=== PATIENT | female | born 1955 | race Asian ===

== ENCOUNTER 2020-06-26 11:10 | Outpatient (REF) | payer OTHER, SELFPAY ==
[2020-06-26 11:45] LABS: COVID-19 Test Negative (Negative)
== END 2020-06-26 11:11 | disposition home or self-care (01) ==
LOC: HO.LAB 11:10
PROVIDERS: Visit Provider Internal Medicine
DX: Z20.828 Contact with and (suspected) exposure to other viral communicable diseases (principal)
CPT/HCPCS: 87635

== ENCOUNTER 2020-07-17 12:35 | Outpatient (REF) | payer OTHER, SELFPAY ==
[2020-07-17 12:59] LABS: COVID-19 Test Negative (Negative); IDNOW Serial# 55D5AD1C
== END 2020-07-17 12:36 | disposition home or self-care (01) ==
LOC: HO.EMPCOV 12:35
PROVIDERS: Visit Provider Internal Medicine
DX: Z20.828 Contact with and (suspected) exposure to other viral communicable diseases (principal)
CPT/HCPCS: 87635; C9803

== ENCOUNTER 2020-07-31 16:16 | Outpatient (REF) | payer OTHER, SELFPAY ==
[2020-07-31 17:49] LABS: COVID-19 Test Negative (Negative)
== END 2020-07-31 16:17 | disposition home or self-care (01) ==
LOC: HO.EMPCOV 16:16
PROVIDERS: Visit Provider Internal Medicine
DX: Z20.828 Contact with and (suspected) exposure to other viral communicable diseases (principal)
CPT/HCPCS: 87635; C9803

== ENCOUNTER 2020-08-12 08:10 | Outpatient (REF) | payer OTHER, SELFPAY ==
[2020-08-12 11:18] LABS: COVID-19 Test Negative (Negative)
== END 2020-08-12 08:11 | disposition home or self-care (01) ==
LOC: HO.LAB 08:10
PROVIDERS: Visit Provider Internal Medicine
DX: Z20.828 Contact with and (suspected) exposure to other viral communicable diseases (principal)
CPT/HCPCS: 87635; C9803

== ENCOUNTER 2021-01-22 16:46 | Outpatient (REF) | payer OTHER, SELFPAY ==
[2021-01-22 17:32] LABS: COVID-19 Test Negative (Negative)
[2021-01-22 18:00] LABS: Glucose Urine UA NEG (NEG); Leukocyte Esterase Urine NEG (NEG); Nitrite Urine NEG (NEG); Urine Blood TRACE (NEG); Urine Ketones NEG (NEG); Urine Protein NEG (NEG-TRACE)
[2021-01-22 18:01] LABS: Appearance Urine CLEAR; Color Urine YELLOW
[2021-01-22 18:09] LABS: WBC Urine 0 /HPF (0-4)
== END 2021-01-22 16:47 | disposition home or self-care (01) ==
LOC: HO.LAB 16:46
PROVIDERS: Visit Provider Internal Medicine Medical Oncology
DX: R50.9 Fever, unspecified (principal); Z20.822 Contact with and (suspected) exposure to COVID-19
CPT/HCPCS: 36415; 81001; 87635

== ENCOUNTER 2021-01-26 08:17 | Outpatient (REF) | payer OTHER, SELFPAY ==
[2021-01-26 10:12] LABS: MANUAL DIFF FLAG NO
[2021-01-26 10:19] LABS: Basophils Percent Auto 0.4 % (0-2); Eosinophils Absolute Auto 0.1 X10*3/uL (0.0-0.4); Eosinophils Percent Auto 0.6 % (0-4); Hemoglobin 11.6 g/dl (12.0-16.0); Imm Gran Abs Auto 0.03 X10*3/uL (0.00-0.03); Imm Gran Pct Auto 0.4 % (0.0-0.4); Lymphocytes Absolute Auto 2.2 X10*3/uL (1.2-4.9); Lymphocytes Percent Auto 26.3 % (20-40); Mean Corpuscular HGB Conc 30.5 g/dl (31.0-35.0); Mean Corpuscular Volume 78.5 fL (80-98); Mean Platelet Volume 8.9 fL (9.4-12.3); Monocytes Absolute Auto 0.6 X10*3/uL (0.1-1.2); Monocytes Percent Auto 7.2 % (2-11); Neutrophils Absolute Auto 5.5 X10*3/uL (2.0-8.3); Neutrophils Percent Auto 65.1 % (45-73); Platelet Count 374 X10*3/uL (160-400); Red Blood Count 4.84 X10*6/uL (4.20-5.50); Red Cell Distribution Width 14.3 % (11.0-16.0); White Blood Count 8.5 X10*3/uL (4.8-10.8)
[2021-01-26 10:52] LABS: Alanine Aminotransferase 14 U/L (0-31); Albumin Level 3.9 g/dL (3.5-5.0); Alkaline Phosphatase 123 U/L (39-117); Anion Gap 13 (12-20); Aspartate Amino Transferase 17 U/L (5-31); Bilirubin Total 0.4 mg/dL (0.0-1.0); Blood Urea Nitrogen 13 mg/dL (9-16); Calcium 9.3 mg/dL (8.4-10.2); Carbon Dioxide 29 mmol/L (22-29); Chloride 103 mmol/L (96-108); Cholesterol 168 mg/dL; Estimated Glomerular Filt Rate > 60; Glucose Fasting 104 mg/dL (60-99); HDL Cholesterol 44 mg/dL; LDL Cholesterol Calculated 111 mg/dl; Sodium 141 mmol/L (135-145); Total Protein 7.3 g/dL (6.5-8.0); Triglycerides 66 mg/dL
[2021-01-26 11:15] LABS: Thyroid Stimulating Hormone 1.27 uIU/mL (0.32-4.0); Vitamin D 25-OH Total 35.7 ng/mL (>30)
[2021-01-26 11:43] LABS: Erythrocyte Sedimentation Rate 72 MM/HR (0-20)
[2021-01-26 13:25] LABS: Lactate Dehydrogenase 183 U/L (122-220); Rheumatoid Factor < 15.0 IU/mL (<15.0)
[2021-01-30 11:56] LABS: IgA 212 mg/dL (70-320); IgG 1352 mg/dL (600-1540); IgM 291 mg/dL (50-300)
[2021-01-30 14:46] LABS: Anti Nuclear Antibody Pattern Mitotic, Centrosome; Anti Nuclear Antibody Screen POSITIVE (NEGATIVE)
== END 2021-01-26 08:18 | disposition home or self-care (01) ==
LOC: HO.LAB 08:17
PROVIDERS: Internal Medicine Medical Oncology; PCP Internal Medicine; Visit Provider Internal Medicine
DX: R53.83 Other fatigue (principal); R70.0 Elevated erythrocyte sedimentation rate; E78.00 Pure hypercholesterolemia, unspecified; R61 Generalized hyperhidrosis
CPT/HCPCS: 36415; 80053; 80061; 82306; 82784; 83615; 84443; 85025; 85652; 86038; 86039; 86334; 86431

== ENCOUNTER 2021-01-27 12:21 | Outpatient (REF) | payer OTHER, SELFPAY ==
[2021-01-27 13:48] LABS: C Reactive Protein 0.62 mg/dL (< or = 0.50); Iron 30 mcg/dL (30-160); Percent Iron Saturation 11 % (15-50); Total Iron Binding Capacity 277 mcg/dL (228-428); Unsaturated Iron Binding 247 ug/dL
[2021-01-27 14:09] LABS: Ferritin 68 ng/mL (10-250)
[2021-01-30 04:53] LABS: HBS Num1 368.87 mIU/mL (0-7.99); HBc Num1 0.13 S/CO (0.00-0.79); Hepatitis B Core Antibody Nonreactive (Nonreactive); ~HepC Num1 0.21 S/CO (0.00-0.79); ~Hepatitis B Surface Antibody REACTIVE (Nonreactive); ~Hepatitis C Antibody Nonreactive (Nonreactive)
[2021-01-30 04:54] LABS: HBsAGNum1 0.21 S/CO (0.00-0.99); Hepatitis B Surface Antigen Negative (Negative)
[2021-01-31 07:38] LABS: Hepatitis A Antibody IgM 0.21 Index (0-0.79); ~Hepatitis A Antibody IgM Nonreactive (Nonreactive)
== END 2021-01-27 12:22 | disposition home or self-care (01) ==
LOC: HO.HMGCLDS 12:21
PROVIDERS: PCP Internal Medicine; Visit Provider Internal Medicine Medical Oncology
DX: R53.83 Other fatigue (principal); R79.89 Other specified abnormal findings of blood chemistry
CPT/HCPCS: 36415; 82550; 82728; 83540; 86140; 86704; 86706; 86709; 86803; 87340

== ENCOUNTER 2021-01-30 09:56 | Outpatient (REF) | payer OTHER, SELFPAY ==
--- NOTE | ~2021-01-30 | CT_ITS ---
EXAMINATION: CT ABDOMEN AND PELVIS WITHOUT AND WITH CONTRAST CLINICAL INFORMATION: Generalized hyperhidrosis COMPARISON: Previous abdominal ultrasound September 2013 TECHNIQUE: Multidetector volumetric imaging was performed of the abdomen and pelvis before and after the IV administration of 85 mL of Omnipaque 350 intravenous contrast. Sagittal and coronal reformatted images were obtained on the technologist's workstation. This CT examination was performed using dose optimization techniques as appropriate, variously including the following: *Automated exposure control *Adjustment of mA and/or kV according to patient size (this includes techniques or standardized protocols for targeted exams where dose is matched to indication/reason for exam; i.e. extremities or head) *Use of iterative reconstruction technique DLP: 711 mGy-cm FINDINGS: LUNG BASES: The visualized lung bases are unremarkable. LIVER, GALLBLADDER, AND BILIARY TREE: The liver is normal in size, shape, and attenuation. No focal hepatic lesion or biliary ductal dilatation is present. The gallbladder is unremarkable with no evidence of radiopaque gallstones, gallbladder wall thickening, or obvious pericholecystic inflammatory changes. PANCREAS: Unremarkable SPLEEN: The calcification in the spleen likely related to old granulomatous disease. ADRENAL GLANDS: Unremarkable KIDNEYS AND URETERS: There areas of cortical thinning or scarring seen in both kidneys. There is a peripheral irregularly-shaped low-attenuation area in the lateral upper pole of the left kidney. Hounsfield units pre-IV contrast measure 22. Hounsfield units post-IV contrast measure 40 for example axial image 19 series 3 and 38 series 4. Appearance is not compatible with a simple cyst. This may represent a area of infection, infarct or complex cyst. For example, measuring 1.3 x 2.2 cm axial image 35 series 5, sagittal constructed image 34 and coronal reconstructed image 58. BLADDER: Unremarkable GASTROINTESTINAL TRACT: The small and large bowel are unremarkable. The appendix is unremarkable. There is apparent wall thickening of the stomach. This may be artifactual due to underdistention. Clinical correlation recommended. ABDOMINAL WALL: No significant hernia is appreciated. LYMPH NODES: Normal VASCULAR: There is a 1.1 x 1.2 cm splenic artery aneurysm axial image 32 series 4. There is question of a smaller adjacent thrombosed 8 mm aneurysm also seen axial image 32 series 4. PELVIC VISCERA: Unremarkable OSSEOUS STRUCTURES: There is degenerative disc disease at L5-S1. There is lower lumbar spine facet arthritis. There is spondylosis of the visualized lower thoracic spine. CT/CT abdomen pelvis wo/w con IMPRESSION: Bilateral renal cortical thinning or scarring. 1.2 x 2.2 cm heterogeneous peripheral low-attenuation area in the lateral upper pole of the left kidney. This is not compatible with a simple cyst. Differential would include areas of infection, recent infarct and complex cyst. 1.1 x 1.2 cm splenic artery aneurysm and probable adjacent smaller thrombosed 8 mm splenic artery aneurysm. Calcification in the spleen suggestive of old granulomatous disease. Apparent wall thickening of the proximal stomach. This may be artifactual due to underdistention.
--- NOTE | ~2021-01-30 | XR_ITS ---
EXAMINATION: XR CHEST CLINICAL INFORMATION: Generalized hyperhidrosis COMPARISON: Previous chest x-ray from 2008 TECHNIQUE: 2 views of the chest were obtained. FINDINGS: The cardiac and mediastinal contours are normal. The lungs are clear. There is no pleural effusion or pneumothorax. There are degenerative changes of the spine. XR/XR chest 2V IMPRESSION: No evidence for acute disease in the chest.
--- NOTE | ~2021-01-30 | MM_ITS ---
EXAMINATION: MM SCREENING DIGITAL BREAST TOMOSYNTHESIS, BILATERAL CLINICAL INFORMATION: Screening. Asymptomatic. History atypical lobular hyperplasia left breast. The lifetime risk of breast cancer based on the Tyrer-Cuzick Model is 25%. COMPARISON: Mammography: 11/03/2019, 09/28/2018, 05/28/2017, 01/05/2016 TECHNIQUE: Digital breast tomosynthesis is performed in both the craniocaudal and mediolateral oblique views along with computer-aided detection (CAD). Synthesized 2D images are generated from the tomosynthesis. Additional right MLO view is provided. FINDINGS: The breasts are heterogeneously dense, which may obscure small masses (ACR BI-RADS breast composition Category c). Breast tissue composition borders on average fibroglandular. Parenchymal pattern is similar to prior studies. There is no developing density or interval mass or architectural abnormality. No abnormal calcifications. Again, there is biopsy clip marker anterior lower outer left breast. The axilla and skin contours are unremarkable. No significant changes from prior studies. MM/MM tomosynthesis screening BI IMPRESSION: No mammographic evidence of malignancy. ASSESSMENT: BI-RADS 1: Negative RECOMMENDATION: 1. Routine annual mammography screening. 2. The lifetime risk of breast cancer based on the Tyrer-Cuzick Model is 25%. Additional annual adjunct screening with breast MRI may be of benefit in women with a risk score of 20% or greater. This patient's information was entered into a reminder system with a target due date for their next mammogram.
[2021-01-30] MEDS: iohexoL 350 MG/ML 100 ML INFUS..BTL IV (14:01)
[2021-02-01 23:57] LABS: TS Negative Control Passed; TS Panel A 3; TS Panel B 1; TS Positive Control Passed; TSpotTB Negative (SeeBelow)
== END 2021-01-30 09:57 | disposition home or self-care (01) ==
LOC: HO.CT 09:56
PROVIDERS: Absent Provider Internal Medicine Medical Oncology; PCP Internal Medicine; Visit Provider Internal Medicine
DX: Z12.31 Encounter for screening mammogram for malignant neoplasm of breast (principal); R79.89 Other specified abnormal findings of blood chemistry; I88.9 Nonspecific lymphadenitis, unspecified; R50.9 Fever, unspecified; R61 Generalized hyperhidrosis
CPT/HCPCS: 36415; 71046; 74178; 77063; 77067; 86481; Q9967

== ENCOUNTER 2021-02-01 16:33 | Outpatient (REF) | payer OTHER, SELFPAY ==
[2021-02-01 18:59] LABS: Creatinine Urine 54.04 mg/dL; Total Protein Urine Random < 7 mg/dL (<12)
[2021-02-02 11:37] LABS: Complement C3 93 mg/dL (83-193)
[2021-02-02 12:51] LABS: Anti DNA DS Antibody <1 IU/mL
[2021-02-02 22:37] LABS: Cyclic Citrullinated Peptide <16 UNITS
[2021-02-07 05:42] LABS: Aldolase 3.6 U/L (<=8.1)
== END 2021-02-01 16:34 | disposition home or self-care (01) ==
LOC: HO.LAB 16:33
PROVIDERS: PCP Internal Medicine; Visit Provider Student in an Organized Health Care Education/Training Program
DX: R76.8 Other specified abnormal immunological findings in serum (principal)
CPT/HCPCS: 36415; 82085; 84156; 86160; 86200; 86225

== ENCOUNTER 2021-02-13 15:37 | Outpatient (REF) | payer OTHER, SELFPAY ==
--- NOTE | ~2021-02-13 | CT_ITS ---
EXAMINATION: CT ANGIOGRAM ABDOMEN AND PELVIS CLINICAL INFORMATION: Renal infarct. COMPARISON: CT abdomen pelvis 01/30/2021 TECHNIQUE: Multiple axial images were obtained through the abdomen and pelvis following the administration of 100 mL of Omnipaque 350 intravenous contrast. Images were reviewed on a dedicated 3-D workstation. This CT examination was performed using dose optimization techniques as appropriate, variously including the following: *Automated exposure control *Adjustment of mA and/or kV according to patient size (this includes techniques or standardized protocols for targeted exams where dose is matched to indication/reason for exam; i.e. extremities or head) *Use of iterative reconstruction technique DLP: 305 mGy-cm VASCULAR FINDINGS: The distal descending thoracic aorta appears normal. The abdominal aorta appears unremarkable without aneurysm, dissection or significant atherosclerotic changes. The aortic bifurcation is patent. The visualized iliofemoral vessels all appear normal. The celiac and SMA are patent. The HENNA is patent. Again redemonstrated is a splenic artery aneurysm measuring about 1.4 cm. There is a small thrombosed 0.8 cm splenic aneurysm adjacent to this. There is a single renal artery supplying the right kidney which appears normal. On the left, there is a single patent renal artery seen. Of note, the left kidney demonstrates areas of chronic scarring in the lower pole with loss of cortex. Differential diagnosis would include previous infarct versus remote infection. It is also possible that an accessory lower pole branch that is no longer visualized could have thrombosed long ago. Also of note, however, is an area of cortical devascularization in the upper pole of the left kidney which appears to be an infarct, as well. This appears to be active and in evolution. When comparison is made to the prior study from just over 2 weeks ago on 01/30/2021, this appears to have evolved in the interim with slight decrease in size and loss of cortex. NONVASCULAR FINDINGS: LUNG BASES: The visualized lung bases are unremarkable. LIVER, GALLBLADDER, AND BILIARY TREE: The liver is normal in size, shape, and attenuation. No focal hepatic lesion or biliary ductal dilatation is present. The gallbladder is unremarkable with no evidence of radiopaque gallstones, gallbladder wall thickening, or obvious pericholecystic inflammatory changes. PANCREAS: Unremarkable. SPLEEN: Unremarkable. A few punctate splenic granulomas are present. ADRENAL GLANDS: Unremarkable. KIDNEYS AND URETERS: Please see description above regarding renal infarcts in left kidney. Some old chronic infarcts with cortical loss are noted in the right kidney near the upper pole laterally. No hydronephrosis is seen. No renal masses are seen. The ureters appear normal. No renal calculi are seen. BLADDER: Unremarkable. GASTROINTESTINAL TRACT: Wall thickening in the stomach is again seen most likely secondary to underdistention. The small and large bowel are unremarkable. The appendix is unremarkable. ABDOMINAL WALL: No significant hernia is appreciated. LYMPH NODES: No retroperitoneal lymphadenopathy is seen. PELVIC VISCERA: An anteverted uterus is present. An abnormal adnexal mass or free intraperitoneal fluid is not present. OSSEOUS STRUCTURES: Degenerative changes noted in the lower thoracic spine and in the lumbar spine at L5-S1. CT/CT angio abdomen pelvis IMPRESSION: 1. There is evidence of infarctions with chronic scarring in both kidneys, left greater than right. There is one area of active infarct which appears to be an evolution which appeared more acute on the 01/30/2021 CT scan and has already developed some mild cortical thinning at that site. The etiology for these infarcts is not clear. Concerning the largest infarct in the left lower pole, the distribution suggests that it may be secondary to remote thrombosis of an accessory lower pole branch. Chronic infection could produce such findings. Reflux is thought to be unlikely. Thrombotic disease or vasculitis would be other possibilities. 2. Splenic artery aneurysms, one thrombosed. 3. Other findings, as described above. This critical result was discussed with Dr. Vianca Watson at 10:15 AM on 02/14/2021, and it was ascertained that the content and urgency of the report was understood at the time of direct communication.
[2021-02-13 16:25] LABS: MANUAL DIFF FLAG NO
[2021-02-13 16:33] LABS: Basophils Percent Auto 0.1 % (0-2); Eosinophils Absolute Auto 0.1 X10*3/uL (0.0-0.4); Eosinophils Percent Auto 0.6 % (0-4); Hematocrit 33.7 % (37-47); Hemoglobin 10.2 g/dl (12.0-16.0); Imm Gran Abs Auto 0.02 X10*3/uL (0.00-0.03); Imm Gran Pct Auto 0.2 % (0.0-0.4); Lymphocytes Absolute Auto 3.1 X10*3/uL (1.2-4.9); Lymphocytes Percent Auto 31.4 % (20-40); Mean Corpuscular HGB Conc 30.3 g/dl (31.0-35.0); Mean Corpuscular Hemoglobin 23.7 pg (27.0-33.0); Mean Corpuscular Volume 78.4 fL (80-98); Mean Platelet Volume 9.4 fL (9.4-12.3); Monocytes Absolute Auto 0.7 X10*3/uL (0.1-1.2); Monocytes Percent Auto 6.6 % (2-11); Neutrophils Absolute Auto 6.1 X10*3/uL (2.0-8.3); Neutrophils Percent Auto 61.1 % (45-73); Platelet Count 302 X10*3/uL (160-400); Red Cell Distribution Width 14.6 % (11.0-16.0); White Blood Count 9.9 X10*3/uL (4.8-10.8)
[2021-02-14 07:30] LABS: HBS Num1 355.04 mIU/mL (0-7.99); HBc Num1 0.25 S/CO (0.00-0.79); HBsAGNum1 0.31 S/CO (0.00-0.99); Hepatitis B Core Antibody Nonreactive (Nonreactive); Hepatitis B Surface Antigen Negative (Negative); ~Hepatitis B Surface Antibody REACTIVE (Nonreactive); ~Hepatitis C Antibody Nonreactive (Nonreactive)
[2021-02-14 07:37] LABS: Erythrocyte Sedimentation Rate 40 MM/HR (0-20)
[2021-02-15 11:22] LABS: Complement C3 66 mg/dL (83-193)
[2021-02-15 13:27] LABS: PTT (LAC) Screen 36 sec (< OR = 40)
[2021-02-15 22:21] LABS: Kappa Light Chain, Free Serum 26.7 mg/L (3.3-19.4); Kappa/Lambda Lt Ch Free Ratio 1.78 (0.26-1.65)
[2021-02-16 06:27] LABS: Prot Elec - Albumin 3.5 g/dL (3.8-4.8); Prot Elec - Alpha1 0.5 g/dL (0.2-0.3); Prot Elec - Alpha2 0.9 g/dL (0.5-0.9); Prot Elec - Beta 1 0.4 g/dL (0.4-0.6); Prot Elec - Beta 2 0.4 g/dL (0.2-0.5); Prot Elec - Gamma 1.3 g/dL (0.8-1.7); Prot Elec - Total Protein 6.9 g/dL (6.1-8.1)
[2021-02-16 14:36] LABS: Anti Nuclear Antibody Pattern Nuclear, Homogeneous; Anti Nuclear Antibody Screen POSITIVE (NEGATIVE); Anti Nuclear Antibody Titer 1:40 titer
[2021-02-17 14:07] LABS: Myeloperoxidase Antibody <1.0 AI; Proteinase 3 PR3 Antibodies <1.0 AI
[2021-02-17 21:21] LABS: Protein C Activity 153 % (70-180); Protein S Activity rflx Tot&Fr 124 % (60-140)
== END 2021-02-13 15:38 | disposition home or self-care (01) ==
LOC: HO.LAB 15:37
PROVIDERS: Internal Medicine Medical Oncology; PCP Internal Medicine; Visit Provider Internal Medicine Nephrology
DX: N28.0 Ischemia and infarction of kidney (principal); D64.9 Anemia, unspecified; Z11.3 Encounter for screening for infections with a predominantly sexual mode of transmission
CPT/HCPCS: 36415; 74174; 83520; 84155; 84165; 85025; 85302; 85303; 85305; 85306; 85597; 85613; 85652; 85730; 86021; 86038; 86039; 86160; 86704; 86706; 86803; 87340

== ENCOUNTER → 2021-02-15 15:25 | Outpatient (REF) | payer OTHER, SELFPAY ==
--- NOTE | 2021-02-15 15:44 | ECG_ITS ---
Test Reason : ISCHEMIA, INFARC KID Blood Pressure : / mmHG Vent. Rate : 076 BPM Atrial Rate : 076 BPM P-R Int : 164 ms QRS Dur : 072 ms QT Int : 370 ms P-R-T Axes : 071 065 055 degrees QTc Int : 416 ms Normal sinus rhythm Normal ECG No previous ECGs available Referred By: Madalyn Antonio Electronically Signed By:MADALYN ANTONIO
[2021-02-15 16:48] LABS: Immature Retic Fraction 6.6 % (3.0-15.9); Retic HGB Equivalent 26.3 pg (30.0-35.0); Reticulocyte Percent 0.8 % (0.5-1.8); Reticulocytes Absolute 0.038 X10*6/uL (0.026-0.095)
[2021-02-15 17:40] LABS: Folate 8.8 ng/mL (> or = 4.0); Vitamin B12 294 pg/mL (200-900)
[2021-02-15 18:00] LABS: Glucose Urine UA NEG (NEG); Leukocyte Esterase Urine NEG (NEG); Nitrite Urine NEG (NEG); PH 6.5 (5.0-8.0); Urine Blood NEG (NEG); Urine Ketones NEG (NEG); Urine Protein NEG (NEG-TRACE)
[2021-02-15 18:08] LABS: Appearance Urine CLEAR; Color Urine YELLOW
[2021-02-16 14:17] LABS: Bilirubin Total 0.3 mg/dL (0.0-1.0); Iron 24 mcg/dL (30-160); Lactate Dehydrogenase 148 U/L (122-220); Percent Iron Saturation 8 % (15-50); Total Iron Binding Capacity 302 mcg/dL (228-428); Unsaturated Iron Binding 278 ug/dL
[2021-02-16 14:29] LABS: Ferritin 67 ng/mL (10-250)
[2021-02-17 17:23] LABS: Haptoglobin 249 mg/dL (43-212)
[2021-02-23 10:37] LABS: Lyme Abs Screen <0.90 index
== END ==
LOC: HO.CARD 15:25
PROVIDERS: PCP Internal Medicine; Referring Provider Internal Medicine Nephrology; Visit Provider Internal Medicine
DX: N28.0 Ischemia and infarction of kidney (principal); D64.9 Anemia, unspecified; N39.0 Urinary tract infection, site not specified
CPT/HCPCS: 36415; 81003; 82247; 82607; 82728; 82746; 83010; 83540; 83615; 85045; 86617; 86618; 93005

== ENCOUNTER → 2021-02-16 08:33 | Outpatient (REF) | payer OTHER, SELFPAY ==
--- NOTE | 2021-02-16 08:37 | CA_ITS ---
Transthoracic Echocardiogram Patient (Last, First, Middle): Radha Rubi, Gender: Female Date of : 1955 Age: 65 Procedure Date: 02/16/2021 Procedure Type: Transthoracic Echocardiogram Location: OP Height: 162.56 cm Weight: 60.33 kg BSA: 1.64 m2 Heart Rate: bpm BP: 148 / 88 mmHg Design Painter: Referring MD: Randolph Sousa MD Symptoms: N28.0 - Ischemia and infarction of kidney Study Quality: Good ECG Rhythm: Sinus Conclusions: - The left ventricular systolic function is normal. The visually estimated ejection fraction is between 60-65%. - No obvious valvular pathology seen on this study. Findings Left Ventricle Normal left ventricular cavity size. There is normal left ventricular wall thickness. The left ventricular systolic function is normal. The visually estimated ejection fraction is between 60-65%. There is no evidence of regional wall motion abnormalities. Diastolic function is normal for age. Right Ventricle Normal right ventricular cavity size and systolic function. Atria The left atrium is normal in size. The right atrium is normal in size. Aortic Valve There is a normal trileaflet aortic valve. There is no aortic valve stenosis. There is no aortic valve regurgitation. Mitral Valve The mitral valve appears normal. There is trace mitral valve regurgitation. There is no mitral valve stenosis. Pulmonic Valve The pulmonic valve was not well visualized. Tricuspid Valve Normal tricuspid valve structure. There is trace tricuspid valve regurgitation. The pulmonary artery systolic pressure is normal. Great Vessels The aortic annulus, sinuses of valsalva, asc aorta, and aortic arch are normal in size. Venous The inferior vena cava is normal in size and collapses greater than 50% with inspiration. Pericardium/Pleural There is no evidence of pericardial effusion. Prior Study Comparison No prior study available for comparison. Recommendations, Care & Conclusions No obvious valvular pathology seen on this study. Measurements 2D Linear Measurements RVIDd: 2.08 RVIDd Index: 1.27 IVSd: 0.87 0.6-0.9/0.6-1.0 cm LVIDd: 4.50 3.9-5.3/4.2-5.9 cm LVIDd Index: 2.74 2.4-3.2/2.2-3.1 cm/m2 LVIDs: 2.54 2.0-3.6 cm LVPWd: 1.01 0.7-1.1 cm Ao Root: 2.90 2.1-3.5 cm LA Diam: 2.80 2.7-3.8/3.0-4.0 cm LAIDs Index: 1.71 1.5-2.3 cm/m2 LV Mass: 175.06 67-162/88-224 g LV Mass Index: 106.74 43-95/49-115 g/m2 LVOT Diam: 2.00 3.0+(-)1.3 cm 2D Systolic Function EF 4C: 55.20 >55% EF 2C: 57.70 >55% EF BiP: 57.80 >55% Mitral Valve MV Pk E: 0.83 MV PK A: 0.65 MV Decel Time: 279.00 E/A: 1.30 E'Lateral: 9.68 E'Medial: 7.83 E/E' Med: 10.60 E/E' Lat: 8.60 Aortic Valve AoV Pk Sergey: 1.35 AoV Mn Sergey: 1.06 AoV VTI: 0.30 AoV Pk Grad: 7.00 Aov Mn Grad: 5.00 AMANDEEP Cont.VTI: 2.17 LVOT LVOT Pk Sergey: 1.01 LVOT Mn Sergey: 0.67 LVOT VTI: 0.21 LVOT Pk Grad: 4.00 LVOT Mn Grad: 2.00 LVOT Diam: 2.00 LVOT Area: 3.14 Diastolic Function MV Pk E: 0.83 MV Pk A: 0.65 E/A: 1.30 E'Medial: 7.83 E/E' Med: 10.60 E' Laterial: 9.68 E/E' Lat: 8.60 Tricuspid Valve TR Pk Sergey: 2.24 TR Pk Grad: 20.00 RA Press: 3.00 RVSP: 23.00 Great Vessels Aorta Ao Root-2D: 2.90 2.0-3.7 cm Ao Asc: 3.10 2.1-3.4 cm Ao Arch: 2.90 Updated in Other Vendor System with Status of Final Randolph Sousa MD electronically signed on 02/16/2021 2:24:18 PM with status of Final
--- NOTE | 2021-02-16 08:37 | HM_ITS ---
INDICATION FOR THE TEST: Unspecified atrial fibrillation. INTERPRETATION: The patient was hooked up to cardiac event monitor from 02/16/2021 to 03/25/2021 for a total period of 37 days. FINDINGS: Baseline rhythm is normal sinus rhythm with heart rate varying from 64 beats per minute to 101 beats per minute. Rare isolated PACs were noted. The patient had 1 episode of symptom of palpitation on 03/16/2021 at 4:13 a.m., which correlated with sinus rhythm. CONCLUSION: Cardiac event monitor is remarkable. 1. Baseline normal sinus rhythm with rare isolated PACs. 2. No evidence of atrial fibrillation. 3. The patient reported symptoms of palpitations correlated with sinus rhythm. Balta Palmer MD NRS/MODL / [id number]
== END ==
LOC: HO.CARD 08:33
PROVIDERS: Internal Medicine Medical Oncology; PCP Internal Medicine; Visit Provider Internal Medicine
DX: I48.91 Unspecified atrial fibrillation (principal); N28.0 Ischemia and infarction of kidney; D64.9 Anemia, unspecified
CPT/HCPCS: 36415; 93270; 93306

== ENCOUNTER 2021-02-23 14:30 | Outpatient (REF) | payer OTHER, SELFPAY ==
[2021-02-24 07:54] LABS: FIT Int Ctl YES; FIT1 NEGATIVE (NEGATIVE)
[2021-02-24 07:57] LABS: FIT2 NEGATIVE (NEGATIVE)
== END 2021-02-23 14:31 | disposition home or self-care (01) ==
LOC: HO.LNP 14:30
PROVIDERS: Referring Provider Internal Medicine; Visit Provider Internal Medicine Medical Oncology
DX: D64.9 Anemia, unspecified (principal)
CPT/HCPCS: 82274

== ENCOUNTER → 2021-03-08 07:32 | Outpatient (REF) | payer OTHER, SELFPAY ==
--- NOTE | 2021-03-08 07:34 | CA_ITS ---
Transthoracic Echocardiogram Patient (Last, First, Middle): Radha Rubi, Gender: Female Date of : 1955 Age: 65 Procedure Date: 03/08/2021 Procedure Type: Transthoracic Echocardiogram Location: OP Height: 162.56 cm Weight: 61.24 kg BSA: 1.66 m2 Heart Rate: bpm BP: 126 / 76 mmHg Senior Staff Specialized Employment: [facility] MD: Randolph Sousa MD Symptoms: Q21.1 - Atrial septal defect Study Quality: Good ECG Rhythm: Sinus Conclusions: - Bubble study is strongly positive during valsalva; no transit of saline bubbles during rest. Findings Atria Bubble study is strongly positive during valsalva; no transit of saline bubbles during rest. Prior Study Comparison Changes noted compared to prior study dated: 02/16/2021. Updated in Other Vendor System with Status of Final Randolph Sousa MD electronically signed on 03/08/2021 11:52:12 AM with status of Final
== END ==
LOC: HO.CARD 07:32
PROVIDERS: Visit Provider Internal Medicine
DX: Q21.1 Atrial septal defect (principal)
CPT/HCPCS: 93308

== ENCOUNTER → 2021-03-13 15:30 | Outpatient (BNVA) | payer OTHER, SELFPAY | PROVIDERS: PCP Internal Medicine; Referring Provider Internal Medicine; Visit Provider Internal Medicine ==

== ENCOUNTER 2021-03-14 11:10 | Outpatient (REF) | payer OTHER, SELFPAY ==
[2021-03-14 12:57] LABS: MANUAL DIFF FLAG NO
[2021-03-14 13:14] LABS: Baso%MD 0.1 %; Eos%MD 0.4 %; Hematocrit 36.9 % (37-47); Hemoglobin 11.4 g/dl (12.0-16.0); IG%MD 0.3 %; Immature Retic Fraction 12.2 % (3.0-15.9); Lymph%MD 22.4 %; Mean Corpuscular HGB Conc 30.9 g/dl (31.0-35.0); Mean Corpuscular Hemoglobin 24.5 pg (27.0-33.0); Mean Corpuscular Volume 79.2 fL (80-98); Mean Platelet Volume 9.7 fL (9.4-12.3); Mono%MD 6.6 %; Neut%MD 70.2 %; Platelet Count 306 X10*3/uL (160-400); Red Blood Count 4.66 X10*6/uL (4.20-5.50); Red Cell Distribution Width 15.5 % (11.0-16.0); Retic HGB Equivalent 26.5 pg (30.0-35.0); Reticulocyte Percent 0.7 % (0.5-1.8); Reticulocytes Absolute 0.033 X10*6/uL (0.026-0.095); White Blood Count 9.9 X10*3/uL (4.8-10.8)
[2021-03-14 13:15] LABS: Basophils Percent Auto 0.2 % (0-2); Eosinophils Absolute Auto 0.1 X10*3/uL (0.0-0.4); Eosinophils Percent Auto 0.6 % (0-4); Hematocrit 36.9 % (37-47); Hemoglobin 11.2 g/dl (12.0-16.0); Imm Gran Abs Auto 0.06 X10*3/uL (0.00-0.03); Imm Gran Pct Auto 0.6 % (0.0-0.4); Lymphocytes Absolute Auto 2.3 X10*3/uL (1.2-4.9); Lymphocytes Percent Auto 22.8 % (20-40); Mean Corpuscular HGB Conc 30.4 g/dl (31.0-35.0); Mean Corpuscular Volume 79.2 fL (80-98); Mean Platelet Volume 9.7 fL (9.4-12.3); Monocytes Absolute Auto 0.6 X10*3/uL (0.1-1.2); Monocytes Percent Auto 5.7 % (2-11); Neutrophils Absolute Auto 6.9 X10*3/uL (2.0-8.3); Neutrophils Percent Auto 70.1 % (45-73); Platelet Count 297 X10*3/uL (160-400); Red Blood Count 4.66 X10*6/uL (4.20-5.50); Red Cell Distribution Width 15.4 % (11.0-16.0); White Blood Count 9.9 X10*3/uL (4.8-10.8)
[2021-03-14 13:28] LABS: Lactate Dehydrogenase 164 U/L (122-220)
[2021-03-14 13:41] LABS: C Reactive Protein 0.25 mg/dL (< or = 0.50); Rheumatoid Factor < 15.0 IU/mL (<15.0)
[2021-03-14 14:05] LABS: Erythrocyte Sedimentation Rate 56 MM/HR (0-20)
[2021-03-14 14:58] LABS: Band Neutrophils Percent 1 % (3-5); Basophils Abs Manual 0.1 X10*3/uL (0.0-0.3); Basophils Percent Manual 1 % (0-1); Lymphocytes Absolute Manual 2.2 X10*3/uL (0.6-4.8); Lymphocytes Percent Manual 22 % (20-40); Monocytes Absolute Manual 0.4 X10*3/uL (0.0-1.2); Monocytes Percent Manual 4 % (2-11); Neutrophils Absolute Manual 7.2 X10*3/uL (2.2-7.9); Neutrophils Percent Manual 72 % (45-73)
[2021-03-14 15:02] LABS: Acanthocytes 1+ (0-2) /OIF; RBC Morphology NOTED
[2021-03-14 15:03] LABS: Platelet Estimate NORMAL (NORMAL); Platelet Morphology Comment NORMAL
[2021-03-14 19:13] LABS: Alanine Aminotransferase 9 U/L (0-31); Alkaline Phosphatase 127 U/L (39-117); Anion Gap 16 (12-20); Aspartate Amino Transferase 17 U/L (5-31); Bilirubin Direct < 0.2 mg/dL (0.0-0.5); Bilirubin Total 0.4 mg/dL (0.0-1.0); Blood Urea Nitrogen 14 mg/dL (9-16); Calcium 9.4 mg/dL (8.4-10.2); Carbon Dioxide 27 mmol/L (22-29); Chloride 102 mmol/L (96-108); Estimated Glomerular Filt Rate > 60; Glucose Random 96 mg/dL (60-115); Iron 41 mcg/dL (30-160); Percent Iron Saturation 13 % (15-50); Potassium 3.8 mmol/L (3.3-5.1); Sodium 141 mmol/L (135-145); Total Iron Binding Capacity 314 mcg/dL (228-428); Total Protein 7.6 g/dL (6.5-8.0); Unsaturated Iron Binding 273 ug/dL
[2021-03-15 10:26] LABS: Complement C3 127 mg/dL (83-193)
[2021-03-15 13:25] LABS: Ferritin 73 ng/mL (10-250)
[2021-03-16 10:02] LABS: Anti DNA DS Antibody <1 IU/mL; Myeloperoxidase Antibody <1.0 AI; Proteinase 3 PR3 Antibodies <1.0 AI; SM/Ribonucleoprotein Ab <1.0 NEG AI (<1.0 NEG); Smith Protein <1.0 NEG AI (<1.0 NEG)
[2021-03-16 15:47] LABS: Cyclic Citrullinated Peptide <16 UNITS
== END 2021-03-14 11:11 | disposition home or self-care (01) ==
LOC: HO.LAB 11:10
PROVIDERS: Internal Medicine; Internal Medicine Medical Oncology; PCP Internal Medicine; Visit Provider Student in an Organized Health Care Education/Training Program
DX: D64.9 Anemia, unspecified (principal); N28.0 Ischemia and infarction of kidney; I77.6 Arteritis, unspecified; R76.8 Other specified abnormal immunological findings in serum
CPT/HCPCS: 36415; 80048; 80076; 82728; 83540; 83615; 85007; 85025; 85027; 85045; 85652; 86021; 86140; 86160; 86200; 86225; 86235; 86431; 87040

== ENCOUNTER 2021-03-26 08:19 | Outpatient (REF) | payer OTHER, SELFPAY ==
--- NOTE | ~2021-03-26 | CT_ITS ---
EXAMINATION: CT ANGIOGRAM CHEST CLINICAL INFORMATION: Rule out arteritis. COMPARISON: Previous chest x-ray January 2021 and CTA of the abdomen and pelvis January 2021 TECHNIQUE: Multiple axial images were obtained through the chest after the administration of 70 mL of Omnipaque 350 intravenous contrast. Extensive vascular post-processing including 2-dimensional and 3-dimensional reformatted images were created and reviewed on an independent workstation. This CT examination was performed using dose optimization techniques as appropriate, variously including the following: *Automated exposure control *Adjustment of mA and/or kV according to patient size (this includes techniques or standardized protocols for targeted exams where dose is matched to indication/reason for exam; i.e. extremities or head) *Use of iterative reconstruction technique DLP: 120 mGy-cm FINDINGS: The thoracic aorta is normal in caliber. The ascending thoracic aorta measures 3 cm. The aortic arch measures 5 cm. The descending thoracic aorta measures 2.3 cm. No aneurysm, dissection or wall thickening to suggest arteritis is seen. Great vessel origins are patent and normal in caliber without evidence of dilatation, stricture or wall thickening/arteritis. The pulmonary arteries are patent. The pulmonary arteries are normal in caliber without wall thickening to suggest arteritis. The heart does not appear enlarged. There is no pericardial effusion. There is no coronary artery calcification. There are small mediastinal and hilar lymph nodes. There are calcified right infrahilar subcarinal lymph nodes likely related to old granulomatous disease. The lungs are clear. No chest wall mass or enlarged axillary lymph nodes are seen. There is a 1 x 1.4 cm splenic artery aneurysm. There is an adjacent 8 mm thrombosed splenic artery aneurysm. There is irregularity with wall thickening and areas of mild dilatation and narrowing of the right main renal artery. There is question of mild wall thickening of the the distal left renal artery in the the left renal hilum. There are bilateral renal infarcts. There are calcifications in the spleen suggestive of old granulomatous disease. There are degenerative changes of the spine. CT/CT angio chest IMPRESSION: No evidence of arteritis in the chest.
[2021-03-26] MEDS: iohexoL 350 MG/ML 100 ML INFUS..BTL 70 ML IV (09:03)
== END 2021-03-26 08:20 | disposition home or self-care (01) ==
LOC: HO.CT 08:19
PROVIDERS: PCP Internal Medicine; Visit Provider Internal Medicine
DX: I77.6 Arteritis, unspecified (principal); N28.0 Ischemia and infarction of kidney; R76.8 Other specified abnormal immunological findings in serum
CPT/HCPCS: 71275; Q9967

== ENCOUNTER 2021-04-14 10:55 | Outpatient (REF) | payer OTHER, SELFPAY ==
[2021-04-14 11:32] LABS: COVID-19 Test Negative (Negative); IDNOW Serial# 9DD0AD1C
== END 2021-04-14 10:56 | disposition home or self-care (01) ==
LOC: HO.LAB 10:55
PROVIDERS: Visit Provider Internal Medicine
DX: Z20.822 Contact with and (suspected) exposure to COVID-19 (principal)
CPT/HCPCS: 36415; 87635

== ENCOUNTER 2021-04-18 08:31 | Outpatient (REF) | payer OTHER, SELFPAY ==
[2021-04-18 08:52] LABS: COVID-19 Test Negative (Negative)
== END 2021-04-18 08:32 | disposition home or self-care (01) ==
LOC: HO.LAB 08:31
PROVIDERS: PCP Internal Medicine; Visit Provider Internal Medicine
DX: Z20.822 Contact with and (suspected) exposure to COVID-19 (principal)
CPT/HCPCS: 36415; 87635; C9803

== ENCOUNTER 2021-04-21 08:50 | Outpatient (REF) | payer OTHER, SELFPAY ==
[2021-04-21 10:13] LABS: MANUAL DIFF FLAG NO
[2021-04-21 10:15] LABS: Basophils Percent Auto 0.3 % (0-2); Eosinophils Absolute Auto 0.1 X10*3/uL (0.0-0.4); Eosinophils Percent Auto 0.9 % (0-4); Hematocrit 35.6 % (37-47); Hemoglobin 10.6 g/dl (12.0-16.0); Imm Gran Abs Auto 0.03 X10*3/uL (0.00-0.03); Imm Gran Pct Auto 0.3 % (0.0-0.4); Lymphocytes Absolute Auto 2.2 X10*3/uL (1.2-4.9); Lymphocytes Percent Auto 21.6 % (20-40); Mean Corpuscular HGB Conc 29.8 g/dl (31.0-35.0); Mean Corpuscular Hemoglobin 23.4 pg (27.0-33.0); Mean Corpuscular Volume 78.6 fL (80-98); Mean Platelet Volume 9.8 fL (9.4-12.3); Monocytes Absolute Auto 0.8 X10*3/uL (0.1-1.2); Monocytes Percent Auto 7.7 % (2-11); Neutrophils Percent Auto 69.2 % (45-73); Platelet Count 318 X10*3/uL (160-400); Red Blood Count 4.53 X10*6/uL (4.20-5.50); Red Cell Distribution Width 15.6 % (11.0-16.0); White Blood Count 10.1 X10*3/uL (4.8-10.8)
[2021-04-21 10:46] LABS: Alanine Aminotransferase 10 U/L (0-31); Albumin Level 3.9 g/dL (3.5-5.0); Alkaline Phosphatase 110 U/L (39-117); Anion Gap 13 (12-20); Aspartate Amino Transferase 11 U/L (5-31); Bilirubin Total 0.4 mg/dL (0.0-1.0); Blood Urea Nitrogen 16 mg/dL (9-16); C Reactive Protein 0.29 mg/dL (< or = 0.50); Calcium 9.5 mg/dL (8.4-10.2); Carbon Dioxide 27 mmol/L (22-29); Chloride 104 mmol/L (96-108); Estimated Glomerular Filt Rate > 60; Glucose Random 96 mg/dL (60-115); Potassium 3.8 mmol/L (3.3-5.1); Sodium 140 mmol/L (135-145)
[2021-04-21 10:57] LABS: Ferritin 66 ng/mL (10-250)
[2021-04-21 11:04] LABS: Erythrocyte Sedimentation Rate 50 MM/HR (0-20)
[2021-04-23 19:07] LABS: ANA Pattern 2 Nuclear, Homogeneous; ANA Titer 2 1:40 titer; Anti Nuclear Antibody Pattern Mitotic, Centrosome; Anti Nuclear Antibody Screen POSITIVE (NEGATIVE); Anti Nuclear Antibody Titer 1:40 titer
== END 2021-04-21 08:51 | disposition home or self-care (01) ==
LOC: HO.LAB 08:50
PROVIDERS: PCP Internal Medicine; Visit Provider Internal Medicine
DX: D64.9 Anemia, unspecified (principal); R70.0 Elevated erythrocyte sedimentation rate; N28.0 Ischemia and infarction of kidney
CPT/HCPCS: 36415; 80053; 82728; 85025; 85652; 86038; 86039; 86140

== ENCOUNTER 2021-04-27 10:01 | Outpatient (REF) | payer OTHER, SELFPAY ==
--- NOTE | ~2021-04-27 | US_ITS ---
EXAMINATION: ULTRASOUND ARTERIAL RIGHT LOWER EXTREMITY CLINICAL INFORMATION: Right groin pain and swelling post angiogram 04/25/2021 COMPARISON: None TECHNIQUE: Doppler color and grayscale evaluation of the arteries of the right groin was performed including waveform spectral analysis. Ultrasound-guided manual compression of the small common femoral artery aneurysm was performed in 2 5 minute intervals. FINDINGS: The right common femoral artery is patent. There is a small partially thrombosed right common femoral artery aneurysm measuring 1.3 x 1.1 x 0.7 cm sagittal transverse and AP dimension. This has a 0.3 cm neck. Images following manual ultrasound-guided compression demonstrate complete occlusion of the small pseudoaneurysm. The right common femoral vein is patent. There is no hematoma. 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 This was occluded using ultrasound guided compression.
== END 2021-04-27 10:02 | disposition home or self-care (01) ==
LOC: HO.US 10:01
PROVIDERS: PCP Internal Medicine; Visit Provider Radiology Diagnostic Radiology
DX: R10.31 Right lower quadrant pain (principal); R19.00 Intra-abdominal and pelvic swelling, mass and lump, unspecified site; Z98.890 Other specified postprocedural states
CPT/HCPCS: 93926

== ENCOUNTER 2021-04-30 07:30 | Outpatient (REF) | payer OTHER, SELFPAY ==
--- NOTE | ~2021-04-30 | US_ITS ---
EXAMINATION: ULTRASOUND ARTERIAL RIGHT LOWER EXTREMITY CLINICAL INFORMATION: Follow up pseudoaneurysm COMPARISON: Previous exam 04/27/2021 TECHNIQUE: Doppler, color and grayscale evaluation of the arteries of the right groin including waveform spectral analysis FINDINGS: The right common femoral artery is patent. No patent pseudoaneurysm is seen. There is a residual hypoechoic soft tissue anterior/superficial to the common femoral artery measuring 1.3 x 0.4 x 0.9 cm that does not contain flow compatible with old pseudoaneurysm site seen on prior exam. This is decreased in size from previous exam when this measured 1.3 x 0.7 x 1.1 cm. US/US arterial duplex LE RT IMPRESSION: Occluded right common femoral artery pseudoaneurysm.
== END 2021-04-30 07:31 | disposition home or self-care (01) ==
LOC: HO.US 07:30
PROVIDERS: Visit Provider Radiology Diagnostic Radiology
DX: Q14.2 Congenital malformation of optic disc (principal)
CPT/HCPCS: 93926

== ENCOUNTER 2021-05-03 12:24 | Outpatient (REF) | payer OTHER, SELFPAY ==
--- NOTE | ~2021-05-03 | US_ITS ---
EXAMINATION: US EXTRACRANIAL CAROTID DUPLEX, BILATERAL CLINICAL INFORMATION: Arterial fibromuscular dysplasia COMPARISON: None TECHNIQUE: Real-time ultrasound and Doppler techniques (integrating B-mode 2-D vascular images, Doppler spectral analysis and color-flow Doppler imaging) were utilized to interrogate the extracranial carotid arteries, the vertebral arteries and proximal subclavian arteries bilaterally. The degree of stenosis is determined by criteria similar to NASCET. FINDINGS: Right Side: 1. There is no atherosclerotic plaque seen in the bifurcation/proximal ICA region. There is question of mild wall thickening of the right common carotid artery and proximal external carotid artery. 2. The common carotid artery PSV proximally is 63 cm/s and distally 53 cm/s. 3. The proximal internal carotid artery velocities are 51 cm/s systolic and 19 cm/s diastolic. 4. The proximal external carotid artery PSV is 70 cm/s. 5. The vertebral artery shows antegrade flow. 6. The subclavian artery waveforms are normal. Left Side: 1. There is no atherosclerotic plaque seen in the bifurcation/proximal ICA region. There is question of mild wall thickening of the left common carotid artery and proximal ICA. 2. The common carotid artery PSV proximally is 96 cm/s and distally 60 cm/s. 3. The proximal internal carotid artery velocities are 52 cm/s systolic and 20 cm/s diastolic. 4. The proximal external carotid artery PSV is 62 cm/s. 5. The vertebral artery shows antegrade flow. 6. The subclavian artery waveforms are normal. US/US carotid duplex BI IMPRESSION: 1. RIGHT: No atherosclerotic plaque or evidence of stenosis. Question mild wall thickening of the common carotid artery and proximal external carotid artery. 2. LEFT: No atherosclerotic plaque or evidence of stenosis. Question mild wall thickening of the common carotid artery and proximal internal carotid artery. Follow-up CTA of the neck may be helpful.
== END 2021-05-03 12:25 | disposition home or self-care (01) ==
LOC: HO.US 12:24
PROVIDERS: PCP Internal Medicine; Visit Provider Internal Medicine
DX: I77.3 Arterial fibromuscular dysplasia (principal)
CPT/HCPCS: 93880

== ENCOUNTER 2021-05-16 09:38 | Outpatient (REF) | payer OTHER, SELFPAY ==
--- NOTE | ~2021-05-16 | CT_ITS ---
EXAMINATION: CT ANGIOGRAM NECK WITH CONTRAST CT ANGIOGRAM BRAIN WITH CONTRAST CLINICAL INFORMATION: Arterial fibromuscular dysplasia. COMPARISON: Carotid ultrasound May 03, 2021. TECHNIQUE: Test bolus sequences followed by intravenous administration 70 mL of Omnipaque 350. Helical imaging was performed in the axial plane from the thoracic inlet to the skull vertex. Delayed postcontrast imaging of the head was also performed. The data was processed at the medicine technologist workstation for generation of MIP sequences. Angled MIPs and volume rendered reformatted images were also generated at an offline 3D workstation. Stenoses are assessed in accordance with NASCET criteria unless otherwise indicated. This CT examination was performed using dose optimization techniques as appropriate, variously including the following: *Automated exposure control *Adjustment of mA and/or kV according to patient size (this includes techniques or standardized protocols for targeted exams where dose is matched to indication/reason for exam; i.e. extremities or head) *Use of iterative reconstruction technique DLP: 2285 mGy-cm FINDINGS: Head CT: There is no intracranial hemorrhage, large acute infarction, or mass lesion. The ventricles are normal in size and configuration without evidence of hydrocephalus. The dural venous sinuses are normally opacified. No abnormal enhancement is seen. The visualized paranasal sinuses and mastoid air cells are clear. Neck CTA: The aortic arch and great vessel origins are patent. There is mild wall thickening involving the distal aspect of the bilateral common carotid arteries extending to the carotid bifurcation and along the proximal aspects of the bilateral external carotid arteries. No luminal narrowing or irregularity is seen. There is no evidence of beading or pseudoaneurysm. The cervical ICAs are normal. The vertebral arteries are unremarkable. Evaluation for wall thickening along the great vessel origins is somewhat limited due to artifact emanating from venous contrast. Head CTA: No intracranial aneurysm is seen. The intracranial internal carotid arteries appear normal. The anterior cerebral artery, anterior communicating artery, and middle cerebral arteries appear normal. The intradural vertebral arteries and basilar artery appear normal. The posterior cerebral arteries appear normal. 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 Non-vascular findings: Mild degenerative changes are seen within the cervical spine including at the C5-C6 and C6-C7 levels. There is no significant narrowing of the spinal canal. Left-sided neural foraminal stenosis is seen at C5-C6. The cervical soft tissues are within normal limits. CT/CT angio head neck IMPRESSION: CT head: No intracranial hemorrhage or large acute infarction. CTA neck: Mild wall thickening is seen involving the distal aspect of the bilateral common carotid arteries extending to the carotid bifurcations and along the proximal external carotid artery branches. No luminal narrowing. No pseudoaneurysm. CTA head: Normal appearance of the intracranial arteries. Findings discussed directly with the patient on 05/17/2021 at 11:43 AM.
[2021-05-16] MEDS: iohexoL 350 MG/ML 100 ML INFUS..BTL 70 ML IV (10:34)
== END 2021-05-16 09:39 | disposition home or self-care (01) ==
LOC: HO.CT 09:38
PROVIDERS: Visit Provider Internal Medicine
DX: I77.3 Arterial fibromuscular dysplasia (principal)
CPT/HCPCS: 70496; 70498; Q9967

== ENCOUNTER 2021-05-18 12:24 | Outpatient (REF) | payer OTHER, SELFPAY ==
[2021-05-18 12:56] LABS: COVID-19 Test Negative (Negative)
== END 2021-05-18 12:25 | disposition home or self-care (01) ==
LOC: HO.LAB 12:24
PROVIDERS: Visit Provider Internal Medicine
DX: Z20.822 Contact with and (suspected) exposure to COVID-19 (principal)
CPT/HCPCS: 36415; 87635; C9803

== ENCOUNTER 2021-05-28 08:37 | Outpatient (REF) | payer OTHER, SELFPAY ==
[2021-05-28 10:33] LABS: MANUAL DIFF FLAG NO
[2021-05-28 10:43] LABS: Basophils Percent Auto 0.4 % (0-2); Eosinophils Absolute Auto 0.2 X10*3/uL (0.0-0.4); Eosinophils Percent Auto 1.7 % (0-4); Hematocrit 36.4 % (37-47); Imm Gran Abs Auto 0.04 X10*3/uL (0.00-0.03); Imm Gran Pct Auto 0.4 % (0.0-0.4); Lymphocytes Absolute Auto 2.3 X10*3/uL (1.2-4.9); Lymphocytes Percent Auto 23.4 % (20-40); Mean Corpuscular HGB Conc 30.2 g/dl (31.0-35.0); Mean Corpuscular Hemoglobin 24.1 pg (27.0-33.0); Mean Corpuscular Volume 79.6 fL (80-98); Mean Platelet Volume 9.6 fL (9.4-12.3); Monocytes Absolute Auto 0.6 X10*3/uL (0.1-1.2); Monocytes Percent Auto 6.5 % (2-11); Neutrophils Absolute Auto 6.6 X10*3/uL (2.0-8.3); Neutrophils Percent Auto 67.6 % (45-73); Platelet Count 276 X10*3/uL (160-400); Red Blood Count 4.57 X10*6/uL (4.20-5.50); Red Cell Distribution Width 15.9 % (11.0-16.0); White Blood Count 9.8 X10*3/uL (4.8-10.8)
[2021-05-28 11:02] LABS: Alanine Aminotransferase 21 U/L (0-31); Albumin Level 4.1 g/dL (3.5-5.0); Alkaline Phosphatase 136 U/L (39-117); Anion Gap 11 (12-20); Aspartate Amino Transferase 19 U/L (5-31); Bilirubin Total 0.6 mg/dL (0.0-1.0); Blood Urea Nitrogen 15 mg/dL (9-16); Calcium 9.4 mg/dL (8.4-10.2); Carbon Dioxide 29 mmol/L (22-29); Chloride 105 mmol/L (96-108); Cholesterol 193 mg/dL; Estimated Glomerular Filt Rate > 60; Glucose Random 93 mg/dL (60-115); HDL Cholesterol 56 mg/dL; LDL Cholesterol Calculated 122 mg/dl; Sodium 141 mmol/L (135-145); Total Protein 7.4 g/dL (6.5-8.0); Triglycerides 79 mg/dL
[2021-05-28 11:21] LABS: Erythrocyte Sedimentation Rate 38 MM/HR (0-20)
[2021-05-30 13:16] LABS: Anti Nuclear Antibody Screen NEGATIVE (NEGATIVE)
[2021-05-30 14:57] LABS: Antibody to SS-A Antigen <1.0 NEG AI (<1.0 NEG); Antibody to SS-B Antigen <1.0 NEG AI (<1.0 NEG)
== END 2021-05-28 08:38 | disposition home or self-care (01) ==
LOC: HO.LAB 08:37
PROVIDERS: Absent Provider Internal Medicine; PCP Internal Medicine; Visit Provider Nurse Practitioner Family
DX: D64.9 Anemia, unspecified (principal); N28.0 Ischemia and infarction of kidney; R76.8 Other specified abnormal immunological findings in serum; I77.6 Arteritis, unspecified
CPT/HCPCS: 36415; 80053; 80061; 85025; 85652; 86038; 86039; 86235

== ENCOUNTER 2021-07-10 12:01 | Outpatient (REF) | payer OTHER, SELFPAY ==
[2021-07-10 12:21] LABS: MANUAL DIFF FLAG NO
[2021-07-10 12:39] LABS: Basophils Percent Auto 0.2 % (0-2); Eosinophils Absolute Auto 0.1 X10*3/uL (0.0-0.4); Eosinophils Percent Auto 1.2 % (0-4); Hematocrit 38.3 % (37.0-47.0); Hemoglobin 11.5 g/dl (12.0-16.0); Imm Gran Abs Auto 0.04 X10*3/uL (0.00-0.03); Imm Gran Pct Auto 0.4 % (0.0-0.4); Lymphocytes Absolute Auto 2.6 X10*3/uL (1.2-4.9); Lymphocytes Percent Auto 27.2 % (20-40); Mean Corpuscular Hemoglobin 23.9 pg (27.0-33.0); Mean Corpuscular Volume 79.5 fL (80.0-98.0); Mean Platelet Volume 9.5 fL (9.4-12.3); Monocytes Absolute Auto 0.7 X10*3/uL (0.1-1.2); Monocytes Percent Auto 7.1 % (2-11); Neutrophils Percent Auto 63.9 % (45-73); Platelet Count 279 X10*3/uL (160-400); Red Blood Count 4.82 X10*6/uL (4.20-5.50); Red Cell Distribution Width 16.2 % (11.0-16.0); White Blood Count 9.5 X10*3/uL (4.8-10.8)
[2021-07-10 13:16] LABS: Alanine Aminotransferase 21 U/L (0-31); Albumin Level 4.1 g/dL (3.5-5.0); Alkaline Phosphatase 125 U/L (39-117); Anion Gap 14 (12-20); Aspartate Amino Transferase 21 U/L (5-31); Bilirubin Total 0.3 mg/dL (0.0-1.0); Blood Urea Nitrogen 19 mg/dL (9-16); C Reactive Protein 0.11 mg/dL (< or = 0.50); Calcium 9.8 mg/dL (8.4-10.2); Carbon Dioxide 27 mmol/L (22-29); Chloride 102 mmol/L (96-108); Estimated Glomerular Filt Rate > 60; Glucose Random 89 mg/dL (60-115); Magnesium 2.2 mg/dL (1.6-2.6); Potassium 4.3 mmol/L (3.3-5.1); Sodium 139 mmol/L (135-145); Total Protein 7.4 g/dL (6.5-8.0)
[2021-07-10 13:30] LABS: TSH reflex Free T4 2.52 uIU/mL (0.32-4.0)
[2021-07-10 13:49] LABS: Erythrocyte Sedimentation Rate 30 MM/HR (0-20); Folate > 20.0 ng/mL (> or = 4.0); Vitamin B12 334 pg/mL (200-900)
[2021-07-11 12:56] LABS: Complement C3 133 mg/dL (83-193)
== END 2021-07-10 12:02 | disposition home or self-care (01) ==
LOC: HO.LAB 12:01
PROVIDERS: Referring Provider Internal Medicine Medical Oncology; Visit Provider Internal Medicine Rheumatology
DX: D64.9 Anemia, unspecified (principal); M79.10 Myalgia, unspecified site; R53.83 Other fatigue; N28.0 Ischemia and infarction of kidney
CPT/HCPCS: 36415; 80053; 82550; 82607; 82746; 83735; 84443; 85025; 85652; 86140; 86160

== ENCOUNTER 2021-08-17 16:47 | Outpatient (REF) | payer OTHER, SELFPAY ==
[2021-08-17 16:57] LABS: MANUAL DIFF FLAG NO
[2021-08-17 17:07] LABS: Basophils Percent Auto 0.3 % (0-2); Eosinophils Absolute Auto 0.1 X10*3/uL (0.0-0.4); Eosinophils Percent Auto 1.4 % (0-4); Hematocrit 36.2 % (37.0-47.0); Imm Gran Abs Auto 0.02 X10*3/uL (0.00-0.03); Imm Gran Pct Auto 0.2 % (0.0-0.4); Lymphocytes Absolute Auto 3.4 X10*3/uL (1.2-4.9); Mean Corpuscular HGB Conc 30.4 g/dl (31.0-35.0); Mean Corpuscular Hemoglobin 24.4 pg (27.0-33.0); Mean Corpuscular Volume 80.3 fL (80.0-98.0); Mean Platelet Volume 9.4 fL (9.4-12.3); Monocytes Absolute Auto 0.6 X10*3/uL (0.1-1.2); Neutrophils Absolute Auto 6.1 x10*3/uL (2.0-8.3); Neutrophils Percent Auto 59.1 % (45-73); Platelet Count 241 X10*3/uL (160-400); Red Blood Count 4.51 X10*6/uL (4.20-5.50); Red Cell Distribution Width 15.7 % (11.0-16.0); White Blood Count 10.3 X10*3/uL (4.8-10.8)
[2021-08-17 17:27] LABS: Alanine Aminotransferase 20 U/L (0-31); Albumin Level 3.9 g/dL (3.5-5.0); Alkaline Phosphatase 123 U/L (39-117); Anion Gap 11 (12-20); Aspartate Amino Transferase 19 U/L (5-31); Bilirubin Total 0.2 mg/dL (0.0-1.0); Blood Urea Nitrogen 26 mg/dL (9-16); Calcium 9.3 mg/dL (8.4-10.2); Carbon Dioxide 28 mmol/L (22-29); Chloride 103 mmol/L (96-108); Estimated Glomerular Filt Rate > 60; Glucose Fasting 118 mg/dL (60-99); Potassium 4.1 mmol/L (3.3-5.1); Sodium 138 mmol/L (135-145); Total Protein 7.2 g/dL (6.5-8.0)
[2021-08-17 18:35] LABS: Erythrocyte Sedimentation Rate 23 MM/HR (0-20)
[2021-08-20 11:55] LABS: CRP High Sensitivity 0.6 mg/L
== END 2021-08-17 16:48 | disposition home or self-care (01) ==
LOC: HO.LAB 16:47
PROVIDERS: Visit Provider Internal Medicine
DX: D64.9 Anemia, unspecified (principal); I77.3 Arterial fibromuscular dysplasia; M79.10 Myalgia, unspecified site
CPT/HCPCS: 36415; 80053; 85025; 85652; 86141

== ENCOUNTER 2021-09-24 10:07 | Outpatient (REF) | payer OTHER, SELFPAY ==
--- NOTE | ~2021-09-24 | US_ITS ---
EXAMINATION: US RETROPERITONEAL LIMITED (RENAL ONLY) CLINICAL INFORMATION: FMD. COMPARISON: Previous CTA of the abdomen January 2021 and outside angiogram April 2021 TECHNIQUE: Doppler color and reyes-scale evaluation of the kidneys. Doppler color and reyes-scale evaluation of the renal arteries including waveform spectral analysis FINDINGS: RIGHT KIDNEY: 10 x 3.3 x 4 cm (SAG x AP x TRV). The kidney is normal in size, contour, and echogenicity. There is renal cortical thinning or scarring in the upper pole. No calculi or focal parenchymal lesions. No hydronephrosis. LEFT KIDNEY: 9 x 4.6 x 5.1 cm (SAG x AP x TRV). The kidney is normal in size, contour, and echogenicity. There is renal cortical thinning or scarring in the lower pole. No calculi or focal parenchymal lesions. No hydronephrosis. The visualized abdominal aorta is normal in caliber and has normal peak systolic velocity of 82 cm/s. The right renal artery is well visualized. Focal areas of dilatation on angiogram and CTA are not well appreciated by ultrasound. Right renal artery peak systolic velocities measure 162, 121 and 93 cm/s proximally, in the midportion and distally. The right renal artery to aorta ratio is 2. Resistive indices in the interlobar arteries of the right kidney are normal measuring 0.6. The right renal vein is patent. The left renal artery is not as well visualized as the right . Left renal artery velocities measure 186, 231 and 61 cm/s proximally, in the midportion and distally. Left renal artery to aorta ratio is 2.8. No visible left renal artery stenosis is seen. Left renal artery peak systolic velocities may be related to angle of the renal artery and tortuosity. Left renal resistive indices in the interlobar arteries of the left kidney are normal measuring 0.5-0.6. The left renal vein is patent. US/US renal doppler IMPRESSION: Bilateral renal cortical thinning or scarring. Elevated peak systolic velocities in the left renal artery questionable for less than 60% stenosis. No visible stenosis is seen and increased velocities may be related to vessel tortuosity. Normal right renal artery. Focal areas of dilatation appreciated on CTA and angiogram are not appreciated by ultrasound.
== END 2021-09-24 10:08 | disposition home or self-care (01) ==
LOC: HO.US 10:07
PROVIDERS: Visit Provider Internal Medicine Nephrology
DX: N28.0 Ischemia and infarction of kidney (principal)
CPT/HCPCS: 76775; 93975

== ENCOUNTER 2021-10-09 10:01 | Outpatient (REF) | payer OTHER, SELFPAY ==
--- NOTE | ~2021-10-09 | CT_ITS ---
EXAMINATION: CT ANGIOGRAM ABDOMEN AND PELVIS CLINICAL INFORMATION: 172.8 - Aneurysm of the other specified arteries. COMPARISON: CT imaging of the head and neck 05/16/2021, CT angiogram chest 02/24/2021, CT angiogram abdomen and pelvis 02/13/[address] abdomen pelvis 01/30/2021. TECHNIQUE: Multiple axial images were obtained through the abdomen and pelvis following the administration of 80 mL of Omnipaque 350 intravenous contrast. Images were reviewed on a dedicated 3-D workstation. This CT examination was performed using dose optimization techniques as appropriate, variously including the following: *Automated exposure control *Adjustment of mA and/or kV according to patient size (this includes techniques or standardized protocols for targeted exams where dose is matched to indication/reason for exam; i.e. extremities or head) *Use of iterative reconstruction technique DLP: 241 mGy-cm VASCULAR FINDINGS: The distal descending thoracic aorta appears normal. The abdominal aorta appears unremarkable without aneurysm, dissection or significant atherosclerotic changes. The aortic bifurcation is patent. The visualized iliofemoral vessels all appear normal. The celiac and SMA are patent. The HENNA is patent. Again redemonstrated is a splenic artery aneurysm measuring about 1.4 cm. There is a small thrombosed 0.8 cm splenic aneurysm adjacent to this with some rim calcification. There is a single renal artery supplying the right kidney which appears normal. On the left, there is a single patent renal artery seen. Again seen in the left kidney are areas of chronic scarring in the lower pole with loss of cortex. Differential diagnosis remains the same including previous infarct versus remote infection. It is also possible that an accessory lower pole branch that is no longer visualized could have thrombosed long ago. The previously seen new area of cortical devascularization in the upper pole of the left kidney has now evolved to an area of complete scarring. No new areas of renal infarction are seen. NONVASCULAR FINDINGS: LUNG BASES: The visualized lung bases are unremarkable. LIVER, GALLBLADDER, AND BILIARY TREE: The liver is normal in size, shape, and attenuation. No focal hepatic lesion or biliary ductal dilatation is present. The gallbladder is unremarkable with no evidence of radiopaque gallstones, gallbladder wall thickening, or obvious pericholecystic inflammatory changes. PANCREAS: Unremarkable. SPLEEN: Unremarkable. A few punctate splenic granulomas are present. ADRENAL GLANDS: Unremarkable. KIDNEYS AND URETERS: Please see description above regarding renal infarcts in left kidney. Some old chronic infarcts with cortical loss are noted in the right kidney near the upper pole laterally. No hydronephrosis is seen. No renal masses are seen. The ureters appear normal. No renal calculi are seen. BLADDER: Unremarkable. GASTROINTESTINAL TRACT: Wall thickening in the stomach is again seen most likely secondary to underdistention. The small and large bowel are unremarkable. The appendix is unremarkable. ABDOMINAL WALL: No significant hernia is appreciated. LYMPH NODES: No retroperitoneal lymphadenopathy is seen. PELVIC VISCERA: An anteverted uterus is present. An abnormal adnexal mass or free intraperitoneal fluid is not present. OSSEOUS STRUCTURES: Degenerative changes noted in the lower thoracic spine and in the lumbar spine at L5-S1. CT/CT angio abdomen pelvis IMPRESSION: 1. There is evidence of infarctions with chronic scarring in both kidneys, left greater than right. The area of this infarction that was evolving in the left upper pole previously now appears complete with an area of scarring remaining. The etiology for these infarcts is not clear. Other imaging studies have failed to show evidence of vasculitis. Please correlate with serologic workup as well. 2. Splenic artery aneurysms, one thrombosed. These appear stable. 3. Other findings, as described above.
[2021-10-09 11:50] LABS: MANUAL DIFF FLAG NO
[2021-10-09 11:58] LABS: Basophils Percent Auto 0.2 % (0-2); Eosinophils Absolute Auto 0.1 X10*3/uL (0.0-0.4); Hematocrit 36.7 % (37.0-47.0); Hemoglobin 11.4 g/dl (12.0-16.0); Imm Gran Abs Auto 0.02 X10*3/uL (0.00-0.03); Imm Gran Pct Auto 0.2 % (0.0-0.4); Lymphocytes Absolute Auto 2.8 X10*3/uL (1.2-4.9); Lymphocytes Percent Auto 33.6 % (20-40); Mean Corpuscular HGB Conc 31.1 g/dl (31.0-35.0); Mean Corpuscular Hemoglobin 24.7 pg (27.0-33.0); Mean Corpuscular Volume 79.4 fL (80.0-98.0); Mean Platelet Volume 9.8 fL (9.4-12.3); Monocytes Absolute Auto 0.6 X10*3/uL (0.1-1.2); Monocytes Percent Auto 6.9 % (2-11); Neutrophils Absolute Auto 4.9 x10*3/uL (2.0-8.3); Neutrophils Percent Auto 58.1 % (45-73); Platelet Count 245 X10*3/uL (160-400); Red Blood Count 4.62 X10*6/uL (4.20-5.50); Red Cell Distribution Width 14.6 % (11.0-16.0); White Blood Count 8.4 X10*3/uL (4.8-10.8)
[2021-10-09 12:11] LABS: Alanine Aminotransferase 16 U/L (0-31); Albumin Level 3.9 g/dL (3.5-5.0); Alkaline Phosphatase 110 U/L (39-117); Anion Gap 11 (12-20); Aspartate Amino Transferase 18 U/L (5-31); Bilirubin Total 0.6 mg/dL (0.0-1.0); Blood Urea Nitrogen 21 mg/dL (9-16); Calcium 9.4 mg/dL (8.4-10.2); Carbon Dioxide 29 mmol/L (22-29); Chloride 105 mmol/L (96-108); Estimated Glomerular Filt Rate > 60; Glucose Random 95 mg/dL (60-115); Potassium 4.1 mmol/L (3.3-5.1); Sodium 141 mmol/L (135-145); Total Protein 6.9 g/dL (6.5-8.0)
[2021-10-09 12:29] LABS: Ferritin 25 ng/mL (10-250)
[2021-10-09 12:34] LABS: Erythrocyte Sedimentation Rate 20 MM/HR (0-20)
[2021-10-09] MEDS: iohexoL 350 MG/ML 100 ML INFUS..BTL IV (12:49)
[2021-10-10 13:52] LABS: Vitamin B12 321 pg/mL (200-900)
== END 2021-10-09 10:02 | disposition home or self-care (01) ==
LOC: HO.CT 10:01
PROVIDERS: Internal Medicine; PCP Internal Medicine; Visit Provider Internal Medicine
DX: I72.8 Aneurysm of other specified arteries (principal); I10 Essential (primary) hypertension
CPT/HCPCS: 36415; 74174; 80053; 82607; 82728; 85025; 85652; Q9967

== ENCOUNTER 2021-11-09 08:00 | Outpatient (RCR) | payer OTHER, SELFPAY ==
[2021-11-02 14:10] VITALS: BP 147/75; PULSE 68
--- NOTE | 2021-12-13 08:15 | MHC.PT.EP ---
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 She reports of having sudden onset of symptoms over vertigo this morning. She describes her symptoms as room spinning which is present with rolling in the bed, looking up or down and supine to sit, she also has nausea. On PT examination she was positive in B roll test. Due to this she does her ADLS very slowly. 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 She would benefit from skilled PT to address the aforementioned impairments and improve tolerance to functional activities. Frequency and Duration: The patient will be seen 2/week for 4 weeks Short Term Goals: Patient to be educated on symptoms and indications to return to therapy when needed min 4 weeks. Pt will be negative for nystagmus or reports of vertigo in all diagnostic positions bilaterally to resolution of BPPV in 4 weeks. Chcf Goals: Patient to be able to functionally move in all planes and directions without provocation of dizziness to show return to PLOF in 6 weeks. Treatment Plan: Modalities to reduce pain, spasms and effusion. Manual therapy to restore motion and function. Therapeutic exercise to improve strength and flexibility. Neuromuscular re-education for posture and balance. Therapeutic activities to return to functional activities of daily living. Electronically signed by: Mary Field, PT DPT Please sign and return to therapist. Thank you for your referral.
--- NOTE | 2021-12-13 08:15 | MHC.PT.DC ---
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 She has therefore been d/c from PT. Electronically signed by: Mary Field PT DPT Please sign and return to therapist. Thank you for your referral.
== END 2021-12-13 08:15 | disposition home or self-care (01) ==
LOC: HO.PT 08:00
PROVIDERS: PCP Internal Medicine; Visit Provider Internal Medicine
DX: R42 Dizziness and giddiness (principal)
CPT/HCPCS: 95992; 97112; 97161

== ENCOUNTER 2022-02-04 13:45 | Outpatient (REF) | payer OTHER, SELFPAY ==
[2022-02-04 16:12] LABS: MANUAL DIFF FLAG NO
[2022-02-04 16:30] LABS: Basophils Percent Auto 0.2 % (0-2); Eosinophils Absolute Auto 0.1 X10*3/uL (0.0-0.4); Eosinophils Percent Auto 0.9 % (0-4); Hematocrit 36.5 % (37.0-47.0); Hemoglobin 11.2 g/dl (12.0-16.0); Imm Gran Abs Auto 0.03 X10*3/uL (0.00-0.03); Imm Gran Pct Auto 0.3 % (0.0-0.4); Lymphocytes Percent Auto 31.9 % (20-40); Mean Corpuscular HGB Conc 30.7 g/dl (31.0-35.0); Mean Corpuscular Hemoglobin 24.7 pg (27.0-33.0); Mean Corpuscular Volume 80.4 fL (80.0-98.0); Mean Platelet Volume 9.6 fL (9.4-12.3); Monocytes Absolute Auto 0.5 X10*3/uL (0.1-1.2); Monocytes Percent Auto 4.9 % (2-11); Neutrophils Absolute Auto 5.7 x10*3/uL (2.0-8.3); Neutrophils Percent Auto 61.8 % (45-73); Platelet Count 216 X10*3/uL (160-400); Red Blood Count 4.54 X10*6/uL (4.20-5.50); Red Cell Distribution Width 14.6 % (11.0-16.0); White Blood Count 9.3 X10*3/uL (4.8-10.8)
[2022-02-04 16:30] LABS: Appearance Urine CLEAR; Color Urine YELLOW; Glucose Urine UA NEG (NEG); Leukocyte Esterase Urine 1+ (NEG); Nitrite Urine NEG (NEG); PH 5.5 (5.0-8.0); Specific Gravity - Urine 1.025 (1.005-1.025); Urine Blood TRACE (NEG); Urine Ketones NEG (NEG); Urine Protein NEG (NEG-TRACE)
[2022-02-04 16:37] LABS: Squamous Epithelial Cell Urine 1+ /LPF
[2022-02-04 16:38] LABS: Bacteria Urine TRACE /LPF
[2022-02-04 16:49] LABS: Alanine Aminotransferase 18 U/L (0-31); Albumin Level 3.9 g/dL (3.5-5.0); Alkaline Phosphatase 105 U/L (39-117); Anion Gap 15 (12-20); Aspartate Amino Transferase 16 U/L (5-31); Bilirubin Total 0.3 mg/dL (0.0-1.0); Blood Urea Nitrogen 19 mg/dL (9-16); C Reactive Protein 0.06 mg/dL (< or = 0.50); Calcium 9.2 mg/dL (8.4-10.2); Carbon Dioxide 27 mmol/L (22-29); Chloride 103 mmol/L (96-108); Estimated Glomerular Filt Rate > 60; Glucose Random 170 mg/dL (60-115); Potassium 3.7 mmol/L (3.3-5.1); Sodium 141 mmol/L (135-145); Total Protein 6.8 g/dL (6.5-8.0)
[2022-02-04 17:22] LABS: Erythrocyte Sedimentation Rate 14 MM/HR (0-20)
[2022-02-04 17:37] LABS: Creatinine Urine 139.97 mg/dL
[2022-02-04 18:29] LABS: Iron 58 mcg/dL (30-160); Percent Iron Saturation 17 % (15-50); Total Iron Binding Capacity 348 mcg/dL (228-428); Unsaturated Iron Binding 290 ug/dL
[2022-02-04 18:49] LABS: Ferritin 26 ng/mL (10-250); Vitamin D 25-OH Total 31.9 ng/mL (>30)
[2022-02-04 19:01] LABS: Vitamin B12 243 pg/mL (200-900)
[2022-02-05 10:47] LABS: Estimated Average Glucose 117 mg/dL; Hemoglobin A1c % 5.7 %
[2022-02-05 16:27] LABS: Anti DNA DS Antibody <1 IU/mL; SM/Ribonucleoprotein Ab <1.0 NEG AI (<1.0 NEG); Smith Protein <1.0 NEG AI (<1.0 NEG)
[2022-02-05 18:21] LABS: Complement C3 132 mg/dL (83-193)
[2022-02-07 07:12] LABS: Neutrophil Cyto Ab Screen NEGATIVE (NEGATIVE)
[2022-02-12 01:37] LABS: Intrinsic Factor Antibodies Negative (Negative)
== END 2022-02-04 13:46 | disposition home or self-care (01) ==
LOC: HO.LAB 13:45
PROVIDERS: Internal Medicine Medical Oncology; PCP Internal Medicine; Visit Provider Internal Medicine Rheumatology
DX: R76.8 Other specified abnormal immunological findings in serum (principal); I77.3 Arterial fibromuscular dysplasia; M79.10 Myalgia, unspecified site; D64.9 Anemia, unspecified; R73.9 Hyperglycemia, unspecified
CPT/HCPCS: 36415; 80053; 81001; 82043; 82306; 82550; 82607; 82728; 83036; 83540; 85025; 85652; 86036; 86037; 86140; 86160; 86225; 86235; 86340; 87086

== ENCOUNTER 2022-02-08 08:27 | Outpatient (REF) | payer OTHER, SELFPAY ==
[2022-02-08 11:06] LABS: Appearance Urine CLEAR; Color Urine YELLOW; Glucose Urine UA NEG (NEG); Leukocyte Esterase Urine NEG (NEG); Nitrite Urine NEG (NEG); Specific Gravity - Urine 1.025 (1.005-1.025); Urine Blood TRACE (NEG); Urine Ketones NEG (NEG); Urine Protein NEG (NEG-TRACE)
[2022-02-08 11:26] LABS: Mucus Urine 1+ /LPF; Squamous Epithelial Cell Urine TRACE /LPF; WBC Urine 0 /HPF (0-4)
[2022-02-08 12:22] LABS: Glucose Fasting 97 mg/dL (60-99)
[2022-02-08 12:33] LABS: Cholesterol 212 mg/dL; HDL Cholesterol 52 mg/dL; LDL Cholesterol Calculated 141 mg/dl; Triglycerides 96 mg/dL
[2022-02-08 13:17] LABS: Creatinine Urine 160.19 mg/dL; Microalbum/Creatinine Ratio Ur 5.6 ug/mg cr
[2022-02-10 02:27] LABS: LDL Cholesterol Direct 140 mg/dL (<100)
[2022-02-11 11:42] LABS: Haptoglobin 177 mg/dL (43-212)
== END 2022-02-08 08:28 | disposition home or self-care (01) ==
LOC: HO.LAB 08:27
PROVIDERS: Internal Medicine; Internal Medicine Medical Oncology; Internal Medicine Rheumatology; Visit Provider Internal Medicine
DX: N28.0 Ischemia and infarction of kidney (principal); R76.8 Other specified abnormal immunological findings in serum; D64.9 Anemia, unspecified
CPT/HCPCS: 36415; 80061; 81001; 81003; 82043; 82947; 83010; 83540; 83721

== ENCOUNTER 2022-02-11 16:35 | Outpatient (REF) | payer OTHER, SELFPAY ==
--- NOTE | ~2022-02-11 | MR_ITS ---
EXAMINATION: MRI BRAIN WITHOUT CONTRAST CLINICAL INFORMATION: Multiple sclerosis. COMPARISON: CT head angiogram of the head and neck 05/16/2021. TECHNIQUE: Multiplanar MR imaging of the brain was performed without contrast. FINDINGS: There are scattered nonspecific foci of T2 FLAIR signal hyperintensity involving the supratentorial white matter. No clear evidence of infratentorial white matter disease. There is no intracranial mass effect or midline shift. No abnormal extra-axial collection. Lateral and third ventricles are normal. No hydrocephalus. Midline structures including the cervicomedullary junction are normal. No acute territorial infarct. No pathological magnetic susceptibility artifact. Intracranial vascular flow voids are maintained. There is no mastoid middle ear effusion. No active paranasal sinus disease. MR/MR head/brain wo con IMPRESSION: There are a few scattered nonspecific signal changes involving the supratentorial white matter. Otherwise unremarkable brain MRI.
== END 2022-02-11 16:36 | disposition home or self-care (01) ==
LOC: HO.MRI 16:35
PROVIDERS: Visit Provider Psychiatry & Neurology Neurology
DX: G35 Multiple sclerosis (principal)
CPT/HCPCS: 70551

== ENCOUNTER 2022-02-15 08:32 | Outpatient (REF) | payer OTHER, SELFPAY ==
[2022-02-15 09:47] LABS: Glucose Fasting 97 mg/dL (60-99)
[2022-02-15 10:12] LABS: TSH reflex Free T4 2.09 uIU/mL (0.32-4.0)
[2022-02-15 19:53] LABS: Alanine Aminotransferase 16 U/L (0-31); Albumin Level 3.9 g/dL (3.5-5.0); Alkaline Phosphatase 107 U/L (39-117); Anion Gap 10 (12-20); Aspartate Amino Transferase 17 U/L (5-31); Bilirubin Total 0.5 mg/dL (0.0-1.0); Blood Urea Nitrogen 18 mg/dL (9-16); Calcium 9.1 mg/dL (8.4-10.2); Carbon Dioxide 27 mmol/L (22-29); Chloride 105 mmol/L (96-108); Estimated Glomerular Filt Rate 56; Glucose Random 96 mg/dL (60-115); Potassium 4.2 mmol/L (3.3-5.1); Sodium 138 mmol/L (135-145); Total Protein 6.8 g/dL (6.5-8.0)
[2022-02-15 20:15] LABS: T4 Thyroxine 7.4 ug/dL (4.5-12.0)
[2022-02-18 13:26] LABS: SARS COV2 IgG NEGATIVE
== END 2022-02-15 08:33 | disposition home or self-care (01) ==
LOC: HO.LAB 08:32
PROVIDERS: Absent Provider Internal Medicine; PCP Internal Medicine; Visit Provider Internal Medicine
DX: Z20.822 Contact with and (suspected) exposure to COVID-19 (principal); R41.89 Other symptoms and signs involving cognitive functions and awareness; D64.9 Anemia, unspecified; R53.83 Other fatigue
CPT/HCPCS: 36415; 80053; 82947; 84436; 84443; 86769

== ENCOUNTER 2022-03-01 08:35 | Outpatient (REF) | payer OTHER, SELFPAY ==
--- NOTE | ~2022-03-01 | US_ITS ---
EXAMINATION: US VENOUS WITH DOPPLER UPPER EXTREMITY, LEFT CLINICAL INFORMATION: Pain and swelling left upper extremity. COMPARISON: None TECHNIQUE: Ultrasound of the upper extremity is performed using compression sonography and color and pulse Doppler flow with assessment of augmentation of flow. There is also imaging and Doppler assessment of the jugular and subclavian veins. Spectral analysis with color-flow imaging is performed. FINDINGS: Respiratory variation, normal compression, and augmented flow are noted throughout the upper extremity including the axillary, brachial, cubital, and radial and ulnar veins. There is normal flow in the internal jugular and subclavian veins. There is no visible deep or superficial thrombophlebitis. There is a hypoechoic soft tissue mass just inferior to antecubital fossa with no vascular flow. It measures approximately 1.1 x 1.5 x 0.9 cm and may represent a small hematoma. Patient did have recent blood drawn from the same upper extremity 5-7 days ago. If the patient's symptoms progress, a followup ultrasound in 5 -7 days might be of value to exclude proximal propagation from a nonvisualized distal arm vein. US/US venous duplex UE LT IMPRESSION: No DVT demonstrated in the left upper extremity. Soft tissue hypoechoic nonvascular mass-like area in the antecubital fossa likely a small hematoma. There may be mass effect on the median nerve.
== END 2022-03-01 08:36 | disposition home or self-care (01) ==
LOC: HO.US 08:35
PROVIDERS: PCP Internal Medicine; Visit Provider Nurse Practitioner Family
DX: M79.602 Pain in left arm (principal); R60.9 Edema, unspecified
CPT/HCPCS: 93971

== ENCOUNTER 2022-05-31 09:00 | Outpatient (REF) | payer OTHER, SELFPAY ==
[2022-05-31 10:55] LABS: MANUAL DIFF FLAG NO
[2022-05-31 10:56] LABS: Basophils Absolute Auto 0.1 X10*3/uL (0.0-0.2); Basophils Percent Auto 0.7 % (0-2); Eosinophils Absolute Auto 0.1 X10*3/uL (0.0-0.4); Hematocrit 40.7 % (37.0-47.0); Hemoglobin 12.5 g/dl (12.0-16.0); Imm Gran Abs Auto 0.02 X10*3/uL (0.00-0.03); Imm Gran Pct Auto 0.2 % (0.0-0.4); Lymphocytes Absolute Auto 2.2 X10*3/uL (1.2-4.9); Lymphocytes Percent Auto 26.6 % (20-40); Mean Corpuscular HGB Conc 30.7 g/dl (31.0-35.0); Mean Corpuscular Hemoglobin 24.8 pg (27.0-33.0); Mean Corpuscular Volume 80.6 fL (80.0-98.0); Mean Platelet Volume 10.1 fL (9.4-12.3); Monocytes Absolute Auto 0.5 X10*3/uL (0.1-1.2); Monocytes Percent Auto 6.1 % (2-11); Neutrophils Absolute Auto 5.3 x10*3/uL (2.0-8.3); Neutrophils Percent Auto 65.4 % (45-73); Platelet Count 274 X10*3/uL (160-400); Red Blood Count 5.05 X10*6/uL (4.20-5.50); White Blood Count 8.1 X10*3/uL (4.8-10.8)
[2022-05-31 11:18] LABS: Alanine Aminotransferase 16 U/L (0-31); Albumin Level 4.3 g/dL (3.5-5.0); Alkaline Phosphatase 112 U/L (39-117); Anion Gap 18 (12-20); Aspartate Amino Transferase 19 U/L (5-31); Bilirubin Total 0.5 mg/dL (0.0-1.0); Blood Urea Nitrogen 20 mg/dL (9-16); C Reactive Protein 0.07 mg/dL (< or = 0.50); Calcium 9.7 mg/dL (8.4-10.2); Carbon Dioxide 24 mmol/L (22-29); Chloride 102 mmol/L (96-108); Cholesterol 230 mg/dL; Estimated Glomerular Filt Rate 56; Glucose Fasting 107 mg/dL (60-99); HDL Cholesterol 49 mg/dL; LDL Cholesterol Calculated 158 mg/dl; Potassium 4.4 mmol/L (3.3-5.1); Sodium 140 mmol/L (135-145); Total Protein 7.3 g/dL (6.5-8.0); Triglycerides 119 mg/dL
[2022-05-31 11:35] LABS: Erythrocyte Sedimentation Rate 20 MM/HR (0-20)
[2022-05-31 11:41] LABS: Thyroid Stimulating Hormone 1.81 uIU/mL (0.32-4.0)
[2022-06-04 13:52] LABS: Anti DNA DS Antibody <1 IU/mL; SM/Ribonucleoprotein Ab <1.0 NEG AI (<1.0 NEG); Smith Protein <1.0 NEG AI (<1.0 NEG)
[2022-06-04 19:42] LABS: Anti Nuclear Antibody Pattern Nuclear, Homogeneous; Anti Nuclear Antibody Screen POSITIVE (NEGATIVE); Anti Nuclear Antibody Titer 1:40 titer
== END 2022-05-31 09:01 | disposition home or self-care (01) ==
LOC: HO.10HDL 09:00
PROVIDERS: Internal Medicine Rheumatology; Visit Provider Nurse Practitioner Family
DX: R76.8 Other specified abnormal immunological findings in serum (principal); D64.9 Anemia, unspecified; R53.83 Other fatigue; N28.0 Ischemia and infarction of kidney
CPT/HCPCS: 36415; 80053; 80061; 84443; 85025; 85652; 86038; 86039; 86140; 86225; 86235

== ENCOUNTER 2022-06-21 12:18 | Outpatient (REF) | payer OTHER, SELFPAY ==
--- NOTE | ~2022-06-21 | MM_ITS ---
EXAMINATION: MM SCREENING DIGITAL BREAST TOMOSYNTHESIS, BILATERAL CLINICAL INFORMATION: Screening. Asymptomatic. Previous left breast biopsy demonstrating hyperplasia. The lifetime risk of breast cancer based on the Tyrer-Cuzick Model is 6.7%. COMPARISON: Mammography: April 25, 2021 and studies dating back to October 08, 2010 TECHNIQUE: Digital breast tomosynthesis is performed in both the craniocaudal and mediolateral oblique views along with computer-aided detection (CAD). Synthesized 2D images are generated from the tomosynthesis. FINDINGS: The breasts are heterogeneously dense, which may obscure small masses (ACR BI-RADS breast composition Category c). There are no new significant masses, abnormal calcifications, or other abnormalities. MM/MM tomosynthesis screening BI IMPRESSION: No significant changes ASSESSMENT: BI-RADS 1: Negative RECOMMENDATION: Routine annual mammography screening. This patient's information was entered into a reminder system with a target due date for their next mammogram.
== END 2022-06-21 12:19 | disposition home or self-care (01) ==
LOC: HO.MAMMO 12:18
PROVIDERS: PCP Internal Medicine; Visit Provider Internal Medicine
DX: Z12.31 Encounter for screening mammogram for malignant neoplasm of breast (principal)
CPT/HCPCS: 77063; 77067

== ENCOUNTER 2022-06-21 12:30 | Outpatient (RCR) | payer OTHER, SELFPAY | END 2022-07-29 13:24 | disposition home or self-care (01) | LOC: HO.PT 12:30 | PROVIDERS: Visit Provider Internal Medicine | DX: R42 Dizziness and giddiness (principal) | CPT/HCPCS: 95992; 97112; 97161 ==

== ENCOUNTER 2022-06-22 10:52 | Outpatient (REF) | payer OTHER, SELFPAY ==
[2022-06-22 11:38] LABS: COVID-19 Test Negative (Negative); IDNOW Serial# 16C4AD1C
== END 2022-06-22 10:53 | disposition home or self-care (01) ==
LOC: HO.LAB 10:52
PROVIDERS: Visit Provider Internal Medicine
DX: Z20.822 Contact with and (suspected) exposure to COVID-19 (principal); J06.9 Acute upper respiratory infection, unspecified
CPT/HCPCS: 87635

== ENCOUNTER 2022-09-02 12:22 | Outpatient (REF) | payer OTHER, SELFPAY ==
[2022-09-02 13:13] LABS: Influenza A PCR NEGATIVE (Negative); Influenza B PCR NEGATIVE (Negative); Resp Syncy Virus RNA Qual PCR NEGATIVE (Negative); SARS COV2 PCR INHOUSE NEGATIVE (Negative)
== END 2022-09-02 12:23 | disposition home or self-care (01) ==
LOC: HO.LAB 12:22
PROVIDERS: PCP Internal Medicine; Visit Provider Physician Assistant Medical
DX: Z20.822 Contact with and (suspected) exposure to COVID-19 (principal); R68.89 Other general symptoms and signs
CPT/HCPCS: 0241U

== ENCOUNTER 2022-09-26 11:05 | Outpatient (REF) | payer OTHER, SELFPAY ==
[2022-09-26 11:48] LABS: Influenza A PCR NEGATIVE (Negative); Influenza B PCR NEGATIVE (Negative); Resp Syncy Virus RNA Qual PCR NEGATIVE (Negative); SARS COV2 PCR INHOUSE POSITIVE (Negative)
== END 2022-09-26 11:06 | disposition home or self-care (01) ==
LOC: HO.LNP 11:05
PROVIDERS: Visit Provider Internal Medicine
DX: Z20.822 Contact with and (suspected) exposure to COVID-19 (principal)
CPT/HCPCS: 0241U

== ENCOUNTER 2022-09-26 14:06 | Outpatient (REF) | payer OTHER, SELFPAY ==
--- NOTE | ~2022-09-26 | XR_ITS ---
EXAMINATION: XR CHEST CLINICAL INFORMATION: Cough COMPARISON: 01/30/2021 TECHNIQUE: 2 views of the chest were obtained. FINDINGS: The lungs are well expanded. There is no focal consolidation, edema, or effusion. No pneumothorax. The cardiomediastinal silhouette is within normal limits. No acute osseous abnormality. XR/XR chest 2V IMPRESSION: Clear lungs.
== END 2022-09-26 14:07 | disposition home or self-care (01) ==
LOC: HO.XRAY 14:06
PROVIDERS: PCP Internal Medicine; Visit Provider Internal Medicine Medical Oncology
DX: R05.9 Cough, unspecified (principal)
CPT/HCPCS: 71046

== ENCOUNTER 2022-10-05 09:15 | Outpatient (REF) | payer OTHER, SELFPAY ==
[2022-10-05 10:28] LABS: Influenza A PCR NEGATIVE (Negative); Influenza B PCR NEGATIVE (Negative); Resp Syncy Virus RNA Qual PCR NEGATIVE (Negative); SARS COV2 PCR INHOUSE POSITIVE (Negative)
== END 2022-10-05 09:16 | disposition home or self-care (01) ==
LOC: HO.LAB 09:15
PROVIDERS: Visit Provider Internal Medicine Medical Oncology
DX: Z20.822 Contact with and (suspected) exposure to COVID-19 (principal)
CPT/HCPCS: 0241U

== ENCOUNTER → 2022-10-07 13:33 | Outpatient (BNVA) | payer OTHER, SELFPAY | PROVIDERS: PCP Internal Medicine; Visit Provider Internal Medicine | DX: Z13.89 Encounter for screening for other disorder (principal) ==

== ENCOUNTER 2022-10-22 10:56 | Outpatient (REF) | payer OTHER, SELFPAY ==
[2022-10-22 11:10] LABS: MANUAL DIFF FLAG NO
[2022-10-22 11:46] LABS: Basophils Percent Auto 0.3 % (0-2); Eosinophils Percent Auto 0.4 % (0-4); Hematocrit 39.3 % (37.0-47.0); Imm Gran Abs Auto 0.04 X10*3/uL (0.00-0.03); Imm Gran Pct Auto 0.4 % (0.0-0.4); Lymphocytes Absolute Auto 3.1 X10*3/uL (1.2-4.9); Lymphocytes Percent Auto 32.7 % (20-40); Mean Corpuscular HGB Conc 30.5 g/dl (31.0-35.0); Mean Corpuscular Hemoglobin 24.7 pg (27.0-33.0); Mean Platelet Volume 10.5 fL (9.4-12.3); Monocytes Absolute Auto 0.6 X10*3/uL (0.1-1.2); Monocytes Percent Auto 6.5 % (2-11); Neutrophils Absolute Auto 5.6 x10*3/uL (2.0-8.3); Neutrophils Percent Auto 59.7 % (45-73); Platelet Count 239 X10*3/uL (160-400); Red Blood Count 4.85 X10*6/uL (4.20-5.50); Red Cell Distribution Width 14.8 % (11.0-16.0); White Blood Count 9.5 X10*3/uL (4.8-10.8)
[2022-10-22 12:25] LABS: Erythrocyte Sedimentation Rate 28 MM/HR (0-20)
[2022-10-22 12:36] LABS: Alanine Aminotransferase 13 U/L (0-31); Albumin Level 4.2 g/dL (3.5-5.0); Alkaline Phosphatase 105 U/L (39-117); Anion Gap 13 (12-20); Aspartate Amino Transferase 16 U/L (5-31); Bilirubin Total 0.8 mg/dL (0.0-1.0); Blood Urea Nitrogen 15 mg/dL (9-16); Calcium 9.5 mg/dL (8.4-10.2); Carbon Dioxide 26 mmol/L (22-29); Chloride 103 mmol/L (96-108); Cholesterol 229 mg/dL; Estimated Glomerular Filt Rate > 60; Glucose Fasting 101 mg/dL (60-99); HDL Cholesterol 49 mg/dL; Iron 85 mcg/dL (30-160); LDL Cholesterol Calculated 160 mg/dl; Percent Iron Saturation 26 % (15-50); Potassium 4.1 mmol/L (3.3-5.1); Sodium 138 mmol/L (135-145); Total Iron Binding Capacity 321 mcg/dL (228-428); Total Protein 7.1 g/dL (6.5-8.0); Triglycerides 102 mg/dL; Unsaturated Iron Binding 236 ug/dL
[2022-10-22 12:52] LABS: Ferritin 34 ng/mL (10-250); Thyroid Stimulating Hormone 1.88 uIU/mL (0.32-4.0)
[2022-10-22 15:56] LABS: Vitamin B12 405 pg/mL (200-900); Vitamin D 25-OH Total 39.1 ng/mL (>30)
== END 2022-10-22 10:57 | disposition home or self-care (01) ==
LOC: HO.LAB 10:56
PROVIDERS: PCP Internal Medicine; Visit Provider Internal Medicine Medical Oncology
DX: I10 Essential (primary) hypertension (principal); D64.9 Anemia, unspecified; N28.0 Ischemia and infarction of kidney; E78.00 Pure hypercholesterolemia, unspecified; M79.10 Myalgia, unspecified site; E78.5 Hyperlipidemia, unspecified
CPT/HCPCS: 36415; 80053; 80061; 82306; 82607; 82728; 83540; 84443; 85025; 85652

== ENCOUNTER 2022-10-23 13:41 | Outpatient (REF) | payer OTHER, SELFPAY ==
--- NOTE | ~2022-10-23 | CT_ITS ---
EXAMINATION: CT HEAD WITH CONTRAST CLINICAL INFORMATION: Headache COMPARISON: MRI of the brain without contrast 02/11/2022 TECHNIQUE: Contiguous axial imaging was performed from the skull base to vertex following the administration of 85 mL of Omnipaque [address] examination was performed using dose optimization techniques as appropriate, variously including the following: *Automated exposure control *Adjustment of mA and/or kV according to patient size (this includes techniques or standardized protocols for targeted exams where dose is matched to indication/reason for exam; i.e. extremities or head) *Use of iterative reconstruction technique DLP: 1015 mGy-cm FINDINGS: No acute osseous or soft tissue abnormality. The mastoid air cells and visualized portions of the paranasal sinuses are well aerated. There is no evidence of acute intracranial hemorrhage or territorial infarction. No abnormal mass effect or midline shift is seen. Hammond to white matter differentiation is well preserved. No extra-axial fluid collections are identified. No abnormal intracranial enhancement. No hydrocephalus. No significant volume loss. There is no abnormal attenuation within the brain parenchyma. CT/CT head/brain w IV con IMPRESSION: No acute intracranial pathology.
--- NOTE | ~2022-10-23 | CT_ITS ---
EXAMINATION: CTA CHEST, ABDOMEN AND PELVIS CLINICAL INFORMATION: Reason for Exam I77.3 - Arterial fibromuscular dysplasia COMPARISON: Prior CT angiogram of the abdomen 10/09/[address] angiogram of the chest 03/26/2021. TECHNIQUE: After noncontrast timing run, volumetric imaging was performed from the thoracic inlet through the pubic symphysis following administration of 85 mL of Omnipaque 350. Sagittal and coronal reformatted images were obtained on the technologist's workstation. Additional 2-D coronal and sagittal reformatted images and axial 3-D maximum intensity projection MIP images are generated on the CT workstation. This CT examination was performed using dose optimization techniques as appropriate, variously including the following: *Automated exposure control *Adjustment of mA and/or kV according to patient size (this includes techniques or standardized protocols for targeted exams where dose is matched to indication/reason for exam; i.e. extremities or head) *Use of iterative reconstruction technique DLP: 249.00 mGy-cm VASCULAR FINDINGS: The thoracic aorta appears normal without evidence of aneurysm dissection or intramural hematoma. Three-vessel branching pattern of the aortic arch is seen with widely patent great vessels. No evidence of FMD is seen in the great vessels of the neck. A tricuspid aortic valve is seen. No significant coronary calcification is detected. Although not carried out for evaluation of the pulmonary arteries or pulmonary veins, they're well seen and no abnormality is detected. No central or segmental pulmonary emboli are seen. The abdominal aorta and iliofemoral vessels all appear unremarkable without evidence of arteritis or FMD. The celiac SMA and HENNA are all patent. Again noted is a splenic artery aneurysm measuring about 1.4 cm (8:557), unchanged in size over the past year. There is an adjacent thrombosed smaller 0.8 cm aneurysm seen that is unchanged (8:556). Again seen is a single renal artery on the right which demonstrates some subtle beading (see selby image). Although not mentioned at the time of the prior study, appearances are quite similar. There are some areas of infarction with cortical loss in the right kidney (8:684). There is a single renal artery present on the left that demonstrates some extremely subtle beading as well (see selby images). Infarction of the lower pole with scarring and cortical loss is again noted with similar differential as described at the time of the prior exam, including vascular insult or remote infection (favor former). A small infarct with scar is noted at the upper pole of the left kidney as well as seen previously. NONVASCULAR FINDINGS: CHEST: LUNG: There is a single 3 mm ground-glass nodule present in the right middle lobe (8:315) similar to 03/26/2021 (prior 7:290). Lungs are otherwise clear without worrisome focal opacities or nodules. MEDIASTINUM: The mediastinum is unremarkable. Some small calcified infrahilar/subcarinal lymph nodes are seen on the right and are unchanged. No hilar or mediastinal lymphadenopathy. PERICARDIUM/PLEURA: No significant effusion. No pleural mass or thickening. CHEST WALL/AXILLA: Unremarkable. ABDOMEN/PELVIS: PERITONEAL SPACE: No significant free air or free fluid identified. LIVER, GALLBLADDER, BILIARY TREE: The liver is normal in size, shape, and attenuation. No focal hepatic lesion or biliary ductal dilatation is present. The gallbladder is unremarkable with no evidence of radiopaque gallstones, gallbladder wall thickening, or obvious pericholecystic inflammatory changes. PANCREAS: Unremarkable. SPLEEN: Unremarkable. ADRENAL GLANDS: Unremarkable. KIDNEYS AND URETERS: Both kidneys demonstrate areas of cortical scarring presumably secondary to either old infarcts are old infection, right greater than left (for example see 8:688, which demonstrates areas of scarring bilaterally). No worrisome renal masses. No nephrocalcinosis. No hydronephrosis. BLADDER: Unremarkable. GASTROINTESTINAL TRACT: The small and large bowel are unremarkable. The appendix is unremarkable. ABDOMINAL WALL: No significant hernia is appreciated. LYMPH NODES: No lymphadenopathy. VASCULAR: The aorta appears normal. The IVC appears unremarkable. PELVIC VISCERA: Unremarkable. OSSEUS STRUCTURES: Mild degenerative changes are noted in the spine most marked at L5-S1. No bony destructive lesions are seen. CT/CT angio abdomen pelvis IMPRESSION: 1. Subtle beading of renal arteries is present as described above. This is consistent with fibromuscular dysplasia. 2. Stable renal infarcts are present as described above with no new areas of infarction. 3. Splenic artery aneurysms are stable, one thrombosed. 4. Other incidental findings as described above. 5. Single unchanged ground-glass nodule in the right middle lobe is stable and should need no further follow up. Fleischner guidelines were followed.
[2022-10-23] MEDS: iohexoL 350 MG/ML 100 ML INFUS..BTL IV (14:37)
== END 2022-10-23 13:42 | disposition home or self-care (01) ==
LOC: HO.CT 13:41
PROVIDERS: PCP Internal Medicine; Visit Provider Internal Medicine
DX: I77.3 Arterial fibromuscular dysplasia (principal); R51.9 Headache, unspecified; G89.29 Other chronic pain
CPT/HCPCS: 70460; 71275; 74174; Q9967

== ENCOUNTER → 2022-12-12 10:51 | Outpatient (BNVA) | payer OTHER, SELFPAY | PROVIDERS: PCP Internal Medicine; Referring Provider Internal Medicine; Visit Provider Internal Medicine | DX: I77.3 Arterial fibromuscular dysplasia (principal); I10 Essential (primary) hypertension; N28.0 Ischemia and infarction of kidney; Q21.10 Atrial septal defect, unspecified | CPT/HCPCS: 93005 ==

== ENCOUNTER 2022-12-30 08:06 | Outpatient (REF) | payer OTHER, SELFPAY ==
--- NOTE | ~2022-12-30 | CT_ITS ---
EXAMINATION: CT ANGIOGRAM ABDOMEN AND PELVIS WITH RUN-OFF CLINICAL INFORMATION: Fibromuscular dysplasia. COMPARISON: CTA from 10/23/2022 TECHNIQUE: Multiple axial images were obtained through the abdomen, pelvis, and lower extremities following the administration of 100 mL of Omnipaque 350 intravenous contrast. Sagittal, coronal, and MIP oblique sagittal reformatted images were obtained on the CT workstation, uploaded to PACS, and reviewed. Images were evaluated on independent dedicated 3-D workstation and 3-D images were reconstructed with concurrent radiologist supervision and subsequently interpreted. This CT examination was performed using dose optimization techniques as appropriate, variously including the following: *Automated exposure control *Adjustment of mA and/or kV according to patient size (this includes techniques or standardized protocols for targeted exams where dose is matched to indication/reason for exam; i.e. extremities or head) *Use of iterative reconstruction technique DLP: 697 mGy-cm FINDINGS: VASCULATURE: Aorta: Normal in caliber. No wall thickening or aneurysms seen. Celiac axis, superior mesenteric artery, inferior mesenteric artery are patent without significant stenosis, aneurysm or wall thickening. Again seen is a aneurysm of the splenic artery which measures 1.4 cm which is stable. There is a single right renal artery with beaded appearance with tandem areas of mild stenosis and dilation consistent with fibromuscular dysplasia. There is a single left renal artery with beaded appearance with tandem areas of stenosis and mild dilation. There appears to be a 1 focal area of more moderate to severe stenosis in the distal segment. Findings are unchanged compared to the prior exam Right iliac arteries: Common iliac, external iliac and internal iliac arteries are patent without significant stenosis. Left iliac arteries: Common iliac, external iliac and internal iliac arteries are patent without significant stenosis. Right lower extremity: Common femoral artery demonstrates atherosclerotic plaque without significant stenosis. Superficial femoral artery is patent without significant stenosis. Popliteal artery is patent without significant stenosis. Below knee runoff demonstrates patent flow in the anterior tibial artery, posterior tibial artery and peroneal artery without significant stenosis. Left lower extremity: Common femoral artery demonstrates atherosclerotic plaque without significant stenosis. Superficial femoral artery is patent without significant stenosis. Popliteal artery is patent without significant stenosis. Below knee runoff demonstrates patent flow in the anterior tibial artery, posterior tibial artery and peroneal artery without significant stenosis. NONVASCULAR: Lung bases are clear. Cortical scarring is again seen within the left kidney which is unchanged compared to the prior exam. Solid abdominal organs are unremarkable. Bowel loops are unremarkable. No free fluid seen in the abdomen and pelvis. Urinary bladder is unremarkable. Uterus is normal. No pathologic lymphadenopathy or mass lesion seen in the abdomen and pelvis. Osseous structures are intact. CT/CT angio abd aorta runoff IMPRESSION: 1. Beaded appearance of the bilateral renal arteries consistent with fibromuscular dysplasia. There is a focal area of more moderate to severe stenosis in the distal left renal artery. Findings are unchanged compared to the prior exam. 2. Abdominal aorta and bilateral lower extremity arteries are widely patent without significant stenosis. No wall thickening or aneurysm is seen. 3. 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 4. Stable cortical scarring in the left kidney.
[2022-12-30 09:04] LABS: MANUAL DIFF FLAG NO
[2022-12-30 09:18] LABS: Basophils Percent Auto 0.3 % (0-2); Eosinophils Absolute Auto 0.1 X10*3/uL (0.0-0.4); Eosinophils Percent Auto 0.9 % (0-4); Hematocrit 38.7 % (37.0-47.0); Hemoglobin 12.1 g/dl (12.0-16.0); Imm Gran Abs Auto 0.04 X10*3/uL (0.00-0.03); Imm Gran Pct Auto 0.4 % (0.0-0.4); Lymphocytes Absolute Auto 2.7 X10*3/uL (1.2-4.9); Lymphocytes Percent Auto 27.8 % (20-40); Mean Corpuscular HGB Conc 31.3 g/dl (31.0-35.0); Mean Corpuscular Hemoglobin 24.7 pg (27.0-33.0); Mean Corpuscular Volume 79.1 fL (80.0-98.0); Mean Platelet Volume 9.6 fL (9.4-12.3); Monocytes Absolute Auto 0.5 X10*3/uL (0.1-1.2); Monocytes Percent Auto 5.4 % (2-11); Neutrophils Absolute Auto 6.2 x10*3/uL (2.0-8.3); Neutrophils Percent Auto 65.2 % (45-73); Platelet Count 262 X10*3/uL (160-400); Red Blood Count 4.89 X10*6/uL (4.20-5.50); Red Cell Distribution Width 13.9 % (11.0-16.0); White Blood Count 9.6 X10*3/uL (4.8-10.8)
[2022-12-30 09:59] LABS: Anion Gap 13 (12-20); Blood Urea Nitrogen 16 mg/dL (9-16); Calcium 9.6 mg/dL (8.4-10.2); Carbon Dioxide 26 mmol/L (22-29); Chloride 106 mmol/L (96-108); Cholesterol 217 mg/dL; Estimated Glomerular Filt Rate > 60; HDL Cholesterol 46 mg/dL; LDL Cholesterol Calculated 152 mg/dl; Potassium 3.8 mmol/L (3.3-5.1); Sodium 141 mmol/L (135-145); Triglycerides 98 mg/dL
[2022-12-30 10:06] LABS: Erythrocyte Sedimentation Rate 20 MM/HR (0-20)
[2022-12-30 10:08] LABS: Ferritin 27 ng/mL (10-250)
[2022-12-30 11:22] LABS: Glucose Random 95 mg/dL (60-115)
[2022-12-30 12:55] LABS: Alanine Aminotransferase 14 U/L (0-31); Albumin Level 4.1 g/dL (3.5-5.0); Alkaline Phosphatase 125 U/L (39-117); Aspartate Amino Transferase 16 U/L (5-31); Bilirubin Direct 0.2 mg/dL (0.0-0.5); Bilirubin Total 0.6 mg/dL (0.0-1.0)
[2022-12-30] MEDS: iohexoL 350 MG/ML 100 ML INFUS..BTL IV (14:32)
== END 2022-12-30 08:07 | disposition home or self-care (01) ==
LOC: HO.LAB 08:06
PROVIDERS: Internal Medicine; Absent Provider Internal Medicine Medical Oncology; PCP Internal Medicine; Visit Provider Internal Medicine
DX: I10 Essential (primary) hypertension (principal); I77.3 Arterial fibromuscular dysplasia; E78.5 Hyperlipidemia, unspecified; N18.9 Chronic kidney disease, unspecified; D63.1 Anemia in chronic kidney disease; M79.10 Myalgia, unspecified site
CPT/HCPCS: 36415; 75635; 80048; 80061; 80076; 82728; 84443; 85025; 85652; Q9967

== ENCOUNTER 2022-12-31 09:14 | Outpatient (REF) | payer OTHER, SELFPAY ==
--- NOTE | 2022-12-31 09:16 | HM_ITS ---
* Underlying rhythm is sinus. Average ventricular rate 73/Min. Range 51 to 124/Min. * Occasional PVCs. [place] of 0.3%. Mostly isolated. Some couplets, triplets, bigeminy, trigeminy. 7 brief runs. Longest 3 beats. * Occasional supraventricular ectopy. Very low burden. * No significant pauses or AV blocks. * Patient symptoms correlate with sinus rhythm and PVCs. MTDD
== END 2022-12-31 09:15 | disposition home or self-care (01) ==
LOC: HO.CT 09:14
PROVIDERS: Visit Provider Internal Medicine Cardiovascular Disease
DX: I77.3 Arterial fibromuscular dysplasia (principal); I48.0 Paroxysmal atrial fibrillation; R00.2 Palpitations
CPT/HCPCS: 93246

== ENCOUNTER 2023-02-18 13:15 | Outpatient (REF) | payer OTHER, SELFPAY ==
[2023-02-18 14:32] LABS: Hematocrit 36.3 % (37.0-47.0); Hemoglobin 11.1 g/dl (12.0-16.0); Mean Corpuscular HGB Conc 30.6 g/dl (31.0-35.0); Mean Corpuscular Hemoglobin 24.7 pg (27.0-33.0); Mean Corpuscular Volume 80.8 fL (80.0-98.0); Mean Platelet Volume 10.5 fL (9.4-12.3); Platelet Count 272 X10*3/uL (160-400); Red Blood Count 4.49 X10*6/uL (4.20-5.50); Red Cell Distribution Width 14.3 % (11.0-16.0); White Blood Count 7.8 X10*3/uL (4.8-10.8)
[2023-02-18 15:29] LABS: Alanine Aminotransferase 12 U/L (0-31); Albumin Level 3.8 g/dL (3.5-5.0); Alkaline Phosphatase 110 U/L (39-117); Anion Gap 12 (12-20); Aspartate Amino Transferase 15 U/L (5-31); Bilirubin Total 0.3 mg/dL (0.0-1.0); Blood Urea Nitrogen 21 mg/dL (9-16); Calcium 9.4 mg/dL (8.4-10.2); Carbon Dioxide 26 mmol/L (22-29); Chloride 106 mmol/L (96-108); Estimated Glomerular Filt Rate > 60; Glucose Random 96 mg/dL (60-115); Potassium 4.4 mmol/L (3.3-5.1); Sodium 140 mmol/L (135-145); Total Protein 7.1 g/dL (6.5-8.0)
[2023-02-18 16:51] LABS: Iron 43 mcg/dL (30-160); Percent Iron Saturation 15 % (15-50); Total Iron Binding Capacity 283 mcg/dL (228-428); Unsaturated Iron Binding 240 ug/dL
[2023-02-18 17:10] LABS: Ferritin 31 ng/mL (10-250)
[2023-02-20 15:58] LABS: Ceruloplasmin 36 mg/dL (18-53)
[2023-02-20 21:13] LABS: Lyme Abs Screen <0.90 index
[2023-02-20 22:40] LABS: Transglutaminase IgA <1.0 U/mL
[2023-02-21 17:13] LABS: IgA 163 mg/dL (70-320); IgG 1094 mg/dL (600-1540); IgM 256 mg/dL (50-300)
[2023-02-24 15:03] LABS: Angiotensin Converting Enzyme 16.2 U/L (9-67)
== END 2023-02-18 13:16 | disposition home or self-care (01) ==
LOC: HO.LAB 13:15
PROVIDERS: Internal Medicine Medical Oncology; Psychiatry & Neurology Neurology; Visit Provider Internal Medicine
DX: R20.0 Anesthesia of skin (principal); D64.9 Anemia, unspecified
CPT/HCPCS: 36415; 80053; 82164; 82390; 82728; 82784; 83540; 84443; 85027; 86334; 86364; 86617; 86618

== ENCOUNTER 2023-02-20 17:14 | Outpatient (REF) | payer OTHER, SELFPAY ==
--- NOTE | ~2023-02-20 | MR_ITS ---
EXAMINATION: MR BRAIN WITHOUT AND WITH CONTRAST MR CERVICAL SPINE WITHOUT AND WITH CONTRAST CLINICAL INFORMATION: White matter MS. COMPARISON: Brain MRI February 11, 2022. TECHNIQUE: Multiplanar, multisequence imaging of the brain and cervical spine was performed before and after the intravenous administration of 7.5 mL of Gadavist. FINDINGS: Brain MRI: Moderate patchy and partly confluent T2/FLAIR hyperintensity is seen within the bilateral cerebral white matter in keeping with demyelinating plaques. No definite new plaques are seen compared with prior. There is no abnormal enhancement. No definite demyelinating plaques are seen within the posterior fossa. There is no acute infarction, hemorrhage, mass, or extra-axial fluid collection. The ventricles are normal in size without hydrocephalus. The major arterial flow voids are preserved at the skull base. The extra cranial structures are unremarkable. Cervical spine MRI: The cervical cord signal appears normal. No definite demyelinating plaques are seen. There is no abnormal enhancement within the cervical spine. The vertebral bodies demonstrate normal heights and alignment. There is mild disc height loss at C5-C6 and C6-C7. No marrow edema is seen. C3-C4: Small central protrusion. C4-C5: Left uncovertebral hypertrophy resulting in mild left neural foraminal stenosis. At C5-C6: Mild disc osteophyte complex with uncovertebral hypertrophy and ligamentum flavum infolding resulting in mild spinal canal stenosis and severe left and mild right neural foraminal stenosis. C6-C7: Mild disc osteophyte complex with uncovertebral hypertrophy resulting in mild to moderate right and mild left neural foraminal stenosis. The extraspinal soft tissues are within normal limits. A few perineural cysts are demonstrated. MR/MR cervical spine wo/w con IMPRESSION: BRAIN MRI: Moderate patchy and partly confluent T2/FLAIR hyperintensity within the bilateral cerebral white matter in keeping with demyelinating plaques. No definite new plaques. No abnormal enhancement. No acute intracranial abnormality. CERVICAL SPINE MRI: No definite demyelinating plaques identified. No abnormal enhancement. Multilevel degenerative spondylosis without high-grade spinal canal stenosis. Neural foraminal stenosis appears severe on the left at C5-C6 and less advanced at other levels.
== END 2023-02-20 17:15 | disposition home or self-care (01) ==
LOC: HO.MRI 17:14
PROVIDERS: PCP Internal Medicine; Visit Provider Psychiatry & Neurology Neurology
DX: R20.2 Paresthesia of skin (principal); R90.82 White matter disease, unspecified; G35 Multiple sclerosis
CPT/HCPCS: 70553; 72156; A9585

== ENCOUNTER 2023-05-02 10:29 | Outpatient (REF) | payer OTHER, SELFPAY ==
[2023-05-02 11:53] LABS: MANUAL DIFF FLAG NO
[2023-05-02 11:58] LABS: Basophils Percent Auto 0.4 % (0-2); Eosinophils Absolute Auto 0.1 X10*3/uL (0.0-0.4); Eosinophils Percent Auto 0.6 % (0-4); Hematocrit 38.6 % (37.0-47.0); Imm Gran Abs Auto 0.04 X10*3/uL (0.00-0.03); Imm Gran Pct Auto 0.4 % (0.0-0.4); Lymphocytes Absolute Auto 2.8 X10*3/uL (1.2-4.9); Lymphocytes Percent Auto 26.1 % (20-40); Mean Corpuscular HGB Conc 31.1 g/dl (31.0-35.0); Mean Corpuscular Volume 80.4 fL (80.0-98.0); Mean Platelet Volume 9.9 fL (9.4-12.3); Monocytes Absolute Auto 0.5 X10*3/uL (0.1-1.2); Monocytes Percent Auto 4.6 % (2-11); Neutrophils Absolute Auto 7.2 x10*3/uL (2.0-8.3); Neutrophils Percent Auto 67.9 % (45-73); Platelet Count 273 X10*3/uL (160-400); Red Cell Distribution Width 14.4 % (11.0-16.0); White Blood Count 10.6 X10*3/uL (4.8-10.8)
[2023-05-02 12:18] LABS: Alanine Aminotransferase 14 U/L (0-31); Albumin Level 4.2 g/dL (3.5-5.0); Alkaline Phosphatase 127 U/L (39-117); Anion Gap 15 (12-20); Aspartate Amino Transferase 19 U/L (5-31); Bilirubin Total 0.4 mg/dL (0.0-1.0); Blood Urea Nitrogen 19 mg/dL (9-16); Calcium 10.1 mg/dL (8.4-10.2); Carbon Dioxide 24 mmol/L (22-29); Chloride 106 mmol/L (96-108); Cholesterol 214 mg/dL (<200); Estimated Glomerular Filt Rate > 60; Glucose Fasting 97 mg/dL (60-99); HDL Cholesterol 48 mg/dL (>40); LDL Cholesterol Calculated 148 mg/dL (<100); Potassium 4.6 mmol/L (3.3-5.1); Sodium 140 mmol/L (135-145); Total Protein 7.6 g/dL (6.5-8.0); Triglycerides 94 mg/dL (<150)
[2023-05-02 12:36] LABS: Ferritin 26 ng/mL (10-250); TSH reflex Free T4 1.79 uIU/mL (0.32-4.0); Vitamin D 25-OH Total 49.8 ng/mL (>30)
[2023-05-02 12:37] LABS: HIV Num 1 1.27 S/CO (0.00-0.99)
[2023-05-02 12:49] LABS: Vitamin B12 520 pg/mL (200-900)
[2023-05-02 14:25] LABS: HIV AB/AG Nonreactive (Nonreactive); HIV Num 2 0.07 S/CO; HIV Num 3 0.06 S/CO
== END 2023-05-02 10:30 | disposition home or self-care (01) ==
LOC: HO.LAB 10:29
PROVIDERS: Absent Provider Student in an Organized Health Care Education/Training Program; PCP Internal Medicine; Referring Provider Student in an Organized Health Care Education/Training Program; Visit Provider Internal Medicine
DX: Z11.4 Encounter for screening for human immunodeficiency virus [HIV] (principal); I77.3 Arterial fibromuscular dysplasia; I77.6 Arteritis, unspecified; D64.9 Anemia, unspecified; E78.5 Hyperlipidemia, unspecified; I10 Essential (primary) hypertension; G35 Multiple sclerosis
CPT/HCPCS: 36415; 80053; 80061; 82306; 82607; 82728; 82746; 84443; 85025; 86362; 87389

== ENCOUNTER → 2023-05-13 13:11 | Outpatient (REF) | payer OTHER, SELFPAY | LOC: HO.SL 13:11 | PROVIDERS: PCP Internal Medicine; Visit Provider Internal Medicine | DX: R06.83 Snoring (principal); R40.0 Somnolence | CPT/HCPCS: 95806 ==

== ENCOUNTER → 2023-05-13 13:22 | Outpatient (BNV) | payer OTHER, SELFPAY | PROVIDERS: PCP Internal Medicine; Visit Provider Internal Medicine | DX: R06.83 Snoring (principal) | CPT/HCPCS: 95806 ==

== ENCOUNTER 2023-05-19 08:58 | Outpatient (REF) | payer OTHER, SELFPAY ==
--- NOTE | ~2023-05-19 | MR_ITS ---
EXAMINATION: MR THORACIC SPINE WITHOUT AND WITH CONTRAST CLINICAL INFORMATION: White matter disease. Paresthesias. Numbness. COMPARISON: MR brain dated 02/20/2023. TECHNIQUE: MRI of the thoracic spine was obtained using routine sequences with and without contrast. Intravenous contrast: Gadavist 7 mL. FINDINGS: The marrow signal is homogeneous. Bulky anterior endplate spurring noted at the [id number] thoracic levels. There are no compression fractures or significant subluxations. No cord lesions are identified. There is no pathologic enhancement. Mild leftward curvature of the thoracic spine noted. There is no central canal stenosis. Mild right-sided neural foraminal narrowing evident at the T4-T5 and T5-T6 levels due to osteophytic spurring. Small disc protrusion is visible at the T3-T4 level. Very mild disc bulges and facet arthropathy noted elsewhere. The conus tip terminates normally at the L1 level. The imaged portions of the lungs are grossly clear. The paraspinal soft tissues are normal. No epidural soft tissue abnormality is seen. Incidental rightward curvature of the spine evident at the cervicothoracic junction. MR/MR thoracic spine wo/w con IMPRESSION: No white matter lesions identified within the thoracic cord. No abnormal enhancement. Mild spondylosis.
[2023-05-19] MEDS: gadobutroL 7.5 ML VIAL IVPUSH (09:58)
== END 2023-05-19 08:59 | disposition home or self-care (01) ==
LOC: HO.MRI 08:58
PROVIDERS: PCP Internal Medicine; Visit Provider Psychiatry & Neurology Neurology
DX: R90.82 White matter disease, unspecified (principal); R20.2 Paresthesia of skin; G35 Multiple sclerosis
CPT/HCPCS: 72157; A9585

== ENCOUNTER → 2023-05-30 14:16 | Outpatient (BNVA) | payer OTHER, SELFPAY | PROVIDERS: PCP Internal Medicine; Visit Provider Internal Medicine Cardiovascular Disease | DX: R07.9 Chest pain, unspecified (principal) ==

== ENCOUNTER → 2023-06-03 09:29 | Outpatient (REF) | payer OTHER, SELFPAY ==
--- NOTE | 2023-06-03 09:32 | CA_ITS ---
Acquisition Time: 2023-06-03 09:41:36 Total Exercise Time: 00:07:27 Test Indications: R07.9 - Chest pain, unspecified Medications: Protocol: JOSEF Max HR: 133 BPM 86% of Pred: 154 BPM Max BP: 138/080 mmHG Max Work Load: 9.2 METS Exercise stress test exercise 7 min 27 sec of Josef protocol achieving 85% MPHR, qwith mild SOB, no chest discomfort, without arrhythmias, with normotensive response to exericse, with inverted T wave lead 1. Test reviewed with Dr. Sousa. Significant artifact in tracings. Difficult to interpret. Referred By: Melvin Gannon Overread By: MADALYN SOUSA
== END ==
LOC: HO.CARD 09:29
PROVIDERS: Visit Provider Internal Medicine Cardiovascular Disease
DX: R07.9 Chest pain, unspecified (principal)
CPT/HCPCS: 93017

== ENCOUNTER → 2023-06-03 09:32 | Outpatient (BNV) | payer OTHER, SELFPAY | PROVIDERS: Visit Provider Internal Medicine | DX: R06.02 Shortness of breath (principal) | CPT/HCPCS: 93016; 93018 ==

== ENCOUNTER 2023-06-06 11:25 | Outpatient (AMB) | payer OTHER, SELFPAY ==
--- NOTE | 2023-06-06 11:32 | MHC.OFFVIS ---
Intake Vital Signs 06/06/23 11:34 06/06/23 11:36 Height 5 ft 4 in Weight 153 lb 0.013 oz BMI 26.3 BP 122/70 110/70 Blood Pressure Location Lt brachial Lt brachial Position Sitting Standing Pulse 80 Intake Visit Reasons: Follow up Intake Note: follow up [place] Barrel Ribs Required: No Accompanied by: Self / Same As Patient Allergies hydroxychloroquine [From Plaquenil] Allergy (Mild, Verified 06/06/23 11:34) RASH tetracycline [Tetracycline] Allergy (Mild, Verified 06/06/23 11:34) RASH Medication List - Last Reconciled 06/06/23 by Randolph Sousa MD aspirin 81 mg PO DAILY erythromycin 0.5 inches ophthalmic (eye) QID mecobalamin (vitamin B12) 1,000 mcg PO DAILY meloxicam 15 mg PO DAILY PRN valsartan 160 mg PO DAILY HPI HPI Comments History of Present Illness Details Radha returns for follow-up. In the past, she was seen in consultation regarding renal infarcts. She had some nonspecific constitutional symptoms and that led to further workup including abdomen CT. That showed renal infarcts bilaterally. Then underwent cardiac workup as well. This appointment is because patient contacted us last week saying that she is getting chest pains. This feels like a burning sensation the chest that can happen any time. Sometimes she wakes up at nighttime. Also random palpitations but previous monitoring have been essentially unremarkable. She also gets some burning sensation in both her arms but that has been longstanding, nonexertional thought to be possibly from some neuropathy. [facility] Medical History (Updated 06/06/23 @ 11:57 by Randolph Sousa MD) Numbness and tingling of upper and lower extremities of both sides Fibromuscular dysplasia History of renal angiogram Anemia Hyperlipidemia Cough Snoring COVID-19 virus infection Abdominal muscle pain Splenic artery aneurysm Fibromuscular dysplasia of bilateral renal arteries Myalgia Anemia Surgical History No pertinent past surgical history Family History Father Acute myocardial infarction Mother Diabetes Other Snoring Social History Patient Tobacco Use Status: Never used Tobacco e-Cigarette/Vaping Use: Never Used Second Hand Smoke Exposure: No service: No Current occupational status: employed Current occupation: Medical doctor Review of Systems Const Denies weakness ENT Denies dizziness Card Denies chest pain, Denies chest pain with activity, Denies syncope, Denies rapid heart rate, Denies pedal edema, Denies edema, Denies leg edema, Denies lightheadedness, Denies palpitations, Denies dyspnea, Denies dyspnea on exertion and Denies orthopnea Resp Denies cough, Denies dyspnea and Denies dyspnea on exertion GI Denies hematochezia and Denies change in stool character Musc Denies abnormal gait, Denies muscle cramps, Denies muscle weakness, Denies numbness, Denies radiating pain into limb and Denies tingling Neuro Denies abnormal gait, Denies dizziness, Denies syncope, Denies numbness, Denies tingling and Denies weakness Endo Denies palpitations Physical Exam Vital Signs: Last Vital Signs Pulse 80 06/06/23 11:36 BP 110/70 06/06/23 11:36 BMI result Body Mass Index 26.3 Const General: comfortable and no acute distress Orientation/consciousness: patient oriented x3 HEENT Other: Unremarkable Head: Yes normal to inspection Neck Neck: Yes normal visual inspection Chest Chest palpation & inspection: normal inspection of the chest Resp Auscultation: clear to auscultation bilaterally Cardio Palpation: normal PMI Heart sounds: S1 normal heart sound present, S2 normal heart sound present, no gallops, no murmurs and no rubs GI Palpation (GI): Soft to palpation Back/Spine/Pelvis Other: unremarkable Skin General skin exam: no rashes or lesions noted Neuro General: patient oriented x3 Extrem General: Yes normal to inspection Psych Mental Status: mental status grossly normal Assessment & Plan Assessment & Plan (1) Renal infarct: Code(s): N28.0 - Ischemia and infarction of kidney (2) PFO (patent foramen ovale): Code(s): Q21.1 - Atrial septal defect (3) Fibromuscular dysplasia: Code(s): I77.3 - Arterial fibromuscular dysplasia (4) Essential hypertension: Code(s): I10 - Essential (primary) hypertension (5) Precordial chest pain: Code(s): R07.2 - Precordial pain Plan Cardiac studies reviewed. Echocardiogram does not show any structural abnormalities and she had preserved LVEF. In the bubble study component, she did have right to left shunting during Valsalva phase which may indicate underlying PFO. 30 day monitor in the past did not show any evidence of atrial fibrillation. Another Holter for 14 days showed occasional PVCs/PACs. Palpitations correlating with sinus rhythm and PVCs. In the stress test, she was able to exercise for 9.2 Mets on Justin protocol and no chest discomfort. Normal blood pressure response to exercise. No EKG evidence of ischemia. Because of these recurrent episodes of chest burning, we will do a coronary CTA for further evaluation. With regard to continued palpitations, there has not been any major findings on prior Holter apart from ectopy. Reassurance. Based on coronary CTA findings, we will plan further. Orders: Orders CT Cardiac Coronary Angio Today I25.10 - Atherosclerotic heart disease of [place] coronary artery without angina pectoris, R07.2 - Precordial pain Coding Level of Care Code Est Pt Level 4 (58110) Diagnoses Renal infarct N28.0 PFO (patent foramen ovale) Q21.1 Fibromuscular dysplasia I77.3 Essential hypertension I10 Precordial chest pain R07.2
[2023-06-06 11:34] VITALS: BP 122/70; BMI 26.3
[2023-06-06 11:36] VITALS: BP 110/70; PULSE 80
== END 2023-06-06 11:58 | disposition home or self-care (01) ==
PROVIDERS: PCP Internal Medicine; Visit Provider Internal Medicine
DX: N28.0 Ischemia and infarction of kidney (principal); Q21.10 Atrial septal defect, unspecified; I77.3 Arterial fibromuscular dysplasia; I10 Essential (primary) hypertension; R07.2 Precordial pain
CPT/HCPCS: 99214

== ENCOUNTER → 2023-06-06 11:25 | Outpatient (BNVA) | payer OTHER, SELFPAY | PROVIDERS: PCP Internal Medicine; Visit Provider Internal Medicine ==

== ENCOUNTER 2023-06-24 09:01 | Outpatient (REF) | payer OTHER, SELFPAY ==
[2023-06-24 10:49] LABS: Appearance Urine Clear; Color Urine Yellow; Glucose Urine UA Negative (Negative); Leukocyte Esterase Urine Trace (Negative); Nitrite Urine Negative (Negative); PH 5.5 (5.0-9.0); UMIC TRIGGER UACC YES; Urine Blood Trace (Negative); Urine Ketones Negative (Negative); Urine Protein Negative (Neg-Trace)
[2023-06-24 10:51] LABS: Bacteria Urine None Seen (None Seen); Hyaline Casts Urine 0-2 /LPF (0-2); Squamous Epithelial Cell Urine 0-2 /HPF (0-2); WBC Urine 0-5 /HPF (0-5)
== END 2023-06-24 09:02 | disposition home or self-care (01) ==
LOC: HO.LAB 09:01
PROVIDERS: PCP Internal Medicine; Visit Provider Internal Medicine Medical Oncology
DX: R31.9 Hematuria, unspecified (principal)
CPT/HCPCS: 81001

== ENCOUNTER → 2023-07-11 15:30 | Outpatient (BNV) | payer OTHER, SELFPAY | PROVIDERS: PCP Internal Medicine; Visit Provider Radiology Diagnostic Radiology | DX: Z12.31 Encounter for screening mammogram for malignant neoplasm of breast (principal) | CPT/HCPCS: 77063; 77067 ==

== ENCOUNTER 2023-07-11 15:57 | Outpatient (REF) | payer OTHER, SELFPAY ==
--- NOTE | ~2023-07-11 | MM_ITS ---
EXAMINATION: MM SCREENING DIGITAL BREAST TOMOSYNTHESIS, BILATERAL CLINICAL INFORMATION: Screening. Asymptomatic. COMPARISON: Mammography: This study is compared with prior exams dating back to 2017. TECHNIQUE: Digital breast tomosynthesis is performed in both the craniocaudal and mediolateral oblique views along with computer-aided detection (CAD). Synthesized 2D images are generated from the tomosynthesis. FINDINGS: There are scattered areas of fibroglandular density (ACR BI-RADS breast composition Category b). There are no significant masses, abnormal calcifications, or other abnormalities. There is a tissue marker present in the left breast from prior benign percutaneous biopsy. MM/MM tomosynthesis screening BI IMPRESSION: No mammographic evidence of malignancy. ASSESSMENT: BI-RADS BI-RADS 2 - Benign Findings RECOMMENDATION: Routine annual mammography screening. 1 year F/U This examination should not preclude the clinical evaluation of a suspicious palpable abnormality. This patient's information was entered into a reminder system with a target due date for their next mammogram.
== END 2023-07-11 15:58 | disposition home or self-care (01) ==
LOC: HO.MAMMO 15:57
PROVIDERS: PCP Internal Medicine; Visit Provider Internal Medicine
DX: Z12.31 Encounter for screening mammogram for malignant neoplasm of breast (principal)
CPT/HCPCS: 77063; 77067

== ENCOUNTER 2023-10-03 12:58 | Outpatient (REF) | payer OTHER, SELFPAY ==
[2023-10-03 13:58] LABS: Influenza A PCR NEGATIVE (Negative); Influenza B PCR NEGATIVE (Negative); Resp Syncy Virus RNA Qual PCR NEGATIVE (Negative); SARS COV2 PCR INHOUSE NEGATIVE (Negative)
== END 2023-10-03 12:59 | disposition home or self-care (01) ==
LOC: HO.LAB 12:58
PROVIDERS: PCP Internal Medicine; Visit Provider Internal Medicine Medical Oncology
DX: Z11.52 Encounter for screening for COVID-19 (principal); Z20.822 Contact with and (suspected) exposure to COVID-19; R68.89 Other general symptoms and signs
CPT/HCPCS: 0241U

== ENCOUNTER 2023-10-06 11:30 | Outpatient (RCR) | payer OTHER, SELFPAY ==
[2023-10-03 08:08] VITALS: BP 143/79; PULSE 69
--- NOTE | 2023-10-03 08:48 | MHC.PT.EP ---
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 She reports of having symptoms of room spinning dizziness for about 1 month. Her symptoms started after sinus infection. She is still dealing with sinus infection and recently changed her antibiotics. She currently reports of having room spinning dizziness every time she rolls in bed and moves from sit to supine. She also reports of having nausea. Her symptoms typically last for a few seconds. On PT examination she presented with intact smooth pursuit, saccades, visual tracking, negative head thrust, negative DVA and was positive for BPPV for R PC. She lives with her family and is independent with all ADLS however does them slowly due to dizziness. She works as an oncologist. She would benefit from skilled PT to address the aforementioned impairments and improve tolerance to functional activities. Frequency and Duration: The patient will be seen 2/week for 4 weeks. Short Term Goals: Electrotype Molder Goals: Patient to be educated on symptoms and indications to return to therapy when needed min 4 weeks. Pt will be negative for nystagmus or reports of vertigo in all diagnostic positions bilaterally to resolution of BPPV in 4 weeks. Patient to be able to functionally move in all planes and directions without provocation of dizziness to show return to PLOF in 4 weeks. Treatment Plan: Modalities to reduce pain, spasms and effusion. Manual therapy to restore motion and function. Therapeutic exercise to improve strength and flexibility. Neuromuscular re-education for posture and balance. Therapeutic activities to return to functional activities of daily living. Electronically signed by: Mary Field PT DPT Please sign and return to therapist. Thank you for your referral.
--- NOTE | 2023-11-05 10:57 | MHC.PT.DC ---
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 She is therefore being d/c from PT. Electronically signed by: Mary Field PT DPT Please sign and return to therapist. Thank you for your referral.
== END 2023-11-05 10:58 | disposition home or self-care (01) ==
LOC: HO.PT 11:30
PROVIDERS: PCP Internal Medicine; Visit Provider Internal Medicine
DX: R42 Dizziness and giddiness (principal)
CPT/HCPCS: 95992; 97112; 97161

== ENCOUNTER 2023-11-10 11:28 | Outpatient (REF) | payer OTHER, SELFPAY ==
[2023-11-10 11:53] LABS: MANUAL DIFF FLAG NO
[2023-11-10 12:42] LABS: Basophils Percent Auto 0.2 % (0-2); Eosinophils Absolute Auto 0.1 X10*3/uL (0.0-0.4); Eosinophils Percent Auto 0.9 % (0-4); Hematocrit 40.5 % (37.0-47.0); Hemoglobin 12.5 g/dl (12.0-16.0); Imm Gran Abs Auto 0.02 X10*3/uL (0.00-0.03); Imm Gran Pct Auto 0.2 % (0.0-0.4); Lymphocytes Absolute Auto 2.8 X10*3/uL (1.2-4.9); Lymphocytes Percent Auto 34.9 % (20-40); Mean Corpuscular HGB Conc 30.9 g/dl (31.0-35.0); Mean Corpuscular Hemoglobin 25.2 pg (27.0-33.0); Mean Corpuscular Volume 81.7 fL (80.0-98.0); Mean Platelet Volume 10.5 fL (9.4-12.3); Monocytes Absolute Auto 0.4 X10*3/uL (0.1-1.2); Monocytes Percent Auto 5.2 % (2-11); Neutrophils Absolute Auto 4.7 x10*3/uL (2.0-8.3); Neutrophils Percent Auto 58.6 % (45-73); Platelet Count 251 X10*3/uL (160-400); Red Blood Count 4.96 X10*6/uL (4.20-5.50); Red Cell Distribution Width 14.6 % (11.0-16.0); White Blood Count 8.1 X10*3/uL (4.8-10.8)
[2023-11-10 13:21] LABS: Alanine Aminotransferase 62 U/L (0-31); Albumin Level 4.1 g/dL (3.5-5.0); Alkaline Phosphatase 146 U/L (39-117); Anion Gap 11 (12-20); Aspartate Amino Transferase 40 U/L (5-31); Bilirubin Total 0.4 mg/dL (0.0-1.0); Blood Urea Nitrogen 20 mg/dL (9-16); Calcium 9.4 mg/dL (8.4-10.2); Carbon Dioxide 28 mmol/L (22-29); Chloride 106 mmol/L (96-108); Cholesterol 223 mg/dL (<200); Estimated Glomerular Filt Rate > 60; Glucose Random 95 mg/dL (60-115); HDL Cholesterol 54 mg/dL (>40); LDL Cholesterol Calculated 148 mg/dL (<100); Potassium 4.2 mmol/L (3.3-5.1); Sodium 141 mmol/L (135-145); TSH reflex Free T4 2.72 uIU/mL (0.32-4.0); Total Protein 7.3 g/dL (6.5-8.0); Triglycerides 106 mg/dL (<150)
[2023-11-10 13:34] LABS: Erythrocyte Sedimentation Rate 11 MM/HR (0-20)
[2023-11-10 13:44] LABS: Reflex LDLD? No
[2023-11-11 11:27] LABS: Iron 83 mcg/dL (30-160); Percent Iron Saturation 25 % (15-50); Total Iron Binding Capacity 336 mcg/dL (228-428); Unsaturated Iron Binding 253 ug/dL
[2023-11-11 11:38] LABS: Ferritin 17 ng/mL (10-250)
[2023-11-11 14:30] LABS: Estimated Average Glucose 114 mg/dL; Hemoglobin A1c % 5.6 % (<6.0)
[2023-11-13 15:13] LABS: ANA Pattern 2 Nuclear, Homogeneous; ANA Titer 2 1:40 titer; Anti Nuclear Antibody Pattern Mitotic, Centrosome; Anti Nuclear Antibody Screen POSITIVE (NEGATIVE)
== END 2023-11-10 11:29 | disposition home or self-care (01) ==
LOC: HO.LAB 11:28
PROVIDERS: PCP Internal Medicine; Referring Provider Internal Medicine; Visit Provider Internal Medicine Medical Oncology
DX: R20.0 Anesthesia of skin (principal); R20.2 Paresthesia of skin; M79.10 Myalgia, unspecified site; R79.89 Other specified abnormal findings of blood chemistry
CPT/HCPCS: 36415; 80053; 80061; 82550; 82728; 83036; 83540; 84443; 85025; 85652; 86038; 86039

== ENCOUNTER 2023-11-12 11:29 | Outpatient (AMB) | payer OTHER, SELFPAY ==
[2023-11-12 11:47] VITALS: BP 134/86; PULSE 68; O2SAT 98; BMI 26.4
--- NOTE | 2023-11-12 11:47 | A.OFFPC_ITS ---
Vital Signs 11/12/23 11:47 Height 5 ft 4 in Weight 154 lb BMI 26.4 BP 134/86 Blood Pressure Location Lt brachial Position Sitting Pulse 68 Pulse Source Pulse Oximeter Pulse Oximetry (%) 98 Oxygen Delivery Method Room Air Intake Visit Reasons: Follow up Intake Note: Pt is here today for her f/u Allergies hydroxychloroquine [From Plaquenil] Allergy (Mild, Verified 11/13/23 00:29) RASH tetracycline [Tetracycline] Allergy (Mild, Verified 11/13/23 00:29) RASH Medication List - Last Reconciled 11/13/23 by Theresa Young MD ascorbic acid (vitamin C) 250 mg PO DAILY aspirin 81 mg PO DAILY cholecalciferol (vitamin D3) 50 mcg PO DAILY meloxicam 15 mg PO DAILY PRN multivitamin 1 tab PO DAILY valsartan 160 mg PO DAILY Tobacco use date assessed: 11/12/23 Fall risk assessment: No Falls in past year Last assessed Fall Risk: 11/12/23 Dental Screening Dental Screen Date: 11/12/23 Did you have a dental visit in the last 12 months?: Yes Did you have a dental problem in the last 6 months where you did not have access to dental care?: No Was dental information given to patient?: Patient has dentist HPI Follow up HPI Details 68-year-old lady seen by neurologist at [facility], and diagnosed with possible small fiber neuropathy. Patient has been experiencing intermittent episodes of burning sensation in her scalp, cheeks, arms, chest accompanied by myalgia and disequilibrium. This all started after she received her last dose of COVID vaccination approximately a year ago. She has tried gabapentin, meloxicam, vitamin B12 supplements, all of which has been ineffective. She is requesting a referral to see a neurologist that specializes in peripheral neuropathy at [facility], Dr. Leonardo Romano , , and would like to see him in his [place] office. [facility] Medical History (Updated 11/12/23 @ 12:24 by Theresa Young MD) Small fiber neuropathy Numbness and tingling of upper and lower extremities of both sides Fibromuscular dysplasia History of renal angiogram Anemia Hyperlipidemia Cough Snoring COVID-19 virus infection Abdominal muscle pain Splenic artery aneurysm Fibromuscular dysplasia of bilateral renal arteries Myalgia Anemia Surgical History No pertinent past surgical history Family History Father Acute myocardial infarction Mother Diabetes Other Snoring Social History Patient Tobacco Use Status: Never used Tobacco e-Cigarette/Vaping Use: Never Used Second Hand Smoke Exposure: No service: No Current occupational status: employed Current occupation: Medical doctor Cognitive needs: No Hearing needs: No Vision needs: Yes Questionnaire Thrive Questionnaire Date Thrive assessed: 02/21/21 AUDIT C Alcohol Use Questionnaire (AUDIT-C) 1. How often do you have a drink containing alcohol?: Never Total Score: 0 Review of Systems Const Denies headache(s) and Denies weakness Eyes Denies change in vision ENT Reports no additional complaints, Denies headache(s) and Reports disequilibrium Card Denies chest pain, Denies syncope, Denies rapid heart rate, Denies pedal edema, Denies edema, Denies leg edema, Denies palpitations, Denies dyspnea, Denies dyspnea on exertion and Denies orthopnea Resp Denies cough, Denies dyspnea and Denies dyspnea on exertion GI Denies hematochezia and Denies change in stool character Reports no additional complaints Musc Denies abnormal gait, Denies muscle cramps and Denies muscle weakness Neuro Reports as per HPI, Denies abnormal gait, Denies syncope, Denies headache(s), Denies focal weakness, Denies seizure-like activity, Reports disequilibrium and Denies weakness Endo Denies palpitations Loyd/Lymph Reports no additional complaints Physical exam (Primary Care) Vital Signs: Last Vital Signs Pulse 68 11/12/23 11:47 BP 134/86 11/12/23 11:47 Pulse Ox 98 11/12/23 11:47 Oxygen Delivery Method Room Air 11/12/23 11:47 BMI result Body Mass Index 26.4 Tobacco/Smoking Status: Tobacco use Status Tobacco use date assessed 11/12/23 11/12/23 11:54 Patient Tobacco Use Status Never used Tobacco 11/12/23 11:54 e-Cigarette/Vaping Use Never Used 11/12/23 11:54 Thrive Assessment: Date of Thrive Assessment Date Thrive assessed 02/21/21 11/12/23 11:54 Const General: no acute distress Orientation/consciousness: patient oriented x3 HENMT Head: Yes normal to inspection Ears: hearing grossly normal bilaterally Eyes General: appearance normal, both eyes and all related structures Neck Neck: Yes no lymphadenopathy and Yes supple Thyroid: Thyroid normal Resp Effort & Inspection: normal respiratory effort Auscultation: clear to auscultation bilaterally Cardio Rhythm: regular rhythm Heart sounds: S1 normal heart sound present and S2 normal heart sound present Skin Other: Spider veins on thighs and small varicosities nonthrombosed in both lower extremities, left more than the right, no calf tenderness Neuro General: patient oriented x3, gait normal, tone normal, moves all extremities, Normal light touch and pain sensation, no focal motor deficits and CN's II-XI intact bilaterally Cranial nerves: Yes CN's II-XII intact bilaterally Cognition (Neuro): normal cognition Gait exam (Neuro): Normal gait present Motor exam (neuro): 5/5 motor strength present throughout Romberg Test: Positive (Equivocal) Extrem General: Yes full ROM, Yes no joint enlargement, Yes no clubbing, cyanosis or edema and Yes no calf tenderness Assessment and Plan Assessment & Plan (1) Small fiber neuropathy: Code(s): G62.9 - Polyneuropathy, unspecified Plan: Referral made for her to see Dr. Leonardo Romano , who specializes in peripheral neuropathy, at his [place] clinic (2) Screening for osteoporosis: Code(s): Z13.820 - Encounter for screening for osteoporosis Plan: Overdue to get her screening bone density scan. Ordered, in the meantime continue with cholecalciferol 50 mcg daily, taking adequate calcium from dietary sources and staying active with regular weight-bearing exercise. Orders: Orders XR DEXA axial skeleton 11/12/23 Z78.0 - Asymptomatic menopausal state Referrals Neurology Referral G62.9 - Polyneuropathy, unspecified Coding Level of Care Code Est Pt Level 4 (69466) Diagnoses Small fiber neuropathy G62.9 Screening for osteoporosis Z13.820
== END 2023-11-12 16:03 | disposition home or self-care (01) ==
LOC: HO.HMGC 11:29
PROVIDERS: PCP Internal Medicine; Visit Provider Internal Medicine
DX: G62.9 Polyneuropathy, unspecified (principal); Z13.820 Encounter for screening for osteoporosis
CPT/HCPCS: 99214

== ENCOUNTER 2023-12-13 10:55 | Outpatient (REF) | payer OTHER, SELFPAY ==
[2023-12-13 13:32] LABS: MANUAL DIFF FLAG NO
[2023-12-13 13:35] LABS: Basophils Percent Auto 0.4 % (0-2); Eosinophils Absolute Auto 0.1 X10*3/uL (0.0-0.4); Eosinophils Percent Auto 1.6 % (0-4); Hemoglobin 12.4 g/dl (12.0-16.0); Imm Gran Abs Auto 0.01 X10*3/uL (0.00-0.03); Imm Gran Pct Auto 0.1 % (0.0-0.4); Lymphocytes Absolute Auto 2.7 X10*3/uL (1.2-4.9); Mean Corpuscular Volume 80.6 fL (80.0-98.0); Mean Platelet Volume 11.1 fL (9.4-12.3); Monocytes Absolute Auto 0.4 X10*3/uL (0.1-1.2); Monocytes Percent Auto 5.9 % (2-11); Neutrophils Absolute Auto 3.8 x10*3/uL (2.0-8.3); Platelet Count 244 X10*3/uL (160-400); Red Blood Count 4.96 X10*6/uL (4.20-5.50); Red Cell Distribution Width 14.4 % (11.0-16.0)
[2023-12-13 13:48] LABS: Alanine Aminotransferase 68 U/L (0-31); Albumin Level 3.8 g/dL (3.5-5.0); Alkaline Phosphatase 255 U/L (39-117); Anion Gap 12 (12-20); Aspartate Amino Transferase 51 U/L (5-31); Bilirubin Direct 0.2 mg/dL (0.0-0.5); Bilirubin Total 0.5 mg/dL (0.0-1.0); Blood Urea Nitrogen 19 mg/dL (9-16); C Reactive Protein < 0.10 mg/dL (< or = 0.50); Calcium 9.4 mg/dL (8.4-10.2); Carbon Dioxide 27 mmol/L (22-29); Chloride 106 mmol/L (96-108); Estimated Glomerular Filt Rate > 60; Gamma Glutamyl Transpeptidase 144 U/L (7-33); Glucose Random 100 mg/dL (60-115); Potassium 4.1 mmol/L (3.3-5.1); Sodium 141 mmol/L (135-145); Total Protein 7.1 g/dL (6.5-8.0)
[2023-12-14 21:39] LABS: Immunoglobulin G 1052 mg/dL (600-1540)
[2023-12-15 21:24] LABS: Prot Elec - Albumin 3.8 g/dL (3.8-4.8); Prot Elec - Alpha1 0.3 g/dL (0.2-0.3); Prot Elec - Alpha2 0.7 g/dL (0.5-0.9); Prot Elec - Beta 1 0.5 g/dL (0.4-0.6); Prot Elec - Beta 2 0.4 g/dL (0.2-0.5); Prot Elec - Total Protein 6.6 g/dL (6.1-8.1)
[2023-12-16 16:14] LABS: Mitochondrial Antibodies NEGATIVE (NEGATIVE)
[2023-12-17 14:19] LABS: Smooth Muscle Antibody <20 U (<20)
== END 2023-12-13 10:56 | disposition home or self-care (01) ==
LOC: HO.HMGCLDS 10:55
PROVIDERS: Internal Medicine Medical Oncology; PCP Internal Medicine; Referring Provider Internal Medicine Gastroenterology; Visit Provider Internal Medicine
DX: R79.89 Other specified abnormal findings of blood chemistry (principal)
CPT/HCPCS: 36415; 80053; 80076; 82248; 82550; 82784; 82977; 84165; 85025; 86015; 86140; 86381

== ENCOUNTER 2024-01-06 08:18 | Outpatient (REF) | payer OTHER, SELFPAY ==
--- NOTE | ~2024-01-06 | US_ITS ---
EXAMINATION: US ABDOMEN LIMITED WITH LIVER ELASTOGRAPHY CLINICAL INFORMATION: Abnormal liver function tests. COMPARISON: CTA abdomen and pelvis dated 01/01/2023; renal ultrasound dated 09/25/2021; abdominal ultrasound dated 09/23/2013. TECHNIQUE: Real-time imaging of the abdominal viscera. Noninvasive ultrasound liver fibrosis assessment is performed using Charlie ElastPQ point quantification shear wave elastography (2D-SWE) with a C5-2 MHz transducer. Multiple elastography samples are obtained. FINDINGS: PANCREAS: Normal. The visualized pancreatic head and body are normal in appearance. The remainder of the pancreas is obscured from visualization by the overlying bowel gas. LIVER: Normal. The liver demonstrates normal size, contour and echogenicity. No focal lesion or intrahepatic biliary duct dilatation. The right lobe measures 14.9 cm in length. The left lobe measures 8.3 cm in length. Portal flow is towards the liver (hepatopetal). Shear wave liver elastography median stiffness is 1.25 m/s (reference: normal median stiffness is 1.3 m/s or less). IQR/median stiffness to assess sampling precision is 0.12 (reference: good quality data set is IQR/median stiffness of 0.15 or less). GALLBLADDER: Normal. The gallbladder is physiologically distended without evidence of stones, sludge, polyps, wall thickening or pericholecystic fluid. COMMON BILE DUCT: Normal in caliber measuring 0.4 cm in diameter. RIGHT KIDNEY: Normal. No hydronephrosis. No renal calculi or focal parenchymal lesions. The kidney measures 10.2 cm in maximum dimension. FREE FLUID: None. US/US abdomen ryder w elastography IMPRESSION: 1. Unremarkable ultrasound examination. 2. Liver elastography: Measurements are consistent with a high probability of normal liver stiffness. REFERENCE: Society of Radiologists in Ultrasound Liver Stiffness Thresholds (2020): LIVER STIFFNESS THRESHOLDS: *Liver Stiffness equal or less than 1.3 m/s: High probability of being normal. *Liver Stiffness less than 1.7 m/s: In the absence of other known clinical signs, rules out compensated advanced chronic liver disease. *Liver Stiffness 1.7-2.1 m/s: Suggestive of compensated advanced chronic liver disease but need further test for confirmation. *Liver Stiffness over 2.1 m/s: Rules in compensated advanced chronic liver disease. *Liver Stiffness over 2.4 m/s: Suggestive of clinically significant portal hypertension. QUALITY OF DATA SET: *IQR/Median value equal or less than 0.15 implies a quality data set. *IQR/Median value over 0.15 implies a poor quality data set. SIGNIFICANT CHANGE FROM PRIOR EXAM: Significant change if liver stiffness measurement is 10% or greater from prior exam. OTHER CONSIDERATIONS: The stage of liver fibrosis may be overestimated in the setting of acute hepatitis, liver inflammation, elevated liver function tests, hepatic vascular congestion, obstructive cholestasis, non-fasting state, and infiltrative diseases such as amyloidosis and lymphoma. In some patients with NAFLD, the liver stiffness thresholds for compensated advanced chronic liver disease may be lower. In causes other than viral hepatitis and NAFLD, liver stiffness thresholds are not well established.
== END 2024-01-06 08:19 | disposition home or self-care (01) ==
LOC: HO.US 08:18
PROVIDERS: PCP Internal Medicine; Visit Provider Internal Medicine
DX: R79.89 Other specified abnormal findings of blood chemistry (principal)
CPT/HCPCS: 76705; 76981

== ENCOUNTER 2024-03-05 07:56 | Outpatient (AMB) | payer OTHER, SELFPAY ==
[2024-03-05 08:06] VITALS: BP 122/64; PULSE 82; O2SAT 97; BMI 25.0
--- NOTE | 2024-03-05 08:06 | MHC.OFFVIS ---
Vital Signs 03/05/24 08:06 Height 5 ft 4 in Weight 145 lb 8.081 oz BMI 25.0 BP 122/64 Blood Pressure Location Rt brachial Position Sitting Pulse 82 Pulse Source Pulse Oximeter Pulse Oximetry (%) 97 Oxygen Delivery Method Room Air Intake Visit Reasons: ? Intake Note: Radha is a 68 year old female who presents to the office today for a sun skin rash. Allergies hydroxychloroquine [From Plaquenil] Allergy (Mild, Verified 03/05/24 08:09) RASH tetracycline [Tetracycline] Allergy (Mild, Verified 03/05/24 08:09) RASH Medication List - Last Reconciled 03/05/24 by Kae Coronel MD ascorbic acid (vitamin C) 250 mg PO DAILY aspirin 81 mg PO DAILY cholecalciferol (vitamin D3) 50 mcg PO DAILY duloxetine 20 mg PO BID multivitamin 1 tab PO DAILY valsartan 160 mg PO DAILY HPI Comments Details: This is a 68-year-old female who used to follow-up with rheumatology in the past for a positive DARSHANA. She stated that more than 20 years ago have skin rashes related to the sun. She was evaluated by a telephoto installer and had a skin biopsy and was diagnosed with polymorphic light eruption. She was advised to avoid the sun. Hydroxychloroquine was tried and she developed a rash to it. She also stated that she gets rashes with tetracyclines. Back in 2020 a few months after she received both COVID vaccines patient developed fevers, generalized fatigue, diffuse muscle tightness. Inflammatory markers were elevated as well as a positive DARSHANA. She was also having some flank pain. She was evaluated by multiple nephrologists and found to have fibromuscular dysplasia of the renal artery. She was advised to take aspirin. Also found to have splenic artery aneurysm which is being monitored. She also had hypercoagulable workup twice. Patient has seen numerous specialists for the last 2-3 years. No specific diagnosis could be identified to explain all her symptoms. Patient took duloxetine for presumed fibromyalgia for about a month and it provided about 50% improvement in her overall muscle tightness, fatigue and pains. She was in a trip about a week ago and she developed rashes on her arms. Patient wonders whether it is a side effect to duloxetine. The rashes were raised and itchy. They are improving now with sun avoidance and topical steroid creams. She denies any history of DVT/PE. She is unaware of any family history of an autoimmune rheumatic disease. [facility] Medical History Polymorphic light eruption Small fiber neuropathy Numbness and tingling of upper and lower extremities of both sides Fibromuscular dysplasia History of renal angiogram Anemia Hyperlipidemia Cough Snoring COVID-19 virus infection Abdominal muscle pain Splenic artery aneurysm Fibromuscular dysplasia of bilateral renal arteries Myalgia Anemia Surgical History No pertinent past surgical history Family History Father Acute myocardial infarction Mother Diabetes Other Snoring Social History Patient Tobacco Use Status: Never used Tobacco e-Cigarette/Vaping Use: Never Used Second Hand Smoke Exposure: No service: No Current occupational status: employed Current occupation: Medical doctor Cognitive needs: No Hearing needs: No Vision needs: Yes Female Reproductive History Menstrual Total pregnancies: 6 Full term: 4 Ab spontaneous: 2 Review of Systems Const Reports fatigue and Reports weakness Musc Reports arthralgias and Reports muscle weakness Skin/Breast Reports rash Neuro Reports weakness Endo Reports fatigue Physical Exam Vital Signs: Last Vital Signs Pulse 82 03/05/24 08:06 BP 122/64 03/05/24 08:06 Pulse Ox 97 03/05/24 08:06 Oxygen Delivery Method Room Air 03/05/24 08:06 BMI result Body Mass Index 25.0 Const General: cooperative, healthy appearing and comfortable Nutritional Appearance: average body habitus Orientation/consciousness: patient oriented x3 Limitations: no limitations HEENT Head: Yes normocephalic and Yes atraumatic Mouth: moist mucous membranes Resp Effort & Inspection: normal respiratory effort and able to speak in complete sentences Auscultation: clear to auscultation bilaterally Cardio Rate: regular rate Rhythm: regular rhythm Skin Other: Very faint rashes on the sensor aspect of her arms all the way to her forearms bilaterally Few scabbed areas where she scratched left forearm Very similar subtle rash on her face Neuro General: patient oriented x3 Extrem Other: Normal nailfold capillaroscopy Few fibromyalgia tender points No active synovitis Assessment & Plan Assessment & Plan (1) DARSHANA positive: Comment: negative anti DNA, anti-JOHN; normal C3 and C4 Code(s): R76.8 - Other specified abnormal immunological findings in serum Category: Medical Plan: This is a 68-year-old female with history of polymorphic light eruption presents for evaluation of a positive DARSHANA. This is her 1st visit with me. A few months after the 2nd COVID vaccine in 2020 patient developed fevers, generalized muscle aches, fatigue, labs showed a positive DARSHANA. Since then her symptoms have improved but she continues to have the generalized fatigue, muscle aches. Symptoms improved with duloxetine but she developed skin rash on her arms. I believe it was a photosensitive rash in the context of increased sunlight exposure. I think duloxetine should be tried again. With regards to her positive DARSHANA, her photosensitivity, her elevated ESR at some point I would like to order further serologies to better understand her underlying immune process. We discussed potentially adding hydroxychloroquine. Follow-up in 3 months Plan I spent 48 minutes reviewing patient's chart, evaluating patient, ordering diagnostic workup, counseling patient and documenting in the chart Orders: Orders Anti Extractable Nuclear Ag Today M32.9 - Systemic lupus erythematosus, unspecified Complement C3 Today M32.9 - Systemic lupus erythematosus, unspecified Erythrocyte Sedimentation Rate Today M32.9 - Systemic lupus erythematosus, unspecified Sjogren's Antibodies Today M32.9 - Systemic lupus erythematosus, unspecified UA w Microscopic Today M32.9 - Systemic lupus erythematosus, unspecified Comprehensive Met. Panel Today M32.9 - Systemic lupus erythematosus, unspecified Anti DNA DS Antibody Today M32.9 - Systemic lupus erythematosus, unspecified C Reactive Protein Today M32.9 - Systemic lupus erythematosus, unspecified DNA Double Stranded-Crithidia Today M32.9 - Systemic lupus erythematosus, unspecified Protein Creatinine Ratio, Ur Today M32.9 - Systemic lupus erythematosus, unspecified Complete Blood Count Auto Diff Today M32.9 - Systemic lupus erythematosus, unspecified Complement C4 Today M32.9 - Systemic lupus erythematosus, unspecified MSA Panel Extended Today M60.9 - Myositis, unspecified Scleroderma 12 Panel Today M34.9 - Systemic sclerosis, unspecified Coding Level of Care Code Est Pt Level 5 (36134) Diagnoses DARSHANA positive R76.8
== END 2024-03-05 08:38 | disposition home or self-care (01) ==
PROVIDERS: PCP Internal Medicine; Visit Provider Student in an Organized Health Care Education/Training Program
DX: R76.8 Other specified abnormal immunological findings in serum (principal); M32.9 Systemic lupus erythematosus, unspecified
CPT/HCPCS: 99215

== ENCOUNTER → 2024-03-05 07:56 | Outpatient (BNVA) | payer OTHER, SELFPAY | PROVIDERS: PCP Internal Medicine; Visit Provider Student in an Organized Health Care Education/Training Program ==

== ENCOUNTER → 2024-03-11 13:52 | Outpatient (BNVA) | payer OTHER, SELFPAY | PROVIDERS: PCP Internal Medicine; Visit Provider Physician Assistant Medical | DX: Z13.89 Encounter for screening for other disorder (principal) | CPT/HCPCS: 99203 ==

== ENCOUNTER 2024-03-24 11:50 | Outpatient (AMB) | payer OTHER, SELFPAY ==
[2024-03-24 11:58] VITALS: BP 112/70; PULSE 77; O2SAT 98; BMI 25.6
--- NOTE | 2024-03-24 11:58 | A.OFFPC_ITS ---
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 Accompanied by: Self / Same As Patient Allergies hydroxychloroquine [From Plaquenil] Allergy (Mild, Verified 03/29/24 03:13) RASH tetracycline [Tetracycline] Allergy (Mild, Verified 03/29/24 03:13) RASH Medication List - Last Reconciled 03/24/24 by Theresa Young MD aspirin 81 mg PO DAILY cholecalciferol (vitamin D3) 50 mcg PO DAILY multivitamin 1 tab PO DAILY valsartan 160 mg PO DAILY Tobacco use date assessed: 11/12/23 Fall risk assessment: No Falls in past year Last assessed Fall Risk: 03/24/24 Dental Screening Dental Screen Date: 11/12/23 HPI Check up HPI Details 68-year-old lady here today for follow-u p on her hypertension and hyperlipidemia. Has been compliant with medications, currently on valsartan 160 mg daily but has been experiencing intermittent episodes of lightheadedness usually positional . Denies any chest pain or headache, no shortness of breath, fatigue improving, does not want to get further COVID booster, but gets yearly flu shots, reminded to get her shingles vaccination and Prevnar 20. [facility] Medical History (Updated 03/29/24 @ 03:22 by Theresa Young MD) Polymorphic light eruption Small fiber neuropathy Numbness and tingling of upper and lower extremities of both sides Fibromuscular dysplasia History of renal angiogram Anemia Hyperlipidemia Snoring COVID-19 virus infection Splenic artery aneurysm Fibromuscular dysplasia of bilateral renal arteries Myalgia Anemia Surgical History No pertinent past surgical history Family History Father Acute myocardial infarction Mother Diabetes Other Snoring Social History Patient Tobacco Use Status: Never used Tobacco e-Cigarette/Vaping Use: Never Used Second Hand Smoke Exposure: No service: No Current occupational status: employed Current occupation: Medical doctor Cognitive needs: No Hearing needs: No Vision needs: Yes Questionnaire PHQ-9 Over the last 2 weeks, how often have you been bothered by any of the following problems? 51890 - PHQ-9 Billing: Patient declined-do not bill Source: Developed by Drs. Norm Espinoza, Ilana Moralez, Richard Campos and colleagues, with an educational peter from [employer]. Thrive Questionnaire Date Thrive assessed: 03/24/24 I am a: Patient What is your living situation today?: I have a steady place to live Within the past 12 months, did the food you bought not last and you didn't have the money to get more?: Never true Within the past 12 months, did you worry whether your food would run out before you got money to buy more?: Never true Do you have trouble paying for medicines?: No Do you have trouble getting transportation to medical appointments?: No Do you have trouble paying your heating and electricity bill?: No Do you have trouble taking care of your child, family member or friend?: No Do you have trouble with day-to-day activities such as bathing, preparing meals, shopping, managing finances, etc.?: No Are you currently unemployed and looking for a job?: No Are you interested in more education?: No Please select the resources that you would like help with: None Currently or been in a relationship where the following occur: No concerns reported THRIVE Score: 0 AUDIT C Alcohol Use Questionnaire (AUDIT-C) 1. How often do you have a drink containing alcohol?: Never 3. How often do you have six or more drinks on one occasion?: Never Total Score: 0 Score Reviewed/Action Taken: Yes ALEXANDER-7 AMB Questionnaire ALEXANDER-7 Date ALEXANDER - 7 assessed: 03/24/24 Source: Developed by Drs. Norm Espinoza, Ilana Moralez, Richard Campos and colleagues, with an educational peter from [employer]. ALEXANDER-7 Assessment Billing ALEXANDER-7 Assessment Tool: pt declined-do not bill Review of Systems Const Denies body aches, Denies fatigue, Denies fever(s), Denies headache(s) and Denies weakness Eyes Denies change in vision ENT Denies dizziness, Denies headache(s), Denies nasal congestion and Denies nasal discharge Card Denies chest pain, Denies lightheadedness, Denies palpitations and Denies dyspnea Resp Denies chest congestion, Denies cough, Denies dyspnea and Denies wheezing GI Denies abdominal pain, Denies change in bowel habits and Denies heartburn Denies urinary frequency, Denies dysuria and Denies urinary urgency Musc Denies arthralgias, Denies joint swelling, Reports stiffness and Denies tingling Skin/Breast Denies breast pain, Denies breast mass and Denies rash Neuro Denies dizziness, Denies headache(s), Denies tingling and Denies weakness Endo Denies fatigue, Denies polydipsia, Denies polyuria and Denies palpitations Loyd/Lymph Reports no additional complaints Aller/Immun Denies seasonal rhinorrhea and Denies wheezing Physical exam (Primary Care) Vital Signs: Last Vital Signs Pulse 77 03/24/24 11:58 BP 112/70 03/24/24 11:58 Pulse Ox 98 03/24/24 11:58 Oxygen Delivery Method Room Air 03/24/24 11:58 BMI result Body Mass Index 25.6 Tobacco/Smoking Status: Tobacco use Status Tobacco use date assessed 11/12/23 03/24/24 12:02 Patient Tobacco Use Status Never used Tobacco 03/24/24 12:02 e-Cigarette/Vaping Use Never Used 03/24/24 12:02 Thrive Assessment: Date of Thrive Assessment Date Thrive assessed 03/24/24 03/24/24 12:02 Currently or been in a relationship where the following occur: No concerns reported Const General: no acute distress Orientation/consciousness: patient oriented x3 HENCO Head: Yes normal to inspection Ears: hearing grossly normal bilaterally Eyes General: appearance normal, both eyes and all related structures Neck Neck: Yes no lymphadenopathy and Yes supple Thyroid: Thyroid normal Resp Effort & Inspection: normal respiratory effort Auscultation: clear to auscultation bilaterally Cardio Rhythm: regular rhythm Heart sounds: S1 normal heart sound present and S2 normal heart sound present GI Palpation (GI): Soft to palpation, nontender and no guarding Auscultation: normal bowel sounds Neuro General: patient oriented x3, gait normal, tone normal, moves all extremities, Normal light touch and pain sensation, no focal motor deficits and CN's II-XI intact bilaterally Cranial nerves: Yes CN's II-XII intact bilaterally Cognition (Neuro): normal cognition Gait exam (Neuro): Normal gait present Motor exam (neuro): 5/5 motor strength present throughout Romberg Test: Positive (Equivocal) Extrem General: Yes full ROM, Yes no joint enlargement, Yes no clubbing, cyanosis or edema and Yes no calf tenderness Assessment and Plan Assessment & Plan (1) Hyperlipidemia: Code(s): E78.5 - Hyperlipidemia, unspecified Qualifiers: Hyperlipidemia type: unspecified Qualified Code(s): E78.5 - Hyperlipidemia, unspecified Plan: Insert fasting lipids. Continue with adhering to healthy eating habits and getting regular exercise (2) Essential hypertension: Code(s): I10 - Essential (primary) hypertension Plan: Blood pressure at goal of less than 130/80. She however has been having intermittent episodes of lightheadedness, will decrease valsartan dose to 80 mg daily . Check blood pressure at home. Reinforced importance of following a low sodium diet, getting regular exercise, and lowering stress levels. (3) Postmenopausal: Code(s): Z78.0 - Asymptomatic menopausal state Plan: Check vitamin-D level Orders: Orders Vitamin D 25-OH Total 03/24/24 E78.5 - Hyperlipidemia, unspecified, I10 - Essential (primary) hypertension, R79.89 - Other specified abnormal findings of blood chemistry, Z78.0 - Asymptomatic menopausal state Lipid Panel 03/24/24 E78.5 - Hyperlipidemia, unspecified, I10 - Essential (primary) hypertension, R79.89 - Other specified abnormal findings of blood chemistry, Z78.0 - Asymptomatic menopausal state TSH reflex Free T4 03/24/24 E78.5 - Hyperlipidemia, unspecified, I10 - Essential (primary) hypertension, R79.89 - Other specified abnormal findings of blood chemistry, Z78.0 - Asymptomatic menopausal state Medications: New valsartan 80 mg PO DAILY 90 tabs 0RF Coding Level of Care Code Est Pt Level 4 (03133) Complex EM visit Add On G2211 Diagnoses Hyperlipidemia, unspecified hyperlipidemia type E78.5 Hyperlipidemia type: unspecified Essential hypertension I10 Postmenopausal Z78.0
== END 2024-03-24 12:56 | disposition home or self-care (01) ==
PROVIDERS: PCP Internal Medicine; Visit Provider Internal Medicine
DX: E78.5 Hyperlipidemia, unspecified (principal); I10 Essential (primary) hypertension; Z78.0 Asymptomatic menopausal state
CPT/HCPCS: 99214

== ENCOUNTER 2024-04-06 10:07 | Outpatient (REF) | payer OTHER, SELFPAY ==
[2024-04-06 10:43] LABS: MANUAL DIFF FLAG NO
[2024-04-06 10:55] LABS: Basophils Percent Auto 0.3 % (0-2); Eosinophils Absolute Auto 0.1 X10*3/uL (0.0-0.4); Eosinophils Percent Auto 1.5 % (0-4); Hematocrit 37.1 % (37.0-47.0); Hemoglobin 11.6 g/dl (12.0-16.0); Imm Gran Abs Auto 0.04 X10*3/uL (0.00-0.03); Imm Gran Pct Auto 0.4 % (0.0-0.4); Lymphocytes Absolute Auto 2.7 X10*3/uL (1.2-4.9); Lymphocytes Percent Auto 30.1 % (20-40); Mean Corpuscular HGB Conc 31.3 g/dl (31.0-35.0); Mean Corpuscular Hemoglobin 25.1 pg (27.0-33.0); Mean Corpuscular Volume 80.3 fL (80.0-98.0); Mean Platelet Volume 9.5 fL (9.4-12.3); Monocytes Absolute Auto 0.6 X10*3/uL (0.1-1.2); Monocytes Percent Auto 6.1 % (2-11); Neutrophils Absolute Auto 5.5 x10*3/uL (2.0-8.3); Neutrophils Percent Auto 61.6 % (45-73); Platelet Count 262 X10*3/uL (160-400); Red Blood Count 4.62 X10*6/uL (4.20-5.50); Red Cell Distribution Width 14.5 % (11.0-16.0)
[2024-04-06 11:15] LABS: Alanine Aminotransferase 28 U/L (0-31); Alkaline Phosphatase 143 U/L (39-117); Anion Gap 15 (12-20); Aspartate Amino Transferase 25 U/L (5-31); Bilirubin Total 0.6 mg/dL (0.0-1.0); Blood Urea Nitrogen 21 mg/dL (9-16); Calcium 9.6 mg/dL (8.4-10.2); Carbon Dioxide 27 mmol/L (22-29); Chloride 103 mmol/L (96-108); Cholesterol 214 mg/dL (<200); Estimated Glomerular Filt Rate > 60; Glucose Random 97 mg/dL (60-115); HDL Cholesterol 48 mg/dL (>40); LDL Cholesterol Calculated 143 mg/dL (<100); Potassium 3.7 mmol/L (3.3-5.1); Sodium 141 mmol/L (135-145); Total Protein 7.6 g/dL (6.5-8.0); Triglycerides 118 mg/dL (<150)
[2024-04-06 11:15] LABS: Creatinine Urine 126.51 mg/dL; Protein/Creatinine Ratio, Ur 0.06 (<0.2); Total Protein Urine Random 8 mg/dL (<12)
[2024-04-06 11:18] LABS: C Reactive Protein 0.16 mg/dL (< or = 0.50)
[2024-04-06 11:31] LABS: TSH reflex Free T4 2.57 uIU/mL (0.32-4.0); Vitamin D 25-OH Total 50.8 ng/mL (>30)
[2024-04-06 11:39] LABS: Erythrocyte Sedimentation Rate 40 MM/HR (0-20)
[2024-04-06 12:09] LABS: Estimated Average Glucose 114 mg/dL; Hemoglobin A1c % 5.6 % (<6.0)
[2024-04-06 12:29] LABS: Ferritin 46 ng/mL (10-250)
[2024-04-06 12:30] LABS: Vitamin B12 480 pg/mL (200-900)
[2024-04-07 12:53] LABS: Complement C3 167 mg/dL (83-193)
[2024-04-07 14:04] LABS: Immunoglobulin G Subclass 1 763 mg/dL (382-929); Immunoglobulin G Subclass 2 129 mg/dL (241-700); Immunoglobulin G Subclass 3 21 mg/dL (22-178); Immunoglobulin G Subclass 4 57.3 mg/dL (4-86); Immunoglobulin G Total 1135 mg/dL (600-1540)
[2024-04-07 21:09] LABS: Anti DNA DS Antibody <1 IU/mL; Antibody to SS-A Antigen <1.0 NEG AI (<1.0 NEG); Antibody to SS-B Antigen <1.0 NEG AI (<1.0 NEG); SM/Ribonucleoprotein Ab <1.0 NEG AI (<1.0 NEG); Smith Protein <1.0 NEG AI (<1.0 NEG)
[2024-04-12 18:38] LABS: Cytosolic 5'nuc 1A Ab IgG <5 Units; Ej Ab <11 SI (<11); HMGCR Ab IgG <2 CU (<20); Jo-1 Ab <11 SI (<11); MDA5 Ab <11 SI (<11); Mi-2 alpha Ab <11 SI (<11); Mi-2 beta Ab <11 SI (<11); NXP-2 (MJ) Ab <11 SI (<11); Oj Ab <11 SI (<11); Pl-12 Ab <11 SI (<11); Pl-7 Ab <11 SI (<11); SRP Ab <11 SI (<11); TIF1 gamma Ab <11 SI (<11)
[2024-04-16 15:43] LABS: DNAds, Crithidia Antibody Negative (Negative)
[2024-04-22 01:59] LABS: Centromere Protein A Ab <11 SI (<11); Centromere Protein B Ab <11 SI (<11); Fibrillarin Ab <11 SI (<11); PM SCL 100 Ab <11 SI (<11); PM SCL 75 Ab <11 SI (<11); RNA Polymerase III RP11 Ab <11 SI (<11); RNA Polymerase III RP155 Ab <11 SI (<11); SCL-70 Extractable Nuclear Ab <11 SI (<11); Th-To Ab <11 SI (<11); U1 SNRNP RNP 70KD <11 SI (<11); U1 SNRNP RNP A <11 SI (<11); U1 SNRNP RNP C <11 SI (<11)
== END 2024-04-06 10:08 | disposition home or self-care (01) ==
LOC: HO.LAB 10:07
PROVIDERS: Internal Medicine Gastroenterology; Internal Medicine Medical Oncology; Nurse Practitioner; Absent Provider Student in an Organized Health Care Education/Training Program; PCP Internal Medicine; Visit Provider Internal Medicine
DX: I10 Essential (primary) hypertension (principal); D64.9 Anemia, unspecified; E78.5 Hyperlipidemia, unspecified; I48.91 Unspecified atrial fibrillation; Z78.0 Asymptomatic menopausal state; R79.89 Other specified abnormal findings of blood chemistry; M32.9 Systemic lupus erythematosus, unspecified; M60.9 Myositis, unspecified; M34.9 Systemic sclerosis, unspecified
CPT/HCPCS: 36415; 80053; 80061; 82306; 82570; 82607; 82728; 82784; 83036; 83516; 83520; 84156; 84182; 84443; 85025; 85652; 86140; 86160; 86225; 86235; 86255

== ENCOUNTER 2024-09-13 11:56 | Observation (INO) | payer OTHER, SELFPAY ==
--- NOTE | ~2024-09-13 | XR_ITS ---
EXAMINATION: XR CHEST CLINICAL INFORMATION: dyspnea COMPARISON: 09/26/2022. CTPA 10/23/2022. TECHNIQUE: Frontal view of the chest was obtained. FINDINGS: Cardiac silhouette is mildly prominent, likely magnified by AP technique. Mediastinal and hilar contours are normal allowing for technique. Low lung volumes. Patchy parenchymal opacities in the left lower lobe are present, for which pneumonia cannot be excluded. No pneumothorax or effusions. Lungs otherwise clear. No osseous or soft tissue abnormalities. XR/XR chest 1V IMPRESSION: 1. Patchy left lower lobe opacity suggestive of pneumonia. 2. Low lung volumes. Electronically signed by: Ryne Espinosa MD 09/13/2024 01:31 PM [facility]
--- NOTE | 2024-09-13 12:04 | ECG_ITS ---
Test Reason : dizziness Blood Pressure : */* mmHG Vent. Rate : 73 BPM Atrial Rate : 73 BPM P-R Int : 188 ms QRS Dur : 82 ms QT Int : 398 ms P-R-T Axes : 61 47 48 degrees QTcB Int : 438 ms Normal sinus rhythm Possible Left atrial enlargement Borderline ECG When compared with ECG of 15-Feb-2021 15:54, No significant change was found Referred By: Naya Lea Electronically Signed By: Melvin Gannon
--- NOTE | 2024-09-13 12:07 | ED_ITS ---
HPI - Allergic Reaction General Chief complaint: Dizziness Stated complaint: dizziness Time Seen by Provider: 09/13/24 12:01 Source: patient and old records reviewed Mode of arrival: other (stretcher) Limitations: no limitations History of Present Illness ED Provider: MAUREEN FONG narrative: 69 yo female with PMH of HTN, HLD, PFO on aspirin, splenic artery aneurysm, fibromuscular dysplasia here with c/o eating apple candies started at 11am while working she saw the candy bag at work did not buy it or bring it from home. She ate 9 pieces of the candy then started to feel weak, dizzy, nauseated. She was a rapid response. She is very tired. [place] well prior to eating the candies. The candies are THC infused and they have 5mg each of THC she ate 9. She never smoke THC or uses edibles. 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 Symptoms: dizziness and nausea Severity: moderate Treatment prior to arrival: none Previous Allergic Reaction History: none Related Data Home Medications ?Medication ?Instructions ?Recorded ?Confirmed aspirin 81 mg tablet,delayed 81 mg PO DAILY 02/21/21 09/13/24 release duloxetine 20 mg capsule,delayed 20 mg PO BEDTIME 09/13/24 09/13/24 release Previous Rx's ?Medication ?Instructions ?Recorded valsartan 80 mg tablet 80 mg PO DAILY #90 tabs 09/08/24 Allergies Allergy/AdvReac Type Severity Reaction Status Date / Time hydroxychloroquine Allergy Mild RASH Verified 09/13/24 12:17 [From Plaquenil] tetracycline [Tetracycline] Allergy Mild RASH Verified 03/29/24 03:13 Review of Systems 2 Review of Systems: Constitutional : No Fever, No Chills, No Fatigue ENT/Mouth : No sore throat, No Rhinorrhea Eyes: No Eye Pain, No Swelling, No Redness Cardiovascular : No Chest Pain, No SOB, No Dyspnea on Exertion Respiratory : No Cough, No Sputum Gastrointestinal : pos Nausea, No Vomiting, No Diarrhea, No abdominal Pain Genitourinary : No Dysuria, No Urinary Frequency, No Hematuria, Musculoskeletal : No joint pain, No Myalgias, No Joint Swelling Skin : No Skin Lesions, No rash Neuro : pos Weakness, No Numbness, pos Dizziness, no Headache Psych : No Anxiety/Panic, No Depression All other systems reviewed and are negative [facility] Past Medical History Attestation statement: The following information was validated with the patient. Source: old records reviewed Medical History Polymorphic light eruption Small fiber neuropathy Numbness and tingling of upper and lower extremities of both sides Fibromuscular dysplasia History of renal angiogram Anemia Hyperlipidemia Snoring COVID-19 virus infection Splenic artery aneurysm Fibromuscular dysplasia of bilateral renal arteries Myalgia Anemia Surgical History No pertinent past surgical history Family History Family History Father Acute myocardial infarction Mother Diabetes Other Snoring Social History Social History Patient Tobacco Use Status: Never used Tobacco e-Cigarette/Vaping Use: Never Used Second Hand Smoke Exposure: No Advance Directives: No Advance Directives Information Provided: No Do you have a plan to hurt others: No Plan service: No Current occupational status: employed Current occupation: Medical doctor Cognitive needs: No Hearing needs: No Vision needs: Yes Physical Exam ED Vital Signs: Vital Signs - 24 hr 09/13/24 12:15 09/13/24 12:31 Temperature 97.8 F Pulse Rate 73 68 Respiratory Rate 18 18 Blood Pressure 129/60 129/60 Pulse Oximetry 96 99 Oxygen Delivery Method Room Air Nasal Cannula Oxygen Flow Rate 2 BMI result Body Mass Index 25.7 Appearance: Alert. Oriented X3. No acute distress. appears tired Eyes: Pupils equal, round and reactive to light. ENT: Pharynx normal. Neck: Normal inspection. Neck supple. CVS: Normal heart rate and rhythm. Pulses normal. Respiratory: No respiratory distress. Breath sounds normal. Abdomen: Soft and nontender. Skin: Skin warm and dry. Normal skin color. Normal skin turgor. Extremities: No lower extremity edema. No calf ttp Neuro: Oriented X 3. No motor deficit. No sensory deficit. CN2-12 intact Course Course Course Narrative: NOT 16% on RA entered in error she was 96% Reevaluation(s) Reevaluation #1: doubt pneumonia clinically not consistent will hold of treatment Medications Administered Discontinued Medications Generic Name Dose Route Start Last Admin Trade Name Breana PRN Reason Stop Dose Admin Diphenhydramine HCl 25 mg 09/13/24 12:24 09/13/24 12:43 Diphenhydramine Hcl 50 Mg/Ml Vial IVPUSH 09/13/24 12:25 25 mg ONCE ONE Administration Lactated Ringer's 1,000 mls @ 999 mls/hr 09/13/24 12:04 09/13/24 12:15 Lr IV 09/13/24 13:04 999 mls/hr .Q1H1M ONE Administration Metoclopramide HCl 10 mg 09/13/24 12:24 09/13/24 12:43 Metoclopramide Hcl 10 Mg/2 Ml Vial IVPUSH 09/13/24 12:25 10 mg ONCE ONE Administration Ondansetron HCl 4 mg 09/13/24 12:04 09/13/24 12:15 Ondansetron Hcl 4 Mg/2 Ml Vial IVPUSH 09/13/24 12:05 4 mg ONCE ONE Administration Medical Decision Making Medical Decision Making MDM Narrative: 69 yo female with PMH of HTN, HLD, PFO on aspirin, splenic artery aneurysm, fibromuscular dysplasia here with c/o eating candies at work then suddenly feeling dizzy, tired, nauseated the candy bag is here and it was found to be infused with THC 5mg per candy she ate 9 of them. Suspect THC intoxication in someone who does not use THC. At this time I have ordered IVF and zofran. No focal deficits. [place] fine prior to eating the candies. Differential Diagnosis Differential Diagnoses: The differential diagnosis associated with the presentation includes THC intoxication, weakness Admission/Observation Consideration of admission/observation: Escalation of care including admission/observation considered given amount and symptoms she will not improve in the next 12 hours will admit for observation Consult Healthcare Provider Management of the patient was discussed with: Hospitalist (Dr. Caceres to admit) Lab Data [facility] Lab Attestation statement: I reviewed the patient's lab results. 09/13/24 12:11 09/13/24 12:11 Labs: Lab Results 09/13/24 Range/Units 12:11 WBC 9.9 (4.8-10.8) X10*3/uL RBC 4.60 (4.20-5.50) X10*6/uL Hgb 11.3 L (12.0-16.0) g/dl Hct 36.2 L (37.0-47.0) % MCV 78.7 L (80.0-98.0) fL MCH 24.6 L (27.0-33.0) pg MCHC 31.2 (31.0-35.0) g/dl RDW 15.0 (11.0-16.0) % Plt Count 280 (160-400) X10*3/uL MPV 9.7 (9.4-12.3) fL Immature Gran % (Auto) 0.3 (0.0-0.4) % Neut % (Auto) 56.0 (45-73) % Lymph % (Auto) 36.6 (20-40) % [place] % (Auto) 6.0 (2-11) % Eos % (Auto) 0.7 (0-4) % Baso % (Auto) 0.4 (0-2) % Lymph # (Auto) 3.6 (1.2-4.9) X10*3/uL [place] # (Auto) 0.6 (0.1-1.2) X10*3/uL Eos # (Auto) 0.1 (0.0-0.4) X10*3/uL Baso # (Auto) 0.0 (0.0-0.2) X10*3/uL Abs Immat Gran (auto) 0.03 (0.00-0.03) X10*3/uL Absolute Neuts (auto) 5.6 (2.0-8.3) x10*3/uL Absolute Nucleated RBC 0.000 (0.0-0.012) X10*3/uL Nucleated RBC % (auto) 0.0 (0.0-0.2) /100WBC Sodium 139 (135-145) mmol/L Potassium 3.4 (3.3-5.1) mmol/L Chloride 105 (96-108) mmol/L Carbon Dioxide 27 (22-29) mmol/L Anion Gap 10 L (12-20) BUN 19 H (9-16) mg/dL Creatinine 0.84 (0.5-1.4) mg/dL Estim Creat Clear Calc 60.7 Estimated GFR > 60 Random Glucose 106 (60-115) mg/dL Calcium 9.3 (8.4-10.2) mg/dL Magnesium 2.1 (1.6-2.6) mg/dL Total Bilirubin 0.4 (0.0-1.0) mg/dL Direct Bilirubin 0.1 (0.0-0.5) mg/dL AST 23 (5-31) U/L ALT 19 (0-31) U/L Alkaline Phosphatase 142 H (39-117) U/L Troponin I High Sens < 2.7 (<3.5-17.0) ng/L Total Protein 7.3 (6.5-8.0) g/dL Albumin 3.7 (3.5-5.0) g/dL Lipase 28 (8-78) U/L Hold Green Top See Note Independent Interpretation I performed an independent interpretation of an: EKG Interpretation: Rate: 73 Rhythm: NSR [place]: normal Normal P waves. Normal ANDER. Normal QRS complex. ST T wave : normal no EDITH qTC: 438 prior studies: no acute ischemia The study has been interpreted contemporaneously by me. . Independent Historian Clinical information obtained from an independent historian. History obtained from or confirmed by: Other External Record Review External record reviewed: Outpatient record Discharge Plan Discharge Clinical Impression: Accidental marijuana poisoning Qualifiers: Encounter type: initial encounter Qualified Code(s): T40.711A - Poisoning by cannabis, accidental (unintentional), initial encounter Patient Disposition: Admitted As Inpatient
[2024-09-13 12:15] VITALS: BP 129/60; PULSE 73; RESP 18; TEMP 36.6; O2SAT 96; BMI 25.7
[2024-09-13] MEDS: Lactated Ringers 1,000 ML 999 ML IV (12:15)
[2024-09-13] MEDS: ondansetron HCL 4 MG/2 ML VIAL IVPUSH (12:15)
[2024-09-13 12:16] LABS: MANUAL DIFF FLAG NO
[2024-09-13 12:20] LABS: Basophils Percent Auto 0.4 % (0-2); Eosinophils Absolute Auto 0.1 X10*3/uL (0.0-0.4); Eosinophils Percent Auto 0.7 % (0-4); Hematocrit 36.2 % (37.0-47.0); Hemoglobin 11.3 g/dl (12.0-16.0); Imm Gran Abs Auto 0.03 X10*3/uL (0.00-0.03); Imm Gran Pct Auto 0.3 % (0.0-0.4); Lymphocytes Absolute Auto 3.6 X10*3/uL (1.2-4.9); Lymphocytes Percent Auto 36.6 % (20-40); Mean Corpuscular HGB Conc 31.2 g/dl (31.0-35.0); Mean Corpuscular Hemoglobin 24.6 pg (27.0-33.0); Mean Corpuscular Volume 78.7 fL (80.0-98.0); Mean Platelet Volume 9.7 fL (9.4-12.3); Monocytes Absolute Auto 0.6 X10*3/uL (0.1-1.2); Neutrophils Absolute Auto 5.6 x10*3/uL (2.0-8.3); Platelet Count 280 X10*3/uL (160-400); White Blood Count 9.9 X10*3/uL (4.8-10.8)
[2024-09-13 12:31] VITALS: BP 129/60; PULSE 68; RESP 18; O2SAT 99
[2024-09-13 12:33] LABS: Alanine Aminotransferase 19 U/L (0-31); Albumin Level 3.7 g/dL (3.5-5.0); Alkaline Phosphatase 142 U/L (39-117); Anion Gap 10 (12-20); Aspartate Amino Transferase 23 U/L (5-31); Bilirubin Direct 0.1 mg/dL (0.0-0.5); Bilirubin Total 0.4 mg/dL (0.0-1.0); Blood Urea Nitrogen 19 mg/dL (9-16); Calcium 9.3 mg/dL (8.4-10.2); Carbon Dioxide 27 mmol/L (22-29); Chloride 105 mmol/L (96-108); Creatinine Clr Calc Pharmacy 60.7; Estimated Glomerular Filt Rate > 60; Glucose Random 106 mg/dL (60-115); Lipase 28 U/L (8-78); Magnesium 2.1 mg/dL (1.6-2.6); Potassium 3.4 mmol/L (3.3-5.1); Sodium 139 mmol/L (135-145); Total Protein 7.3 g/dL (6.5-8.0)
[2024-09-13 12:41] LABS: Troponin-I High Sensitivity < 2.7 ng/L (<3.5-17.0)
[2024-09-13] MEDS: diphenhydrAMINE HCL 50 MG/ML VIAL 25 MG IVPUSH (12:43)
[2024-09-13] MEDS: Metoclopramide HCl 10 MG/2 ML VIAL IVPUSH (12:43)
--- NOTE | 2024-09-13 12:47 | PC.NURSE ---
patient resting on stretcher w/ eyes closed. complaining of persistent nausea and chest heaviness. medicated as ordered
--- NOTE | 2024-09-13 13:21 | PM.IMHP ---
History of Present Illness Date of Service: 09/13/24 Chief Complaint: Dizziness/nausea 69-year-old female with past medical history of hypertension, hyperlipidemia, splenic artery aneurysm, fibromuscular dysplasia, PFO on aspirin presented to [place] emergency room due to dizziness and nausea that started after eating 9 apple candies each containing 5 g of THC, patient not aware that candies contained THC, patient did not bring candies from home , she started feeling weak, lightheaded feel like passing out associated with nausea, rapid response was called patient vitals were stable, in the emergency room workup showed mild anemia close to baseline, stable electrolytes, troponin less than 2.7, normal magnesium, normal bili and calcium, EKG showed no acute ischemic changes, patient treated in the emergency room with IV Zofran, IV Reglan, IV Benadryl and IV fluids, at present patient complaining of dry mouth, persistent lightheadedness and dizziness, unable to keep her eyes open, complaining of perioral and bilateral hand numbness,Shortness of breath and chest pressure is improving, since patient is unable to stand or ambulate she is being admitted to [place] ED for continued monitoring and treatment for accidental overdose on THC. Review of Systems Review of Systems: General persistent lightheadedness and dizziness, feel cold and chilly, no fevers, CVS no chest pain, no palpitation. Respiratory no cough, no sputum production no respiratory distress. Gastrointestinal persistent nausea, no vomiting, no abdominal pain Skin no rash All other system reviewed and are negative [facility] Medical History Polymorphic light eruption Small fiber neuropathy Numbness and tingling of upper and lower extremities of both sides Fibromuscular dysplasia History of renal angiogram Anemia Hyperlipidemia Snoring COVID-19 virus infection Splenic artery aneurysm Fibromuscular dysplasia of bilateral renal arteries Myalgia Anemia Family History Father Acute myocardial infarction Mother Diabetes Other Snoring Surgical History No pertinent past surgical history Social History Patient Tobacco Use Status: Never used Tobacco e-Cigarette/Vaping Use: Never Used Second Hand Smoke Exposure: No Advance Directives: No Advance Directives Information Provided: No Do you have a plan to hurt others: No Plan service: No Current occupational status: employed Current occupation: Medical doctor Cognitive needs: No Hearing needs: No Vision needs: Yes Meds Allergies Allergy/AdvReac Type Severity Reaction Status Date / Time hydroxychloroquine Allergy Mild RASH Verified 09/13/24 12:17 [From Plaquenil] tetracycline [Tetracycline] Allergy Mild RASH Verified 03/29/24 03:13 Home Medications ?Medication ?Instructions ?Recorded ?Confirmed ?Last Taken ?Type aspirin 81 mg tablet,delayed 81 mg PO DAILY 02/21/21 09/13/24 09/13/24 History release duloxetine 20 mg capsule,delayed 20 mg PO BEDTIME 09/13/24 09/13/24 09/12/24 History release Physical Exam Vital Signs and Narrative: Vital Signs: Last Vital Signs Temp 97.8 F 09/13/24 12:15 Pulse 68 09/13/24 12:31 Resp 18 09/13/24 12:31 BP 129/60 09/13/24 12:31 Pulse Ox 99 09/13/24 12:31 O2 Del Method Nasal Cannula 09/13/24 12:31 O2 Flow Rate 2 09/13/24 12:31 BMI result Body Mass Index 25.7 Const: Other: General awake alert x3 in mild distress due to dizziness Neck supple no JVD. CVS regular rate rhythm, Respiratory lungs clear to auscultation, no respiratory distress, no wheeze, no rhonchi. Gastrointestinal abdomen soft, non tender, bowel sounds audible, no guarding , no rigidity. Extremities no edema. Neuro non focal Skin no rash Psych appropriate affect Results Labs 09/13/24 12:11 09/13/24 12:11 Labs: Laboratory Results - last 24 hr 09/13/24 12:11 MCV 78.7 L MCH 24.6 L MCHC 31.2 RDW 15.0 Plt Count 280 MPV 9.7 Immature Gran % (Auto) 0.3 Neut % (Auto) 56.0 Lymph % (Auto) 36.6 [place] % (Auto) 6.0 Eos % (Auto) 0.7 Baso % (Auto) 0.4 Lymph # (Auto) 3.6 [place] # (Auto) 0.6 Eos # (Auto) 0.1 Baso # (Auto) 0.0 Abs Immat Gran (auto) 0.03 Absolute Neuts (auto) 5.6 Absolute Nucleated RBC 0.000 Nucleated RBC % (auto) 0.0 Anion Gap 10 L Estim Creat Clear Calc 60.7 Estimated GFR > 60 Random Glucose 106 Calcium 9.3 Magnesium 2.1 Total Bilirubin 0.4 Direct Bilirubin 0.1 AST 23 ALT 19 Alkaline Phosphatase 142 H Troponin I High Sens < 2.7 Total Protein 7.3 Albumin 3.7 Lipase 28 Hold Green Top See Note Assessment and Plan (1) Accidental marijuana poisoning: Qualifiers: Encounter type: initial encounter Qualified Code(s): T40.711A - Poisoning by cannabis, accidental (unintentional), initial encounter Status: Acute Plan 68-year-old female with past medical history of hypertension, hyperlipidemia, PFO on aspirin presented to [place] ED after accidental overdose on marijuana patient is being admitted for continued monitoring and treatment of persistent lightheadedness dizziness and, nausea unable to stand or ambulate. Accidental overdose on marijuana Admit to medical floor Persistent lightheadedness, dizziness, and nausea, unable to tolerate by mouth IV fluid D5 Ringer lactate 100 mL/hours IV antiemetics IV Ativan for restlessness/anxiety Supportive care Hypertension stable BP hold valsartan Hyperlipidemia recommend low fat diet DVT prophylaxis with Lovenox Full code Quality Stroke Does the patient have a stroke diagnosis?: No VTE Prior VTE?: No VTE Risk Level:: Medical - moderate - high VTE Device Contraindication: Treatment Not Indicated VTE Drug Contraindication: N/A - Med Ordered
--- NOTE | 2024-09-13 13:51 | PHA.MEDREC ---
Addendum entered by Angela Brown RPh 09/13/24 13:55: reviewed by [facility]. Original Note: Pharmacy Consult ? Medication Reconciliation Pharmacy has completed the medication reconciliation. Spoke to patient to confirm med list. Patient states she is no longer taking Vitamin D3 50 mcg, and Multivitamin. Patent confirmed Duloxetine 20 mg at bedtime, claims does have 20 mg BID.
[2024-09-13] MEDS: Dextrose 5 % and Lactated Ring 1,000 ML 100 ML IVCONT (14:53)
[2024-09-13 15:02] VITALS: BP 127/64; PULSE 72; RESP 16; TEMP 36.6; O2SAT 99
[2024-09-13] MEDS: 0.9 % Sodium Chloride Flush 3 ML SYRINGE IVFLUSH (15:41)
[2024-09-13 17:42] LABS: Appearance Urine Clear; Color Urine Yellow; Glucose Urine UA Negative (Negative); Leukocyte Esterase Urine Negative (Negative); Nitrite Urine Negative (Negative); Urine Blood Negative (Negative); Urine Ketones Negative (Negative); Urine Protein Negative (Neg-Trace)
[2024-09-13 17:45] VITALS: BP 138/61; PULSE 75; RESP 17; TEMP 36.7; O2SAT 100
[2024-09-13 19:29] VITALS: BP 105/65; PULSE 70; RESP 18; TEMP 36.4; O2SAT 95
[2024-09-13] MEDS: DULoxetine HCl 20 MG CAPSULE.DR PO (20:04)
[2024-09-14] MEDS: Dextrose 5 % and Lactated Ring 1,000 ML 100 ML IVCONT (00:33)
[2024-09-14 07:44] VITALS: BP 138/69; PULSE 76; RESP 17; TEMP 36.8; O2SAT 95
[2024-09-14] MEDS: Aspirin Enteric Coated 81 MG TABLET.DR PO (08:37)
--- NOTE | 2024-09-14 09:49 | P.DS_ITS ---
DS: Providers Provider Date of Service: 09/14/24 Date of admission: 09/13/24 13:24 Date of discharge: 09/14/24 Primary care physician: Theresa Young MD DS: Diagnosis Discharge Diagnosis (1) Accidental marijuana poisoning: Status: Acute DS: Summary Hospital Course Hospital Course: History of presenting illness: Date of Service: 09/13/24 Chief Complaint: Dizziness/nausea 69-year-old female with past medical history of hypertension, hyperlipidemia, splenic artery aneurysm, fibromuscular dysplasia, PFO on aspirin presented to [facility] emergency room due to dizziness and nausea that started after eating 9 apple candies each containing 5 g of THC, patient not aware that candies contained THC, patient did not bring candies from home , she started feeling weak, lightheaded feel like passing out associated with nausea, rapid response was called patient vitals were stable, in the emergency room workup showed mild anemia close to baseline, stable electrolytes, troponin less than 2.7, normal magnesium, normal bili and calcium, EKG showed no acute ischemic changes, patient treated in the emergency room with IV Zofran, IV Reglan, IV Benadryl and IV fluids, at present patient complaining of dry mouth, persistent lightheadedness and dizziness, unable to keep her eyes open, complaining of perioral and bilateral hand numbness,Shortness of breath and chest pressure is improving, since patient is unable to stand or ambulate she is being admitted to [facility] ED for continued monitoring and treatment for accidental overdose on THC. Hospital course: 68-year-old female with past medical history of hypertension, hyperlipidemia, PFO on aspirin presented to [facility] ED after accidental overdose on marijuana and admitted to medical floor due to persistent lightheadedness, dizziness, and nausea unable to stand or ambulate, patient treated with IV fluids, IV antiemetics with good response, at present patient is hemodynamically stable, able to tolerate diet, therefore being discharged home with recommendations to continue rest, plenty of fluids, no acute infection noted UA unremarkable, chest x-ray showed patchy parenchymal opacity left lower lobe, unable to exclude pneumonia but since patient clinically stable with no fevers no WBC count and asymptomatic with no cough or shortness of breath therefore not treated with antibiotics.. Hypertension stable BP recommend to resume valsartan. Hyperlipidemia recommend low fat diet Time Attestation Discharge Coordination Time (in mins): 36 Quality: Safe Use of Opioids Does Pt have an Active Cancer Diagnosis on the Problem List?: No Quality: Stroke Does the patient have a stroke diagnosis?: No Physical Exam Vital Signs: Vital Signs: Last Vital Signs Temp 98.3 F 09/14/24 07:44 Pulse 76 09/14/24 07:44 Resp 17 09/14/24 07:44 BP 138/69 09/14/24 07:44 Pulse Ox 95 09/14/24 07:44 O2 Del Method Room Air 09/14/24 07:44 O2 Flow Rate 2 09/13/24 17:45 BMI result Body Mass Index 25.7 Const: Other: General resting comfortably in no acute distress. Moist mucous membranes Neck no JVD. CVS regular rate rhythm, Respiratory lungs clear to auscultation, no respiratory distress, no wheeze, no rhonchi. Gastrointestinal abdomen soft, non tender, bowel sounds audible, no guarding , no rigidity. Extremities no edema. Neuro non focal Skin no rash Appropriate affect DS: Data Data Completed and Pending Labs on day of discharge: Laboratory Results - last 24 hr 09/13/24 09/13/24 12:11 17:24 WBC 9.9 RBC 4.60 Hgb 11.3 L Hct 36.2 L MCV 78.7 L MCH 24.6 L MCHC 31.2 RDW 15.0 Plt Count 280 MPV 9.7 Immature Gran % (Auto) 0.3 Neut % (Auto) 56.0 Lymph % (Auto) 36.6 [place] % (Auto) 6.0 Eos % (Auto) 0.7 Baso % (Auto) 0.4 Lymph # (Auto) 3.6 [place] # (Auto) 0.6 Eos # (Auto) 0.1 Baso # (Auto) 0.0 Abs Immat Gran (auto) 0.03 Absolute Neuts (auto) 5.6 Absolute Nucleated RBC 0.000 Nucleated RBC % (auto) 0.0 Sodium 139 Potassium 3.4 Chloride 105 Carbon Dioxide 27 Anion Gap 10 L BUN 19 H Creatinine 0.84 Estim Creat Clear Calc 60.7 Estimated GFR > 60 Random Glucose 106 Calcium 9.3 Magnesium 2.1 Total Bilirubin 0.4 Direct Bilirubin 0.1 AST 23 ALT 19 Alkaline Phosphatase 142 H Troponin I High Sens < 2.7 Total Protein 7.3 Albumin 3.7 Lipase 28 Hold Green Top See Note Urine Color Yellow Urine Appearance Clear Urine pH 7.0 Ur Specific Lake 1.010 Urine Protein Negative Urine Glucose (UA) Negative Urine Ketones Negative Urine Blood Negative Urine Nitrite Negative Ur Leukocyte Esterase Negative Discharge Plan Discharge Anticipated Discharge Date/Time: 09/14/24 09:36 Patient Disposition: Home, Self-Care Discharge Diagnosis: Accidental marijuana overdose Referrals: Theresa Young MD [Primary Care Provider] - 1 Week Discharge Medications: Continued valsartan 80 mg tablet 80 mg PO DAILY Qty: 90 0RF duloxetine 20 mg capsule,delayed release(DR/EC) 20 mg PO BEDTIME aspirin 81 mg tablet,delayed release (DR/EC) 81 mg PO DAILY Discharge Orders: Discharge Order (Routine); Ordered 09/14/24 Ordered By: Teressa Caceres Diet: Advance to usual diet Activity on Discharge: As tolerated Stand Alone Forms: Patient Portal Discharge page, Work/School Release Print Language: Romansh Care Plan Goals: Rest/ drink plenty of fluids Health Concerns: Hypertension Plan of Treatment: Outpatient follow-up with primary care physician call for appointment Assessment: As above
--- NOTE | 2024-09-14 10:22 | MHC.CM.PN ---
Patient dc'd home self care prior to CM assessment.
[2024-09-15 08:10] LABS: Glucose, Whole Blood 103 mg/dL (60-115)
== END 2024-09-14 10:22 | disposition home or self-care (01) ==
LOC: HO.ED 12:43 → HO.EDOVER 13:25 → HO.S3 15:30
PROVIDERS: Admitting Provider Hospitalist; Emergency Provider Emergency Medicine; PCP Internal Medicine; Visit Provider Hospitalist
DX: T40.711A Poisoning by cannabis, accidental (unintentional), initial encounter (principal); R53.1 Weakness; R42 Dizziness and giddiness; Y92.89 Other specified places as the place of occurrence of the external cause; I10 Essential (primary) hypertension; E78.5 Hyperlipidemia, unspecified; D64.9 Anemia, unspecified; Z79.899 Other long term (current) drug therapy
CPT/HCPCS: 36415; 71045; 80048; 80076; 81003; 82947; 83690; 83735; 84484; 85025; 93005; 96361; 96374; 96375; 99221; 99285; J1200; J2405; J2765; J7120

== ENCOUNTER → 2024-09-13 12:04 | Outpatient (BNV) | payer OTHER, SELFPAY | PROVIDERS: Admitting Provider Hospitalist; Emergency Provider Emergency Medicine; PCP Internal Medicine; Visit Provider Internal Medicine Cardiovascular Disease | DX: R42 Dizziness and giddiness (principal) | CPT/HCPCS: 93010 ==

== ENCOUNTER → 2024-09-13 12:52 | Outpatient (BNV) | payer OTHER, SELFPAY | PROVIDERS: Admitting Provider Hospitalist; Emergency Provider Emergency Medicine; PCP Internal Medicine; Visit Provider Radiology Diagnostic Radiology | DX: R91.8 Other nonspecific abnormal finding of lung field (principal) | CPT/HCPCS: 71045 ==

== ENCOUNTER → 2024-09-13 13:24 | Outpatient (BNV) | payer OTHER, SELFPAY | PROVIDERS: Admitting Provider Hospitalist; Emergency Provider Emergency Medicine; PCP Internal Medicine; Visit Provider Hospitalist | DX: T40.711A Poisoning by cannabis, accidental (unintentional), initial encounter (principal) | CPT/HCPCS: 99223; 99239 ==

== ENCOUNTER → 2024-09-17 12:00 | Outpatient (BNV) | payer OTHER, SELFPAY | PROVIDERS: Visit Provider Internal Medicine | DX: Z12.31 Encounter for screening mammogram for malignant neoplasm of breast (principal) | CPT/HCPCS: 77063; 77067 ==

== ENCOUNTER 2024-09-17 12:13 | Outpatient (REF) | payer OTHER, SELFPAY ==
--- NOTE | ~2024-09-17 | MM_ITS ---
EXAMINATION: MM SCREENING DIGITAL BREAST TOMOSYNTHESIS, BILATERAL CLINICAL INFORMATION: Screening. Asymptomatic. COMPARISON: Mammography: Comparison is made with available priors TECHNIQUE: Digital breast mammography with tomosynthesis is performed in both the craniocaudal and mediolateral oblique views along with computer-aided detection (CAD). FINDINGS: The breasts are heterogeneously dense, which may obscure small masses (ACR BI-RADS breast composition Category c). Left breast marker clip from previous needle core biopsy. There are no significant masses, abnormal calcifications, or other abnormalities. MM/MM tomosynthesis screening BI IMPRESSION: No mammographic evidence of malignancy. ASSESSMENT: BI-RADS BI-RADS 2 - Benign Findings RECOMMENDATION: Routine annual mammography screening. 1 year F/U This examination should not preclude the clinical evaluation of a suspicious palpable abnormality. This patient's information was entered into a reminder system with a target due date for their next mammogram. Electronically signed by: Yolanda Adnerson DO 09/17/2024 12:38 PM [facility]
== END 2024-09-17 12:14 | disposition home or self-care (01) ==
LOC: HO.MAMMO 12:13
PROVIDERS: Visit Provider Internal Medicine
DX: Z12.31 Encounter for screening mammogram for malignant neoplasm of breast (principal)
CPT/HCPCS: 77063; 77067

== ENCOUNTER 2025-01-10 10:20 | Outpatient (REF) | payer OTHER, SELFPAY ==
--- OUTSIDE RECORDS SUMMARY | 2025-01-10 10:51 | XMS_ITS | Clinical Summary ---
Author Organization [facility] Address [address] [facility] [address] [place] [address] Phone Care Team Providers Care Sql Data Analyst Name Role Phone Vadim Young MD Primary Care Provider +1- [phone] Allergies Active Allergy Reactions Criticality Noted Date Comments Hydroxychloroquine Rash Low 02/14/2021 Tetracycline Rash Low 02/14/2021 Medications aspirin ([place]) 81 MG EC tablet Take 81 mg by mouth 1 (one) time each day Active valsartan (DIOVAN) 160 MG tablet TAKE ONE TABLET BY MOUTH EVERY DAY 90 tablet 3 3 Active Additional Information Patient taking differently: 80 mgOral Daily, Reported on 04/26/2024 DULoxetine (CYMBALTA) [address] capsule Take 20 mg by mouth 1 (one) time each day Do not crush or chew. 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 Proper posture and sleep position with appropriate neck support reviewed and strongly encouraged. Keep diary of symptoms and modifying factors. Chronic fatigue 07/09/2021 Overview (03/28/2022): Last Assessment & Plan: Balance rest and activity. Keep regular engagement in hobbies/favorite activities. Avoid sick contacts, falls, injuries. Follow age-appropriate screenings and preventive strategies. Well-balanced nutritionally diet and proper hydration. Continue gentle, regular exercise routine as tolerated. Keep a diary of worrisome/changing symptoms. prison current use of aspirin 07/09/2021 Overview (03/28/2022): Last Assessment & Plan: Avoid falls, injuries and cuts. Monitor for excessive bruising and bleeding. 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 Myalgia 03/08/2021 Renal infarct 03/08/2021 Family History Medical History Relation Comments Diabetes Mother Cancer Mother's Sister Relation Status Comments Mother Mother's Sister Social History Tobacco Use Types Packs/Day Years Used Date Smoking Tobacco: Never Assessed Comments Unknown Sex and Gender Information Value Date Recorded Sex Assigned at Not on file Legal Sex Female 4:46 PM EDT Gender Identity Not on file Sexual Orientation Not on file Last Filed Vital Signs Vital Sign Reading Time Taken Comments Blood Pressure 130/78 04/26/2024 12:17 PM EDT Pulse 72 04/26/2024 12:17 PM EDT Temperature - - Respiratory Rate - - Oxygen Saturation 99% 04/26/2024 12:17 PM EDT Inhaled Oxygen Concentration - - Weight 68.8 kg (151 lb 9.6 oz) 04/26/2024 12:17 PM EDT Height - - Body Mass Index - - Plan of Treatment Health Maintenance Due Date Last Done Comments Breast Cancer Screening 1956 Colorectal Cancer Screening: Annual FOBT 2005 Colorectal Cancer Screening: Colonoscopy 2005 Colorectal Cancer Screening: Sigmoidoscopy 2005 Pneumococcal Vaccine: 50+ Ye ars (1 of 1 - PCV) 2006 Influenza Vaccine (Season Ended) 2025 Hepatitis B Vaccine Aged Out No longe r eligible based on patient's age to complete this topic Insurance Comprehensive Benefits Comprehensive Benefits Care Teams Sql Data Analyst Relationship Specialty Start Date End Date Vadim Young MD [address] [place] [address] PCP - General Internal Medicine 03/08/21
--- OUTSIDE RECORDS SUMMARY | 2025-01-10 10:51 | XMS_ITS | Clinical Summary ---
Author Organization [facility] Address [address] [place] [address] Care Team Providers Care Mold Yard Crane Operator Name Role Phone Theresa Young MD Primary Care Provider +1 -[phone] Allergies Active Allergy Reactions Criticality Noted Date Comments Tetracycline 04/21/2023 Medications Medication Sig Dispensed Refills Start Date End Date Status valsartan (DIOVAN) tablet 160 mg 0 02/09/2023 Active gabapentin (NEURONTIN) 100 MG capsule 0 03/06/2023 Active aspirin EC 81 MG tablet Take 1 tablet (81 mg total) by mouth daily. 0 Active Family History Medical History Relation Name Comments Cancer Brother Prostate cancer Father Breast cancer Maternal Aunt Multiple sclerosis Neg Hx Relation Name Status Comments Brother Father Maternal Aunt Social History Tobacco Use Types Packs/Day Years Used Date Smoking Tobacco: Never Assessed Tobacco Cessation:Counseling Given: Not Answered Sex and Gender Information Value Date Recorded Sex Assigned at Female 04/10/2023 2:41 PM EDT Gender Identity Not on file Sexual Orientation Not on file Job Start Date Occupation Industry Not on file Not on file Not on file Last Filed Vital Signs Vital Sign Reading Time Taken Comments Blood Pressure 134/88 04/21/2023 8:55 AM EDT Pulse 69 04/21/2023 8:55 AM EDT Temperature 35.9 ??C (96.7 ??F) 04/21/2023 8:55 AM ED T Respiratory Rate - - Oxygen Saturation 97% 04/21/2023 8:55 AM EDT Inhaled Oxygen Concentration - - Weight 68.7 kg (151 lb 6.4 oz) 04/21/2023 8:55 A M EDT Height 162.6 cm (5' 4 ) 04/21/2023 8:55 AM EDT Body Mass Index 25.99 04/21/2023 8:55 AM EDT Plan of Treatment Health Maintenance Due Date Last Done Comments Hepatitis C Screening 1955 COVID-19 Vaccine (#1) 02/11/1957 Depression Screening 1968 Preventative Health Evaluation 1974 DTap / Tdap / Td (1 - Tdap) 1975 Colon Cancer Screening (Colonoscopy) 2001 Breast Cancer Screening (Mammogram) 2006 Shingrix-Zoster Vaccine (1 of 2) 2006 Fall Risk Assessment 2021 Osteoporosis Screening (DEXA Scan) 2021 Pneumococcal Vaccine (1 of 1 - PCV) 2021 Influenza Vaccine (#1) 2024 RSV Adult > 60+ Yrs or Pregn ant (1 - 1-dose 75+ series) 2031 Hepatitis B Vaccines Aged Out No long er eligible based on patient's age to complete this topic RSV Ped < 20 months Aged Out No longe r eligible based on patient's age to complete this topic Care Teams Mold Yard Crane Operator Relationship Specialty Start Date End Date Theresa Young MD [address] [place] [address] PCP - General Internal Medicine 04/21/23
--- OUTSIDE RECORDS SUMMARY | 2025-01-10 10:51 | XMS_ITS | Encounter Summary ---
Author Organization [facility] Address [address] [facility] [address] [place] [address] Phone Care Team Providers Care Utility Pipe Layer Name Role Phone Vadim Young MD Primary Care Provider +1- [phone] Encounter Details Date Type Department Care Team (Late st Contact Info) Description 02/16/2021 Orders Only [facility] [address] [place] [address] Ugo Page MD [address] [facility] [address] [place] [address] Renal infarct (HCC) Social History Tobacco Use Types Packs/Day Years Used Date Smoking Tobacco: Never Assessed Comments Unknown Sex and Gender Information Value Date Recorded Sex Assigned at Not on file Legal Sex Female 4:46 PM EDT Gender Identity Not on file Sexual Orientation Not on file documented as of this encounter Plan of Treatment Not on file documented as of this encounter Procedures Procedure Name Priority Date/Time Associated Diagnosis Comments LYME DISEASE AB W/REFL TO BLOT (IGG,IGM)(REFL) (HC) Routine 02/16/2021 9:21 PM EDT FERRITIN Routine 02/16/2021 1:53 PM EDT BILIRUBIN, TOTAL Routine 02/16/2021 1:53 PM EDT documented in this encounter Results * Lyme Disease Ab w/Refl to Blot (IgG, IgM) (02/16/2021 9:21 PM EDT) Lyme Antibody <0.90 index JOELLE Comment: ? Index ?Interpretation ? ----- ? < 0.90 ? Negative ? 0.90-1.09 ?Equivocal ? > 1.09 ? Positive As recommended by the Food and Drug Administration (FDA), all samples with positive or equivocal results in a Borrelia burgdorferi antibody screen will be tested using a blot method. Positive or equivocal screening test results should not be interpreted as truly positive until verified as such using a supplemental assay (e.g., B. burgdorferi blot). The screening test and/or blot for B. burgdorferi antibodies may be falsely negative in early stages of Lyme disease, including the period when erythema migrans is apparent. THIS TEST WAS PERFORMED AT: [facility] [address] [place] [address],[address] [place], [place] ??[address] CAMILLA CASTRO MD Lyme Blot TNP [place] 02/16/2021 9:21 PM EDT 02/16/2021 9:21 PM EDT Ugo Page MD LAB [id number] SOLICITED RESULTS Final Result JOELLE * Ferritin (02/16/2021 1:53 PM EDT) Pathologist [facility] Ferritin 67 10 - 250 ng/mL [place] 02/16/2021 1:53 PM EDT 02/16/2021 1:53 PM EDT Ugo Page MD LAB BLOOD ORDERABLES Final Re sult JOELLE * Bilirubin, total (02/16/2021 1:53 PM EDT) Total Bilirubin 0.3 0.0 - 1.0 mg/dL [place] 02/16/2021 1:53 PM EDT 02/16/2021 1:53 PM EDT Ugo Page MD LAB BLOOD ORDERABLES Final Re sult JOELLE documented in this encounter Visit Diagnoses Diagnosis Renal infarct (HCC) documented in this encounter Care Teams Utility Pipe Layer Relationship Specialty Start Date End Date Vadim Young MD [address] [place] [id number] PCP - General Internal Medicine 03/08/21 documented as of this encounter
--- OUTSIDE RECORDS SUMMARY | 2025-01-10 10:51 | XMS_ITS | Encounter Summary ---
Author Organization [facility] Address [address] [facility] [address] [place] [address] Phone Care Team Providers Care Solid Waste Landfill Technician Name Role Phone Vadim Young MD Primary Care Provider +1- [phone] Encounter Details Date Type Department Care Team (Late st Contact Info) Description 03/16/2021 Orders Only [facility] [address] [place] [address] Ugo Page MD [address] [facility] [address] [place] [address] Renal infarct (HCC) Social History Tobacco Use Types Packs/Day Years Used Date Smoking Tobacco: Never Assessed Comments Unknown Sex and Gender Information Value Date Recorded Sex Assigned at Not on file Legal Sex Female 4:46 PM EDT Gender Identity Not on file Sexual Orientation Not on file COVID-19 Exposure Response Date Recorded In the last month, have you been in contact with someone who was confirmed or suspected to have Coronavirus / COVID-19? No / Unsure 03/19/2021 9:45 AM EDT documented as of this encounter Plan of Treatment Not on file documented as of this encounter Visit Diagnoses Diagnosis Renal infarct (HCC) documented in this encounter Care Teams Solid Waste Landfill Technician Relationship Specialty Start Date End Date Vadim Young MD [address] [place] [address] PCP - General Internal Medicine 03/08/21 documented as of this encounter
--- OUTSIDE RECORDS SUMMARY | 2025-01-10 10:51 | XMS_ITS | Encounter Summary ---
Author Organization [facility] Address [address] [facility] [address] [address] [place] [address] Phone Care Team Providers Care Insurance Office Manager Name Role Phone Vadim Young MD Primary Care Provider +1- [phone] Encounter Details Date Type Department Care Team (Late st Contact Info) Description 03/21/2021 Orders Only [facility] [address] [place] [address] Ugo Page MD [address] [facility] [address] [place] [address] Renal infarct (HCC) Social History [...] have Coronavirus / COVID-19? No / Unsure 03/20/2021 11:10 AM EDT documented as of this encounter Plan of Treatment Not on file documented as of this encounter Visit Diagnoses Diagnosis Renal infarct (HCC) documented in this encounter Care Teams Insurance Office Manager Relationship Specialty Start Date End Date Vadim Young MD [address] [place] [address] PCP - General Internal Medicine 03/08/21 documented as of this encounter
[2025-01-10 10:52] LABS: MANUAL DIFF FLAG NO
[2025-01-10 10:58] LABS: Basophils Percent Auto 0.4 % (0-2); Eosinophils Absolute Auto 0.1 X10*3/uL (0.0-0.4); Hematocrit 39.5 % (37.0-47.0); Hemoglobin 12.2 g/dl (12.0-16.0); Imm Gran Abs Auto 0.03 X10*3/uL (0.00-0.03); Imm Gran Pct Auto 0.3 % (0.0-0.4); Mean Corpuscular HGB Conc 30.9 g/dl (31.0-35.0); Mean Corpuscular Hemoglobin 24.2 pg (27.0-33.0); Mean Corpuscular Volume 78.2 fL (80.0-98.0); Mean Platelet Volume 9.7 fL (9.4-12.3); Monocytes Absolute Auto 0.5 X10*3/uL (0.1-1.2); Monocytes Percent Auto 5.9 % (2-11); Neutrophils Absolute Auto 5.4 x10*3/uL (2.0-8.3); Neutrophils Percent Auto 59.4 % (45-73); Platelet Count 294 X10*3/uL (160-400); Red Blood Count 5.05 X10*6/uL (4.20-5.50); Red Cell Distribution Width 15.4 % (11.0-16.0)
[2025-01-10 11:16] LABS: Alanine Aminotransferase 19 U/L (0-31); Anion Gap 10 (12-20); Aspartate Amino Transferase 26 U/L (5-31); Bilirubin Total 0.5 mg/dL (0.0-1.0); Blood Urea Nitrogen 20 mg/dL (9-16); Calcium 9.6 mg/dL (8.4-10.2); Carbon Dioxide 32 mmol/L (22-29); Chloride 102 mmol/L (96-108); Cholesterol 201 mg/dL (<200); Estimated Glomerular Filt Rate > 60; Glucose Random 103 mg/dL (60-115); HDL Cholesterol 50 mg/dL (>40); LDL Cholesterol Calculated 130 mg/dL (<100); Potassium 4.4 mmol/L (3.3-5.1); Sodium 140 mmol/L (135-145); Total Protein 7.7 g/dL (6.5-8.0); Triglycerides 107 mg/dL (<150)
[2025-01-10 11:19] LABS: Estimated Average Glucose 123 mg/dL; Hemoglobin A1C 129.6028 umol/L; Hemoglobin A1c % 5.9 % (<6.0)
[2025-01-10 11:56] LABS: TSH reflex Free T4 2.98 uIU/mL (0.32-4.0); Vitamin D 25-OH Total 46.9 ng/mL (>30)
[2025-01-10 12:23] LABS: Alkaline Phosphatase 130 U/L (39-117)
[2025-01-10 12:37] LABS: Reflex LDLD? No
== END 2025-01-10 10:21 | disposition home or self-care (01) ==
LOC: HO.LAB 10:20
PROVIDERS: Absent Provider Student in an Organized Health Care Education/Training Program; PCP Internal Medicine; Visit Provider Internal Medicine Medical Oncology
DX: E78.01 Familial hypercholesterolemia (principal); R79.89 Other specified abnormal findings of blood chemistry
CPT/HCPCS: 36415; 80053; 80061; 82306; 83036; 84443; 85025

== ENCOUNTER 2025-01-20 13:39 | Outpatient (AMB) | payer OTHER, SELFPAY ==
--- NOTE | 2025-01-20 13:48 | A.OFFPC_ITS ---
Intake Visit Reasons: medications Intake Note: Pt is here today to discuss medication Allergies hydroxychloroquine [From Plaquenil] Allergy (Mild, Verified 01/20/25 13:48) RASH tetracycline [Tetracycline] Allergy (Mild, Verified 01/20/25 13:48) RASH Tobacco use date assessed: 01/20/25 Fall risk assessment: No Falls in past year Last assessed Fall Risk: 01/20/25 Dental Screening Dental Screen Date: 01/20/25 [facility] Medical History Polymorphic light eruption Small fiber neuropathy Numbness and tingling of upper and lower extremities of both sides Fibromuscular dysplasia History of renal angiogram Anemia Hyperlipidemia Snoring COVID-19 virus infection Splenic artery aneurysm Fibromuscular dysplasia of bilateral renal arteries Myalgia Anemia Surgical History No pertinent past surgical history Family History Father Acute myocardial infarction Mother Diabetes Other Snoring Social History Patient Tobacco Use Status: Never used Tobacco e-Cigarette/Vaping Use: Never Used Second Hand Smoke Exposure: No service: No Current occupational status: employed Current occupation: Medical doctor Cognitive needs: No Hearing needs: No Vision needs: Yes Questionnaire PHQ-9 Over the last 2 weeks, how often have you been bothered by any of the following problems? 1. Little interest or pleasure in doing things: not at all 2. Feeling down, depressed, or hopeless: not at all 3. Trouble falling or staying asleep, or sleeping too much: not at all 4. Feeling tired or having little energy: not at all 5. Poor appetite or overeating: not at all 6. Feeling bad about yourself - or that you are a failure or have let yourself or your family down: not at all 7. Trouble concentrating on things, such as reading the newspaper or watching television: not at all 8. Moving or speaking so slowly that other people could have noticed. Or the opposite - being so fidgety or restless that you have been moving around a lot more than usual: not at all 9. Thoughts that you would be better off or of hurting yourself in some way: not at all Total score: 0 Depression Screening Interpretation: Negative Depression Screening Done: Yes 38119 - PHQ-9 Billing: Yes Source: Developed by Drs. Norm Espinoza, Ilana Moralez, Richard Campos and colleagues, with an educational peter from [employer]. Thrive Questionnaire Date Thrive assessed: 01/20/25 I am a: Patient What is your living situation today?: I have a steady place to live Within the past 12 months, did the food you bought not last and you didn't have the money to get more?: Never true Within the past 12 months, did you worry whether your food would run out before you got money to buy more?: Never true Do you have trouble paying for medicines?: No Do you have trouble getting transportation to medical appointments?: No Do you have trouble paying your heating and electricity bill?: No Do you have trouble taking care of your child, family member or friend?: No Do you have trouble with day-to-day activities such as bathing, preparing meals, shopping, managing finances, etc.?: No Are you currently unemployed and looking for a job?: No Are you interested in more education?: Yes Please select the resources that you would like help with: Education Currently or been in a relationship where the following occur: No concerns reported THRIVE Score: 0 AUDIT C Alcohol Use Questionnaire (AUDIT-C) 1. How often do you have a drink containing alcohol?: Never Total Score: 0 ALEXANDER-7 AMB Questionnaire ALEXANDER-7 Date ALEXANDER - 7 assessed: 01/20/25 Feeling nervous, anxious, or on edge: 0 = Not at all Not being able to stop or control worryin = Not at all Worrying too much about different things: 0 = Not at all Trouble relaxin = Not at all Being so restless that it is hard to sit still: 0 = Not at all Becoming easily annoyed or irritable: 0 = Not at all Feeling afraid as if something awful might happen: 0 = Not at all Total ALEXANDER-7 score (0-4 normal; 5-9 mild; 10-14 moderate; 15-21 severe): 0 Source: Developed by Ilana Brown Kurt Kroenke and colleagues, with an educational peter from [employer]. Physical exam (Primary Care) Tobacco/Smoking Status: Tobacco use Status Tobacco use date assessed 11/12/23 03/24/24 12:02 Patient Tobacco Use Status Never used Tobacco 09/14/24 09:36 e-Cigarette/Vaping Use Never Used 03/24/24 12:02 Depression Screening Interpretation: Negative Thrive Assessment: Date of Thrive Assessment Date Thrive assessed 03/24/24 09/15/24 14:44 Currently or been in a relationship where the following occur: No concerns reported Coding Additional Codes PHQ-9 - 13509 - PHQ-9 Billing: Yes ([id number])
--- OUTSIDE RECORDS SUMMARY | 2025-01-20 13:50 | XMS_ITS | Encounter Summary ---
Author Organization [facility] Address [address] [facility] [address] [place] [address] Phone Care Team Providers Care Director Of Career Resources Name Role Phone Vadim Young MD Primary Care Provider [phone] Encounter Details Date Type Department Care Team (Late st Contact Info) Description 03/21/2021 Orders Only [facility] [address] [place] [address] Ugo Page MD [address] [facility] [address] [place] [address] Renal infarct (HCC) Social History [...] (HCC) documented in this encounter Care Teams Director Of Career Resources Relationship Specialty Start Date End Date Vadim Young MD [address] [place] [address] PCP - General Internal Medicine 03/08/21 documented as of this encounter
--- NOTE | 2025-01-20 13:59 | A.OFFPC_ITS ---
Vital Signs 01/20/25 14:00 Height 5 ft 4 in Weight 155 lb BMI 26.6 BP 100/80 Blood Pressure Location Lt brachial Position Sitting Respiration 22 H Pulse 63 Pulse Source Pulse Oximeter Temp 98.2 F Temp Source Oral Pulse Oximetry (%) 100 Oxygen Delivery Method Room Air Intake Visit Reasons: medications Allergies hydroxychloroquine [From Plaquenil] Allergy (Mild, Verified 01/20/25 14:17) RASH tetracycline [Tetracycline] Allergy (Mild, Verified 01/20/25 14:17) RASH Medication List - Last Reconciled 01/20/25 by Theresa Young MD aspirin 81 mg PO DAILY duloxetine 20 mg PO BEDTIME naltrexone 3mg po qod omeprazole 20 mg PO DAILY valsartan 80 mg PO DAILY Tobacco use date assessed: 01/20/25 Dental Screening Dental Screen Date: 01/20/25 HPI medications HPI Details 69-year-old lady with history of heartbu rn, small fiber neuropathy, and hypertension, here today for follow-up. She is going to go to [place] for Hajj, and needs to get an official list of all the medicines she is taking to take with her on her trip. She has been feeling well, currently taking aspirin 81 mg daily, naltrexone recently started by neurologist at [facility] for treatment of small fiber neuropathy, valsartan 80 mg daily for her hypertension and takes omeprazole 20 mg once a day as needed for heartburn symptoms. She has been placed on duloxetine in the past for myalgia, has been taking it every other night as she has been experiencing bad dreams when she took it daily. Dr Juan Antonio billingsley at [facility] who she recently saw, has placed her on naltrexone 3 mg every other day for small fiber neuropathy, which has been helping. [facility] Medical History (Updated 01/30/25 @ 02:11 by Theresa Young MD) History of COVID-19 History of heartburn Polymorphic light eruption Small fiber neuropathy Numbness and tingling of upper and lower extremities of both sides Fibromuscular dysplasia History of renal angiogram Splenic artery aneurysm Fibromuscular dysplasia of bilateral renal arteries Myalgia Surgical History No pertinent past surgical history Family History Father Acute myocardial infarction Mother Diabetes Other Snoring Social History Patient Tobacco Use Status: Never used Tobacco e-Cigarette/Vaping Use: Never Used Second Hand Smoke Exposure: No service: No Current occupational status: employed Current occupation: Medical doctor Cognitive needs: No Hearing needs: No Vision needs: Yes Questionnaire PHQ-9 Over the last 2 weeks, how often have you been bothered by any of the following problems? 1. Little interest or pleasure in doing things: not at all 2. Feeling down, depressed, or hopeless: not at all 3. Trouble falling or staying asleep, or sleeping too much: not at all 4. Feeling tired or having little energy: not at all 5. Poor appetite or overeating: not at all 6. Feeling bad about yourself - or that you are a failure or have let yourself or your family down: not at all 7. Trouble concentrating on things, such as reading the newspaper or watching television: not at all 8. Moving or speaking so slowly that other people could have noticed. Or the opposite - being so fidgety or restless that you have been moving around a lot more than usual: not at all 9. Thoughts that you would be better off or of hurting yourself in some way: not at all Total score: 0 Depression Screening Interpretation: Negative Depression Screening Done: Yes 94817 - PHQ-9 Billing: Yes Source: Developed by Drs. Norm Espinoza, Ilana Moralez, Richard Campos and colleagues, with an educational peter from [employer]. Thrive Questionnaire Date Thrive assessed: 01/20/25 I am a: Patient What is your living situation today?: I have a steady place to live Within the past 12 months, did the food you bought not last and you didn't have the money to get more?: Never true Within the past 12 months, did you worry whether your food would run out before you got money to buy more?: Never true Do you have trouble paying for medicines?: No Do you have trouble getting transportation to medical appointments?: No Do you have trouble paying your heating and electricity bill?: No Do you have trouble taking care of your child, family member or friend?: No Do you have trouble with day-to-day activities such as bathing, preparing meals, shopping, managing finances, etc.?: No Are you currently unemployed and looking for a job?: No Are you interested in more education?: Yes Please select the resources that you would like help with: Education Currently or been in a relationship where the following occur: No concerns reported THRIVE Score: 0 AUDIT C Alcohol Use Questionnaire (AUDIT-C) 1. How often do you have a drink containing alcohol?: Never Total Score: 0 ALEXANDER-7 AMB Questionnaire ALEXANDER-7 Date ALEXANDER - 7 assessed: 01/20/25 Feeling nervous, anxious, or on edge: 0 = Not at all Not being able to stop or control worryin = Not at all Worrying too much about different things: 0 = Not at all Trouble relaxin = Not at all Being so restless that it is hard to sit still: 0 = Not at all Becoming easily annoyed or irritable: 0 = Not at all Feeling afraid as if something awful might happen: 0 = Not at all Total ALEXANDER-7 score (0-4 normal; 5-9 mild; 10-14 moderate; 15-21 severe): 0 Source: Developed by Drs. Norm Espinoza, Ilana Moralez, Richard Campos and colleagues, with an educational peter from [employer]. ALEXANDER-7 Assessment Billing ALEXANDER-7 Assessment Tool: ALEXANDER-7 Assessment 79504 Review of Systems Const Denies body aches, Denies fatigue, Denies fever(s), Denies headache(s) and Denies weakness Eyes Denies change in vision ENT Denies dizziness, Denies headache(s), Denies nasal congestion and Denies nasal discharge Card Denies chest pain, Denies lightheadedness, Denies palpitations and Denies dyspnea Resp Denies chest congestion, Denies cough, Denies dyspnea and Denies wheezing GI Denies abdominal pain, Denies change in bowel habits and Denies heartburn Denies urinary frequency, Denies dysuria and Denies urinary urgency Musc Denies arthralgias, Denies joint swelling, Reports stiffness and Denies tingling Skin/Breast Denies breast pain, Denies breast mass and Denies rash Neuro Denies dizziness, Denies headache(s), Denies tingling and Denies weakness Psych Reports no additional complaints Endo Denies fatigue, Denies polydipsia, Denies polyuria and Denies palpitations Loyd/Lymph Reports no additional complaints Aller/Immun Denies seasonal rhinorrhea and Denies wheezing Physical exam (Primary Care) Vital Signs: Last Vital Signs Temp 98.2 F 01/20/25 14:00 Pulse 63 01/20/25 14:00 Resp 22 H 01/20/25 14:00 BP 100/80 01/20/25 14:00 Pulse Ox 100 01/20/25 14:00 Oxygen Delivery Method Room Air 01/20/25 14:00 BMI result Body Mass Index 26.6 Tobacco/Smoking Status: Tobacco use Status Tobacco use date assessed 01/20/25 01/20/25 14:22 Patient Tobacco Use Status Never used Tobacco 01/20/25 14:22 e-Cigarette/Vaping Use Never Used 01/20/25 14:22 PHQ-9: PHQ-9 Score PHQ-9: Total score 0 01/30/25 02:07 Depression Screening Interpretation: Negative Thrive Assessment: Date of Thrive Assessment Date Thrive assessed 01/20/25 01/20/25 14:22 Currently or been in a relationship where the following occur: No concerns reported Const General: no acute distress Orientation/consciousness: patient oriented x3 HENMT Head: Yes normal to inspection Ears: hearing grossly normal bilaterally Eyes General: appearance normal, both eyes and all related structures Neck Neck: Yes no lymphadenopathy and Yes supple Thyroid: Thyroid normal Resp Effort & Inspection: normal respiratory effort Auscultation: clear to auscultation bilaterally Cardio Rhythm: regular rhythm Heart sounds: S1 normal heart sound present and S2 normal heart sound present GI Palpation (GI): Soft to palpation, nontender and no guarding Auscultation: normal bowel sounds Neuro General: patient oriented x3, gait normal, tone normal, moves all extremities, Normal light touch and pain sensation, no focal motor deficits and CN's II-XI intact bilaterally Cranial nerves: Yes CN's II-XII intact bilaterally Cognition (Neuro): normal cognition Gait exam (Neuro): Normal gait present Motor exam (neuro): 5/5 motor strength present throughout Extrem General: Yes full ROM, Yes no joint enlargement, Yes no clubbing, cyanosis or edema and Yes no calf tenderness Psych Appearance: grossly normal and well kempt Mental Status: mental status grossly normal Speech and movement: Normal speech and movement present Affect: normal affect Coding Level of Care Code Est Pt Level 4 (11989) Complex EM visit Add On G2211 Diagnoses Small fiber neuropathy G62.9 Essential hypertension I10 History of heartburn Z87.898 Additional Codes PHQ-9 - 59204 - PHQ-9 Billing: Yes ([id number]) ALEXANDER-7 Assessment Billing - ALEXANDER-7 Assessment Tool: ALEXANDER-7 Assessment 36996 ([id number]) Assessment & Plan Assessment & Plan (1) Small fiber neuropathy: Code(s): G62.9 - Polyneuropathy, unspecified Category: Medical Plan: Currently on naltrexone, placed by her neurologist from [facility]. Also taking duloxetine , now taking every other day (2) Essential hypertension: Code(s): I10 - Essential (primary) hypertension Category: Medical Plan: Blood pressure at goal of less than 130/80. Continue valsartan 80 mg daily. Reinforced importance of following a low sodium diet, getting regular exercise, and lowering stress levels. (3) History of heartburn: Code(s): Z87.898 - Personal history of other specified conditions Category: Medical Plan: Takes omeprazole 20 mg daily as needed Medications: New duloxetine 20 mg PO BEDTIME 90 caps 1RF
[2025-01-20 14:00] VITALS: BP 100/80; PULSE 63; RESP 22; TEMP 36.8; O2SAT 100; BMI 26.6
== END 2025-01-20 14:35 | disposition home or self-care (01) ==
LOC: HO.HMCC 13:40
PROVIDERS: PCP Internal Medicine; Visit Provider Internal Medicine
DX: G62.9 Polyneuropathy, unspecified (principal); I10 Essential (primary) hypertension; Z87.898 Personal history of other specified conditions

== ENCOUNTER → 2025-01-20 13:39 | Outpatient (BNVA) | payer OTHER, SELFPAY | PROVIDERS: PCP Internal Medicine; Visit Provider Internal Medicine | DX: G62.9 Polyneuropathy, unspecified (principal); I10 Essential (primary) hypertension; Z79.899 Other long term (current) drug therapy | CPT/HCPCS: 96127 ==

== ENCOUNTER 2025-04-06 10:37 | Outpatient (AMB) | payer OTHER, SELFPAY ==
[2025-04-06 10:43] VITALS: BP 100/62; PULSE 79; RESP 16; TEMP 36.8; O2SAT 96; BMI 27.3
--- NOTE | 2025-04-06 10:43 | A.OFFPC_ITS ---
Vital Signs 04/06/25 10:43 Height 5 ft 4 in Weight 159 lb BMI 27.3 BP 100/62 Blood Pressure Location Lt brachial Position Sitting Respiration 16 Pulse 79 Pulse Source Pulse Oximeter Temp 98.3 F Temp Source Oral Pulse Oximetry (%) 96 Oxygen Delivery Method Room Air Intake Visit Reasons: Annual PE Intake Note: Pt is here today for her PE Allergies hydroxychloroquine (From Plaquenil) Allergy (Mild, Verified 04/06/25 10:45) RASH tetracycline (Tetracycline) Allergy (Mild, Verified 04/06/25 10:45) RASH Medication List - Last Reconciled 04/10/25 by Theresa Young MD aspirin 81 mg PO DAILY famotidine 40 mg PO DAILY omeprazole 20 mg PO DAILY valsartan 80 mg PO DAILY Tobacco use date assessed: 04/06/25 Fall risk assessment: No Falls in past year Last assessed Fall Risk: 04/06/25 Dental Screening Dental Screen Date: 04/06/25 Did you have a dental visit in the last 12 months?: Yes Did you have a dental problem in the last 6 months where you did not have access to dental care?: No Was dental information given to patient?: Patient has dentist HPI Annual PE HPI Details - The patient is a 69-year-old female he re today for her physical exam. - Anemia: Previously diagnosed, currentl y resolved with no ongoing symptoms. Recent labs indicate normal iron levels and platelet count. - Hyperlipidemia: Previously elevated ch olesterol levels, currently improved with LDL cholesterol noted to have decreased from 223 mg/dL to 134 mg/dL. - Fibromuscular dysplasia: Diagnosed in the renal arteries, managed with aspirin therapy. Blood pressure is well-controlled with Valsartan 80 mg, though the patient reports occasional lightheadedness. - Cataracts: Presence of cataracts noted , with plans for future surgery as advised by the klystrom tube tester. - Nocturia: Reports waking up three to f our times at night to urinate, with no associated pain or discomfort. - Gastroesophageal reflux disease (GERD) : Managed with daily omeprazole, with a plan to do a trial of famotidine - Preventative care: Colonoscopy is due next year. Vaccinations include two COVID-19 vaccines, two boosters, Pneumovax, and flu vaccine. She is considering getting the shingles vaccine. [facility] Medical History (Updated 01/30/25 @ 02:11 by Theresa Young MD) History of COVID-19 History of heartburn Polymorphic light eruption Small fiber neuropathy Numbness and tingling of upper and lower extremities of both sides Fibromuscular dysplasia History of renal angiogram Splenic artery aneurysm Fibromuscular dysplasia of bilateral renal arteries Myalgia Surgical History No pertinent past surgical history Family History Father Acute myocardial infarction Mother Diabetes Other Snoring Social History Patient Tobacco Use Status: Never used Tobacco e-Cigarette/Vaping Use: Never Used Second Hand Smoke Exposure: No service: No Current occupational status: employed Current occupation: Medical doctor Cognitive needs: No Hearing needs: No Vision needs: Yes Female Reproductive History Menstrual Menopause type: natural Questionnaire PHQ-9 Over the last 2 weeks, how often have you been bothered by any of the following problems? Depression Screening Interpretation: Negative Depression Screening Done: Yes Source: Developed by Drs. Norm Espinoza, Ilana Moralez, Richard Campos and colleagues, with an educational peter from [employer]. Thrive Questionnaire Date Thrive assessed: 01/20/25 I am a: Patient What is your living situation today?: I have a steady place to live Within the past 12 months, did the food you bought not last and you didn't have the money to get more?: Never true Within the past 12 months, did you worry whether your food would run out before you got money to buy more?: Never true Do you have trouble paying for medicines?: No Do you have trouble getting transportation to medical appointments?: No Do you have trouble paying your heating and electricity bill?: No Do you have trouble taking care of your child, family member or friend?: No Do you have trouble with day-to-day activities such as bathing, preparing meals, shopping, managing finances, etc.?: No Are you currently unemployed and looking for a job?: No Are you interested in more education?: Yes Please select the resources that you would like help with: Education Currently or been in a relationship where the following occur: No concerns reported THRIVE Score: 0 ALEXANDER-7 AMB Questionnaire ALEXANDER-7 Date ALEXANDER - 7 assessed: 01/20/25 Source: Developed by Drs. Norm Espinzoa, Ilana Moralez, Richard Campos and colleagues, with an educational peter from [employer]. Review of Systems Const Denies body aches, Denies fatigue, Denies fever(s), Denies headache(s) and Denies weakness Eyes Denies change in vision ENT Denies dizziness, Denies headache(s), Denies nasal congestion and Denies nasal discharge Card Denies chest pain, Denies lightheadedness, Denies palpitations and Denies dyspnea Resp Denies chest congestion, Denies cough, Denies dyspnea and Denies wheezing GI Denies abdominal pain, Denies change in bowel habits and Denies heartburn Denies urinary frequency, Denies dysuria and Denies urinary urgency Musc Denies arthralgias, Denies joint swelling, Reports stiffness and Denies tingling Skin/Breast Denies breast pain, Denies breast mass and Denies rash Neuro Denies dizziness, Denies headache(s), Denies tingling and Denies weakness Psych Reports no additional complaints Endo Denies fatigue, Denies polydipsia, Denies polyuria and Denies palpitations Loyd/Lymph Reports no additional complaints Aller/Immun Denies seasonal rhinorrhea and Denies wheezing Physical exam (Primary Care) Vital Signs: Last Vital Signs Temp 98.3 F 04/06/25 10:43 Pulse 79 04/06/25 10:43 Resp 16 04/06/25 10:43 BP 100/62 04/06/25 10:43 Pulse Ox 96 04/06/25 10:43 Oxygen Delivery Method Room Air 04/06/25 10:43 BMI result Body Mass Index 27.3 Tobacco/Smoking Status: Tobacco use Status Tobacco use date assessed 04/06/25 04/06/25 10:45 Patient Tobacco Use Status Never used Tobacco 04/06/25 10:45 e-Cigarette/Vaping Use Never Used 04/06/25 10:45 Depression Screening Interpretation: Negative Thrive Assessment: Date of Thrive Assessment Date Thrive assessed 01/20/25 04/06/25 10:45 Currently or been in a relationship where the following occur: No concerns reported Const General: no acute distress Orientation/consciousness: patient oriented x3 HENWY Head: Yes normal to inspection Ears: hearing grossly normal bilaterally Eyes General: appearance normal, both eyes and all related structures Neck Neck: Yes no lymphadenopathy and Yes supple Thyroid: Thyroid normal Resp Effort & Inspection: normal respiratory effort Auscultation: clear to auscultation bilaterally Cardio Rhythm: regular rhythm Heart sounds: S1 normal heart sound present and S2 normal heart sound present GI Palpation (GI): Soft to palpation, nontender and no guarding Auscultation: normal bowel sounds General: Yes no CVA tenderness Back/Spine/Pelvis Back: no CVA tenderness Skin General skin exam: no rashes or lesions noted Neuro General: patient oriented x3, gait normal, tone normal, moves all extremities, no focal motor deficits and CN's II-XI intact bilaterally Cranial nerves: Yes CN's II-XII intact bilaterally Cognition (Neuro): normal cognition Gait exam (Neuro): Normal gait present Extrem General: Yes full ROM, Yes no joint enlargement, Yes no clubbing, cyanosis or edema and Yes no calf tenderness Psych Appearance: grossly normal and well kempt Mental Status: mental status grossly normal Speech and movement: Normal speech and movement present Affect: normal affect Results Reviewed Results Reviewed: Name: Radha Rubi Age/Sex: 69/F : 1955 Unit#: [id number] Attend Dr: Radha Rubi MD Re01/10/25 Status: DEP [facility] Disch: SPEC : [id number] SHIKHA: 01/10/25 STATUS: COMP REQ : [id number] RECD: 01/10/[address]: Radha Rubi MD COMP: 01/10/25 ENTERED: 01/10/[address]: Theresa Young MD ORDERED: CBC Auto Diff Test Result Flag Reference WBC 9.0 4.8-10.8 X10*3/uL RBC 5.05 4.20-5.50 X10*6/uL HGB 12.2 12.0-16.0 g/dl HCT 39.5 37.0-47.0 % MCV 78.2 L 80.0-98.0 fL MCH 24.2 L 27.0-33.0 pg MCHC 30.9 L 31.0-35.0 g/dl RDW 15.4 11.0-16.0 % PLT 294 160-400 X10*3/uL MPV 9.7 9.4-12.3 fL Neut Pct Auto 59.4 45-73 % ImGran Pct Auto 0.3 0.0-0.4 % Lymp Pct Auto 33.0 20-40 % [place] Pct Auto 5.9 2-11 % Eos Pct Auto 1.0 0-4 % Baso Pct Auto 0.4 0-2 % NRBC Pct Auto 0.0 0.0-0.2 /100WBC ANC Neut Abs # 5.4 2.0-8.3 x10*3/uL ImGran Abs Auto 0.03 0.00-0.03 X10*3/uL Lymph Abs Auto 3.0 1.2-4.9 X10*3/uL [place] Abs Auto 0.5 0.1-1.2 X10*3/uL Eos Abs Auto 0.1 0.0-0.4 X10*3/uL Baso Abs Auto 0.0 0.0-0.2 X10*3/uL NRBC Abs Auto 0.000 0.0-0.012 X10*3/uL Name: Radha Rubi Age/Sex: 69/F : 1955 Unit#: [id number] Attend Dr: Radha Rubi MD Re01/10/25 Status: DEP REF Location: [facility] Disch: SPEC : [id number] SHIKHA: 01/10/25 STATUS: COMP REQ : [id number] RECD: 01/10/25-[address]: Radha Rubi MD COMP: 01/10/25-1155 ENTERED: 01/10/25-[address]: Theresa Young MD ORDERED: CMP, Lipid with Rfx, Vitamin D 25-OH, TSH Rflx Test Result Flag Reference Sodium 140 135-145 mmol/L Potassium 4.4 # 3.3-5.1 mmol/L CL 102 96-108 mmol/L CO2 32 H 22-29 mmol/L Gap 10 L 12-20 BUN 20 H 9-16 mg/dL Creat 0.89 0.5-1.4 mg/dL eGFR > 60 Chronic Kidney Disease: Estimated GFR < 60 mL/min/1.73m2 Severe Kidney Disease: Estimated GFR < 15 mL/min/1.73m2 Glucose, Random 103 60-115 mg/dL CA 9.6 8.4-10.2 mg/dL Total Bili 0.5 0.0-1.0 mg/dL AST (GOT) 26 5-31 U/L ALT (GPT) 19 0-31 U/L Protein, Total 7.7 6.5-8.0 g/dL Alb 4.0 3.5-5.0 g/dL Triglyceride 107 <150 mg/dL Desirable Triglyceride: less than 150 mg/dL Borderline High Triglyceride 150-199 mg/dL High Triglyceride: 200-499 mg/dL Very High Triglyceride: greater than or equal to 5OO mg/dL Cholesterol 201 H <200 mg/dL Desirable Cholesterol: less than 200 mg/dL Borderline High Cholesterol: 200-239 mg/dL High Cholesterol: greater than 239 mg/dL LDL Calculated 130 H <100 mg/dL Desirable LDL: less than 100 mg/dL Near Optimal/Above Optimal LDL: 110-129 mg/dL Borderline High LDL: 130-159 mg/dL High LDL: 160-189 mg/dL Very High LDL: greater than or equal to 190 mg/dL HDL 50 >40 mg/dL Desirable HDL: greater than 40 mg/dL Note: This HDL assay may give artificially low results in patients with liver disease. Alk Phos 130 H 39-117 U/L Vitamin D 25-OH 46.9 >30 ng/mL Health Based Reference Values* < 20 ng/mL Deficient 20-30 ng/mL Insufficient > 30 ng/mL Sufficient *Debora FRANK. N Engl J Med. 2007;357:266-280 There is no well-established upper level of normal vitamin D levels. Some laboratories use 50 ng/mL as an upper limit of normal. However, toxicity is patient-dependent and may occur at any level. Careful correlation with the patient's presentation is necessary and, if there is concern for vitamin D toxicity, treatment should be considered irrespective of the serum level. Care must be taken in interpreting Vitamin D results from different laboratories and methodologies. Published data demonstrated that results from patients undergoing hemodialysis may show a negative bias when tested with various automated 25-OH vitamin D assays when compared to LC-MS/MS. When testing samples from patients whose predominant form of Vitamin D is Vitamin D2, such as patients receiving Vitamin D2 supplementation, results that are subtherapeutic should be confirmed with another method such as LC-MS/MS. TSH 2.98 0.32-4.0 uIU/mL Coding Level of Care Code Est Pt Prev Care >65y(03360) Diagnoses Essential hypertension I10 Fibromuscular dysplasia I77.3 History of heartburn Z87.898 Small fiber neuropathy G62.9 Assessment & Plan Assessment & Plan (1) Essential hypertension: Code(s): I10 - Essential (primary) hypertension Category: Medical (2) Fibromuscular dysplasia: Code(s): I77.3 - Arterial fibromuscular dysplasia Category: Medical (3) History of heartburn: Code(s): Z87.898 - Personal history of other specified conditions Category: Medical (4) Small fiber neuropathy: Code(s): G62.9 - Polyneuropathy, unspecified Category: Medical Plan The patient will continue with current management for fibromuscular dysplasia, including aspirin therapy and monitoring blood pressure with Valsartan. If lightheadedness persists, a reduction in Valsartan dosage may be considered. For hyperlipidemia, the patient is advised to maintain dietary modifications to support cholesterol management. The patient will trial famotidine in place of omeprazole to address GERD while minimizing potential impacts on calcium and magnesium absorption. Preventative care measures include scheduling a colonoscopy next year and considering the shingles vaccine. The patient is encouraged to maintain current vaccination status, including COVID-19 boosters and Pneumovax. Patient was informed and verbally consented to the use of an ambient scribe for clinic note documentation during this visit. Orders: Orders Vitamin D 25-OH Total 6 Months G62.9 - Polyneuropathy, unspecified, I10 - Essential (primary) hypertension, I77.3 - Arterial fibromuscular dysplasia, Z13.220 - Encounter for screening for lipoid disorders, Z87.898 - Personal history of other specified conditions Aspartate Amino Transferase 6 Months G62.9 - Polyneuropathy, unspecified, I10 - Essential (primary) hypertension, I77.3 - Arterial fibromuscular dysplasia, Z13.220 - Encounter for screening for lipoid disorders, Z87.898 - Personal history of other specified conditions Lipid Panel 6 Months G62.9 - Polyneuropathy, unspecified, I10 - Essential (primary) hypertension, I77.3 - Arterial fibromuscular dysplasia, Z13.220 - Encounter for screening for lipoid disorders, Z87.898 - Personal history of other specified conditions Alanine Aminotransferase 6 Months G62.9 - Polyneuropathy, unspecified, I10 - Essential (primary) hypertension, I77.3 - Arterial fibromuscular dysplasia, Z13.220 - Encounter for screening for lipoid disorders, Z87.898 - Personal history of other specified conditions Medications: New famotidine 40 mg PO DAILY 90 tabs 1RF Refilled valsartan 80 mg PO DAILY 90 tabs 4RF
--- OUTSIDE RECORDS SUMMARY | 2025-04-06 11:18 | XMS_ITS | Encounter Summary ---
Author Organization [facility] Address [address] [place] [address] Phone Care Team Providers Care Viscera Washer Name Role Phone Vadim Young MD Primary Care Provider [phone] Encounter Details Date Type Department Care Team (Late st Contact Info) Description 03/21/2021 Orders Only [facility] [address] [place] [address] Ugo Page MD [address] [facility] [address] [place] [address] Renal infarct (HCC) Social History [...] (HCC) documented in this encounter Care Teams Viscera Washer Relationship Specialty Start Date End Date Vadim Young MD [address] [place] [address] PCP - General Internal Medicine 03/08/21 documented as of this encounter
--- OUTSIDE RECORDS SUMMARY | 2025-04-06 11:18 | XMS_ITS | Clinical Summary ---
Author Organization [facility] Address [address] [place] [address] Care Team Providers Care Turn Out Worker Name Role Phone Theresa Young MD Primary Care Provider [phone] Allergies Active Allergy Reactions Criticality Noted Date [...] 69 04/21/2023 8:55 AM EDT Temperature 35.9 C (96.7 F) 04/21/2023 8:55 AM EDT Respiratory Rate - - Oxygen Saturation 97% [...] 1 - PCV) 2021 Influenza Vaccine (#1) 2025 RSV Adult > 60+ Yrs or Pregn ant (1 - 1-dose 75+ series) 2031 Hepatitis B Vaccines Aged Out No long er eligible based on patient's age to complete this topic RSV Ped < 20 months Aged Out No longe r eligible based on patient's age to complete this topic Care Teams Turn Out Worker Relationship Specialty Start Date End Date Theresa Young MD [address] [place] [address] PCP - General Internal Medicine 04/21/23
== END 2025-04-06 11:36 | disposition home or self-care (01) ==
LOC: HO.HMCC 10:38
PROVIDERS: PCP Internal Medicine; Visit Provider Internal Medicine
DX: Z00.00 Encounter for general adult medical examination without abnormal findings (principal); I10 Essential (primary) hypertension; I77.3 Arterial fibromuscular dysplasia; Z87.898 Personal history of other specified conditions; G62.9 Polyneuropathy, unspecified